=== PATIENT | male | born 1955 | race Hispanic/Latino ===

== ENCOUNTER 2018-12-20 14:48 | Inpatient (IN) | payer MEDICARE ==
[2018-12-20] MEDS ORDERED: REGLAN ONE (15:57)
[2018-12-20] MEDS ORDERED: REGLAN IV ONE (16:10)
[2018-12-20] MEDS ORDERED: NACL 0.9% 1000 ML 1,000 ML IV ONE (16:46)
[2018-12-20] MEDS ORDERED: KEPPRA 1,000 MG/NS 0.75% 100ML 1,000 MG/100 ML BAG IV ONE (16:49)
--- NOTE | 2018-12-20 16:51 | Emergency Department Report ---
HPI - General Chief Complaint: Neuro Symptoms/Deficit Time Seen by Provider: 12/20/18 16:08 - HPI HPI: Room 7 The patient is a 63-year-old male presenting with a chief complaint of seizure. The patient is in a personal halfway staff noted the patient had seizure this afternoon. Patient has no history of seizures. The patient now states he feels weak and dizzy. Staff stated over the past couple weeks they have noticed decrease activity with the patient but he has no specific complaints. 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 pneumonia - Surgical History Past Surgical History?: No Additional Surgical History: Tracheostomy secondary to pneumonia/respiratory failure - Family History Family history: no significant - Social History Smoking Status: Never Smoker Substance Use Type: None - Medications Home Medications: Home Medications Medication Instructions Recorded Confirmed Last Taken Type Aspirin [Adult Aspirin] 81 mg PO DAILY 12/20/18 12/20/18 Unknown History Carbidopa/Levodopa 25-250 [Sinemet 25 - 250 mg PO 4XD 12/20/18 12/20/18 Unknown History 25/250] Lisinopril/Hydrochlorothiazide 12.5 - 20 mg PO DAILY 12/20/18 12/20/18 Unknown History [Zestoretic 20-12.5 mg] Memantine [Namenda] 5 mg PO BID 12/20/18 12/20/18 Unknown History Tamsulosin HCl [Flomax] 0.4 mg PO DAILY 12/20/18 12/20/18 Unknown History amLODIPine [Norvasc] 10 mg PO DAILY 12/20/18 12/20/18 Unknown History ED Review of Systems ROS: Stated complaint: VOMITING/POSS AMS Other details as noted in HPI Constitutional: weakness Eyes: denies: eye pain ENT: denies: throat pain Respiratory: no symptoms reported Cardiovascular: denies: chest pain Endocrine: no symptoms reported Gastrointestinal: nausea, vomiting. denies: abdominal pain Genitourinary: denies: dysuria Musculoskeletal: denies: back pain Neurological: other (dizzy). denies: headache Physical Exam - Physical Exam Vital Signs: Vital Signs 12/20/18 12/20/18 14:59 15:20 Temperature 98.2 F Pulse Rate 66 63 Respiratory 16 16 Rate Blood Pressure 102/59 Blood Pressure 136/60 102/59 [Left] O2 Sat by Pulse 98 95 Oximetry Physical Exam: GENERAL: The patient is well-developed well-nourished male lying on stretcher not appearing to be in acute distress. [] HEENT: Normocephalic. Atraumatic. Extraocular motions are intact. Patient has moist mucous membranes. NECK: Supple. Trachea midline CHEST/LUNGS: Clear to auscultation. There is no respiratory distress noted. HEART/CARDIOVASCULAR: Regular. There is no tachycardia. There is no gallop rub or murmur. ABDOMEN: Abdomen is soft, nontender. Patient has normal bowel sounds. There is no abdominal distention. SKIN: There is no rash. There is no edema. There is no diaphoresis. NEURO: The patient is awake, alert, and oriented. The patient is cooperative. The patient has no focal neurologic deficits. The patient has normal speech. Cranial nerves II through XII grossly intact. MUSCULOSKELETAL: There is no evidence of acute injury. ED Course Vital Signs 12/20/18 12/20/18 14:59 15:20 Temperature 98.2 F Pulse Rate 66 63 Respiratory 16 16 Rate Blood Pressure 102/59 Blood Pressure 136/60 102/59 [Left] O2 Sat by Pulse 98 95 Oximetry ED Medical Decision Making - Lab Data Result diagrams: 12/20/18 16:46 12/20/18 16:46 Laboratory Tests 12/20/18 12/20/18 12/20/18 16:46 16:46 16:46 WBC 16.4 H RBC 4.42 Hgb 13.7 Hct 40.9 MCV 93 MCH 31 MCHC 34 RDW 14.8 Plt Count 220 Lymph % (Auto) 5.4 L Bee % (Auto) 5.7 Eos % (Auto) 0.3 Baso % (Auto) 0.4 Lymph # 0.9 L Bee # 0.9 H Eos # 0.1 Baso # 0.1 Seg Neutrophils % 88.2 H Seg Neutrophils # 14.4 H PT 14.1 INR 1.03 APTT 27.9 Sodium 137 Potassium 5.2 H Chloride 100.5 Carbon Dioxide 22 Anion Gap 20 BUN 39 H Creatinine 1.8 H Estimated GFR 39 BUN/Creatinine Ratio 22 Glucose 136 H Calcium 9.9 Magnesium 2.10 Total Bilirubin 0.40 AST 11 ALT < 5 L Alkaline Phosphatase 79 Total Creatine Kinase 28 L CK-MB (CK-2) < 1.0 CK-MB (CK-2) Rel Index 3.5 Troponin T < 0.010 Total Protein 7.6 Albumin 4.3 Albumin/Globulin Ratio 1.3 - Radiology Data Radiology results: report reviewed (CT head), image reviewed (CT head) [facility] [address] [place] [address] Cat Scan Report Signed Patient: SHAHEEN HOLCOMB MR#: [id number] : 1955 Acct:[id number] Age/Sex: 63 / M ADM Date: 12/20/18 Loc: ED Attending Dr: Ordering Physician: NIDIA WOOD MD Date of Service: 12/20/18 Procedure(s): CT head/brain wo con Accession Number(s): [id number] cc: NIDIA WOOD MD PROCEDURE: CT HEAD/BRAIN WO CON TECHNIQUE: CT examination of the head without IV contrast HISTORY: new-onset seizure COMPARISONS: None FINDINGS: Cerebrovascular atherosclerotic calcification is present in the skull base arteries. No acute air-fluid level visualized in the included air-filled sinuses. Bone windows demonstrate no acute fracture. There is ventricular and sulcal prominence compatible with global cerebrocortical atrophy. The brain contains no mass, mass effect, hemorrhage, or acute infarct. There is no extra-axial intracranial bleed, brain bleed, or midline shift. IMPRESSION: No acute CVA, intracranial bleed, or brain mass This document is electronically signed by Wood Kent MD., December 20 2018 05:56:06 PM ET Transcribed By: BAL Dictated By: WOOD KENT MD Electronically Authenticated By: WOOD KENT MD Signed Date/Time: 12/20/181756 DD/ 50 TD/TT: 12/20/181751 - Differential Diagnosis new-onset seizures, intracranial mass, ICH, electrolyte imbalance Critical care attestation.: If time is entered above; I have spent that time in minutes in the direct care of this critically ill patient, excluding procedure time. ED Disposition Clinical Impression: Seizure, Hyperkalemia, Acute renal failure Disposition: DC09 OP ADMIT IP TO THIS HOSP Is pt being admited?: Yes Does the pt Need Aspirin: No Condition: Fair Referrals: PRIMARY CARE, [Primary Care Provider] - 3-5 Days Time of Disposition: 18:13 (hospitalist notified (Dr Evangelista))
[2018-12-20 17:20] LABS: Basophils # (Auto) 0.1 K/mm3 (0.0-0.1); Basophils % (Auto) 0.4 % (0.0-1.8); Eosinophils # (Auto) 0.1 K/mm3 (0.0-0.4); Eosinophils % (Auto) 0.3 % (0.0-4.3); Hematocrit 40.9 % (35.5-45.6); Hemoglobin 13.7 gm/dl (11.8-15.2); Lymphocytes # (Auto) 0.9 K/mm3 (1.2-5.4); Lymphocytes % (Auto) 5.4 % (13.4-35.0); Mean Corpuscular HGB Conc 34 % (32-34); Mean Corpuscular Volume 93 fl (84-94); Monocytes # (Auto) 0.9 K/mm3 (0.0-0.8); Monocytes % (Auto) 5.7 % (0.0-7.3); Platelet Count 220 K/mm3 (140-440); Red Blood Count 4.42 M/mm3 (3.65-5.03); Red Cell Distribution Width 14.8 % (13.2-15.2)
[2018-12-20 17:25] LABS: Albumin 4.3 g/dL (3.9-5); BUN/Creatinine Ratio 22; Blood Urea Nitrogen 39 mg/dL (9-20); Calcium 9.9 mg/dL (8.4-10.2); Hemolysis Index 10
[2018-12-20 17:29] LABS: INR 1.03 (0.87-1.13)
[2018-12-20 17:30] LABS: Partial Thromboplastin Time 27.9 Sec. (24.2-36.6)
[2018-12-20 17:33] LABS: Alanine Aminotransferase < 5 units/L (7-56); Creatine Kinase MB < 1.0 ng/mL (0.0-4.0)
--- NOTE | 2018-12-20 17:57 | Cat Scan Report ---
PROCEDURE: CT HEAD/BRAIN WO CON TECHNIQUE: CT examination of the head without IV contrast HISTORY: new-onset seizure COMPARISONS: None FINDINGS: Cerebrovascular atherosclerotic calcification is present in the skull base arteries. No acute air-fluid level visualized in the included air-filled sinuses. Bone windows demonstrate no acute fracture. There is ventricular and sulcal prominence compatible with global cerebrocortical atrophy. The brain contains no mass, mass effect, hemorrhage, or acute infarct. There is no extra-axial intracranial bleed, brain bleed, or midline shift. IMPRESSION: No acute CVA, intracranial bleed, or brain mass This document is electronically signed by Wood Kent MD., December 20 2018 05:56:06 PM ET
[2018-12-20] MEDS ORDERED: KIONEX PO ONE (18:04)
[2018-12-21] MEDS ORDERED: PERCOCET 5/325 PO PRN (00:58)
[2018-12-21] MEDS ORDERED: SODIUM CHLORIDE FLUSH SYRINGE 10 ML IV PRN (00:58)
[2018-12-21] MEDS ORDERED: DILAUDID IV PRN (00:58)
[2018-12-21] MEDS ORDERED: TYLENOL PO PRN (00:58)
[2018-12-21] MEDS ORDERED: ZOFRAN IV PRN (00:58)
[2018-12-21] MEDS: NACL 0.9% 1000 ML 1,000 ML IV SCH ×2 (01:37→17:22)
[2018-12-21] MEDS: NAMENDA PO SCH ×3 (02:01→21:40)
[2018-12-21] MEDS: KEPPRA 750 MG in D5W 100 ML IV SCH ×2 (05:27→17:40)
--- NOTE | 2018-12-21 07:07 | Event Note ---
Date: 12/20/18 New onset seizures Parkinsonism
--- NOTE | 2018-12-21 08:05 | History and Physical Report ---
CHIEF COMPLAINT: New onset seizures. HISTORY OF PRESENT ILLNESS: A 63-year-old male, a resident of personal snf secondary to his parkinsonism, sent from personal snf for new onset seizures. The patient had tonic-clonic seizure movements lasting for about 1 minute as per the personal care staff and and son. The patient states that he feels weak and dizzy now. Some postictal activity present. PAST MEDICAL HISTORY: Parkinsonism, hypertension, GERD. PAST SURGICAL HISTORY: Tracheostomy secondary to pneumonia and respiratory failure. FAMILY HISTORY: Hypertension. SOCIAL HISTORY: Does not smoke. No alcohol, no recreational drugs. CURRENT MEDICATIONS: Namenda 5 mg twice a day, Flomax 0.4 daily, amlodipine 10 mg daily, Sinemet 25/250 four times a day, lisinopril 20 mg daily, hydrochlorothiazide 12.5 daily. REVIEW OF SYSTEMS: Significant for new onset seizures, slightly postictal. Otherwise, no other complaints. A 14-point review of systems is done. PHYSICAL EXAMINATION: GENERAL: A young elderly male, obese, cooperative during examination. VITAL SIGNS: Blood pressure is 106/64, temperature 98, pulse is 58, respirations 15. HEENT: Unremarkable. Pupils equal and reactive. NECK: Supple, no lymphadenopathy, no thyromegaly. LUNGS: Clear to auscultation and percussion. Good air entry. CARDIOVASCULAR: S1, S2 heard. No gallop, no murmur, no rub. Apical impulse in left fifth intercostal space and midclavicular line. ABDOMEN: Soft and benign. No hepatosplenomegaly. No guarding, no rigidity. Hernial orifices are normal. EXTREMITIES: Good pedal pulses. No pedal edema. CENTRAL NERVOUS SYSTEM: Alert and oriented x 4, nonfocal exam. SKIN: Normal. LABORATORY DATA: Head CT shows no acute CVA, no intracranial bleed, no brain mass. EKG, normal sinus rhythm. ASSESSMENT AND PLAN: 1. New onset seizures. The patient initiated on IV Keppra 750 q. 12. The patient to be transitioned to p.o. Keppra and possible discharge in 48 hours. 2. Hypertension. Continue lisinopril and amlodipine. 3 Parkinsonism. Continue Sinemet. 4. Dementia, mild. Continue Namenda. 5. Benign prostatic hypertrophy. Continue Flomax 0.4 daily. 6.WICHO IV fluids for now 7. Deep venous thrombosis prophylaxis, Lovenox 40 mg subcutaneous daily and gastrointestinal prophylaxis. JOB# [id number] ANNM/LACHO MTDD
[2018-12-21 09:04] LABS: Calcium 9.4 mg/dL (8.4-10.2)
[2018-12-21] MEDS: HALFPRIN EC PO SCH (09:46)
[2018-12-21] MEDS: PEPCID PO SCH ×2 (09:46→21:40)
[2018-12-21] MEDS: FLOMAX PO SCH (09:46)
[2018-12-21] MEDS: SINEMET PO SCH ×4 (09:46→21:40)
[2018-12-21] MEDS: SODIUM CHLORIDE FLUSH SYRINGE 10 ML IV SCH ×2 (09:47→21:40)
[2018-12-21] MEDS ORDERED: LISINOPRIL PO SCH (10:00)
[2018-12-21] MEDS ORDERED: ZESTRIL PO SCH (10:00)
[2018-12-21] MEDS ORDERED: HCTZ PO SCH (10:00)
[2018-12-21] MEDS ORDERED: NORVASC PO SCH (10:00)
[2018-12-21] MEDS ORDERED: HYDROCHLOROTHIAZIDE PO SCH (10:00)
--- NOTE | 2018-12-21 11:32 | Progress Note ---
Subjective Date of service: 12/21/18 Interval history: see my dictated note on this patient hx of Parkinson' Disease and now had seizure the CT of the ehad is negative will assess further check EEG and MRI seizures " as a rule" rare in Parkinson's therefore could well be renal based Objective - Vital Sign Vital Signs - 12hr 12/21/18 12/21/18 01:17 04:45 Temperature 98.6 F Pulse Rate 60 Respiratory 20 20 Rate Blood Pressure 104/54 O2 Sat by Pulse 95 Oximetry - Laboratory Findings CBC and BMP: 12/20/18 16:46 12/21/18 06:38 Abnormal Lab Findings: Abnormal Labs 12/20/18 12/20/18 12/21/18 16:46 16:46 01:13 WBC 16.4 H Lymph % (Auto) 5.4 L Lymph # 0.9 L [place] # 0.9 H Seg Neutrophils % 88.2 H Seg Neutrophils # 14.4 H Potassium 5.2 H BUN 39 H Creatinine 1.8 H Glucose 136 H Hemoglobin A1c 6.1 H ALT < 5 L Total Creatine Kinase 28 L 12/21/18 06:38 WBC Lymph % (Auto) Lymph # [place] # Seg Neutrophils % Seg Neutrophils # Potassium BUN 36 H Creatinine Glucose Hemoglobin A1c ALT Total Creatine Kinase
--- NOTE | 2018-12-21 13:55 | Progress Note ---
Assessment and Plan Assessment and plan: New onset seizure -On IV Keppra -MRI brain and EEG pending -Neurology consulted Acute kidney injury, probably prerenal -Creatinine level improving on IV fluid, will monitor Hyperkalemia -Resolved Leukocytosis -Probably reactive, will monitor History of Parkinson's disease -Continue carbi/levodopa Hypertension -Stable BPH -Continue tamsulosin Disposition: For discharge when medically stable History Interval history: Patient reports feeling better today. He has no new complaints. No seizure activity reported overnight. Hospitalist Physical - Constitutional Vitals: Temp Pulse Resp BP Pulse Ox 98.7 F 67 22 133/83 95 12/21/18 12:11 12/21/18 12:11 12/21/18 12:11 12/21/18 12:11 12/21/18 12:11 General appearance: Present: no acute distress - EENT Eyes: Present: PERRL, EOM intact ENT: hearing intact, clear oral mucosa - Neck Neck: Present: supple - Respiratory Respiratory effort: normal Respiratory: bilateral: CTA - Cardiovascular Rhythm: regular Heart Sounds: Present: S1 & S2 - Extremities Extremities: No edema - Abdominal General gastrointestinal: soft, non-tender, normal bowel sounds - Integumentary Integumentary: Present: clear, warm, dry - Neurologic Neurologic: other (Alert and oriented3) Results - Labs CBC & Chem 7: 12/20/18 16:46 12/21/18 06:38 Labs: Laboratory Last Values WBC 16.4 K/mm3 (4.5-11.0) H 12/20/18 16:46 RBC 4.42 M/mm3 (3.65-5.03) 12/20/18 16:46 Hgb 13.7 gm/dl (11.8-15.2) 12/20/18 16:46 Hct 40.9 % (35.5-45.6) 12/20/18 16:46 MCV 93 fl (84-94) 12/20/18 16:46 MCH 31 pg (28-32) 12/20/18 16:46 MCHC 34 % (32-34) 12/20/18 16:46 RDW 14.8 % (13.2-15.2) 12/20/18 16:46 Plt Count 220 K/mm3 (140-440) 12/20/18 16:46 Lymph % (Auto) 5.4 % (13.4-35.0) L 12/20/18 16:46 [place] % (Auto) 5.7 % (0.0-7.3) 12/20/18 16:46 Eos % (Auto) 0.3 % (0.0-4.3) 12/20/18 16:46 Baso % (Auto) 0.4 % (0.0-1.8) 12/20/18 16:46 Lymph # 0.9 K/mm3 (1.2-5.4) L 12/20/18 16:46 [place] # 0.9 K/mm3 (0.0-0.8) H 12/20/18 16:46 Eos # 0.1 K/mm3 (0.0-0.4) 12/20/18 16:46 Baso # 0.1 K/mm3 (0.0-0.1) 12/20/18 16:46 Seg Neutrophils % 88.2 % (40.0-70.0) H 12/20/18 16:46 Seg Neutrophils # 14.4 K/mm3 (1.8-7.7) H 12/20/18 16:46 PT 14.1 Sec. (12.2-14.9) 12/20/18 16:46 INR 1.03 (0.87-1.13) 12/20/18 16:46 APTT 27.9 Sec. (24.2-36.6) 12/20/18 16:46 Sodium 142 mmol/L (137-145) 12/21/18 06:38 Potassium 4.3 mmol/L (3.6-5.0) 12/21/18 06:38 Chloride 103.6 mmol/L (98-107) 12/21/18 06:38 Carbon Dioxide 23 mmol/L (22-30) 12/21/18 06:38 Anion Gap 20 mmol/L 12/21/18 06:38 BUN 36 mg/dL (9-20) H 12/21/18 06:38 Creatinine 1.4 mg/dL (0.8-1.5) 12/21/18 06:38 Estimated GFR 52 ml/min 12/21/18 06:38 BUN/Creatinine Ratio 26 % 12/21/18 06:38 Glucose 85 mg/dL (75-100) 12/21/18 06:38 Hemoglobin A1c 6.1 % (4-6) H 12/21/18 01:13 Calcium 9.4 mg/dL (8.4-10.2) 12/21/18 06:38 Magnesium 2.10 mg/dL (1.7-2.3) 12/20/18 16:46 Total Bilirubin 0.40 mg/dL (0.1-1.2) 12/20/18 16:46 AST 11 units/L (5-40) 12/20/18 16:46 ALT < 5 units/L (7-56) L 12/20/18 16:46 Alkaline Phosphatase 79 units/L (35-129) 12/20/18 16:46 Total Creatine Kinase 28 units/L (55-170) L 12/20/18 16:46 CK-MB (CK-2) < 1.0 ng/mL (0.0-4.0) 12/20/18 16:46 CK-MB (CK-2) Rel Index 3.5 (0-4) 12/20/18 16:46 Troponin T < 0.010 ng/mL (0.00-0.029) 12/20/18 16:46 Total Protein 7.6 g/dL (6.3-8.2) 12/20/18 16:46 Albumin 4.3 g/dL (3.9-5) 12/20/18 16:46 Albumin/Globulin Ratio 1.3 % 12/20/18 16:46 Active Medications - Current Medications Current Medications: Generic Name Dose Route Start Last Admin Trade Name Freq PRN Reason Stop Dose Admin Acetaminophen 650 mg 12/21/18 00:58 Tylenol PO Q4H PRN Pain MILD(1-3)/Fever >100.5/MORALES Aspirin 81 mg 12/21/18 10:00 12/21/18 09:46 Halfprin Ec PO 81 mg DAILY DARCI Administration Carbidopa/Levodopa 1 each 12/21/18 10:00 12/21/18 13:29 Sinemet PO 1 each QID DARCI Administration Enoxaparin Sodium 40 mg 12/21/18 22:00 Lovenox SUB-Q QDAY@2200 DARCI Famotidine 20 mg 12/21/18 10:00 12/21/18 09:46 Pepcid PO 20 mg BID DARCI Administration Hydromorphone HCl 0.5 mg 12/21/18 00:58 Dilaudid IV Q3H PRN Pain , Severe (7-10) Sodium Chloride 1,000 mls @ 75 mls/hr 12/21/18 01:00 12/21/18 01:37 Nacl 0.9% 1000 Ml IV 75 mls/hr DIRECT DARCI Administration Levetiracetam 750 mg/ Dextrose 107.5 mls @ 400 mls/hr 12/21/18 06:00 12/21/18 05:27 IV 400 mls/hr Q12H DARCI Administration Memantine 5 mg 12/21/18 01:00 12/21/18 09:46 Namenda PO 5 mg BID DARCI Administration Ondansetron HCl 4 mg 12/21/18 00:58 Zofran IV Q8H PRN Nausea And Vomiting Oxycodone/Acetaminophen 1 tab 12/21/18 00:58 Percocet 5/325 PO Q6H PRN Pain, Moderate (4-6) Sodium Chloride 10 ml 12/21/18 10:00 12/21/18 09:47 Sodium Chloride Flush Syringe 10 Ml IV 10 ml BID DARCI Administration Sodium Chloride 10 ml 12/21/18 00:58 Sodium Chloride Flush Syringe 10 Ml IV PRN PRN LINE FLUSH Tamsulosin HCl 0.4 mg 12/21/18 10:00 12/21/18 09:46 Flomax PO 0.4 mg DAILY DARCI Administration
--- NOTE | 2018-12-21 18:47 | Consultation ---
HISTORY OF PRESENT ILLNESS: This is a 63-year-old white male that is admitted to [facility] via the Emergency Room after he had presented with a generalized seizure. The patient was by his history in a personal senior care. He had a generalized seizure, became dizzy. He states he has Parkinson's disease. He has been taking amantadine, Flomax, lisinopril, and Sinemet mg 4 times a day, who presented to the Emergency Room, he was normotensive. His labs showed hematocrit of 40.9, PT of 14.1, calcium is 2.1, glucose is 136, AST and ALT levels were unremarkable. Total protein is 4.3. The patient was assessed thought to have new onset of seizures, rule out intracranial mass, intracranial hemorrhage, electrolyte imbalance. He is also thought to have severe hyperkalemia with a potassium of 5.2 and creatinine of 1.8. PHYSICAL EXAMINATION: GENERAL: Reveals he is alert, responsive. Affect is appropriate. Speech is clear. NECK: Supple: VITAL SIGNS: Blood pressure is 150/80, pulse rate 80, respirations 18. NEUROLOGIC: A slight increased rigidity, no marked tremors are noted. He is alert and oriented. He knows where he is. He can follow simple commands. I do not see any seizure activity on examining him. The patient does not have any overt symptoms of severe Parkinson's disease. Memory is good. IMPRESSION AND PLAN: This patient has a generalized seizure. Certainly this could be related to his renal failure and/or his elevated potassium. Would recommend starting the patient on Keppra therapy. We will get EEG and MRI scan of the brain to further assess the patient's condition. JOB# [id number] ROXANNE/NTS
[2018-12-21] MEDS: LOVENOX SUB-Q SCH (21:40)
[2018-12-22] MEDS: NACL 0.9% 1000 ML 1,000 ML IV SCH (03:27)
[2018-12-22] MEDS: KEPPRA 750 MG in D5W 100 ML IV SCH ×2 (07:15→17:58)
[2018-12-22 08:36] LABS: Alanine Aminotransferase 12 units/L (7-56); BUN/Creatinine Ratio 24; Blood Urea Nitrogen 26 mg/dL (9-20); Hemolysis Index 5
[2018-12-22 10:38] LABS: Basophils % (Auto) 0.6 % (0.0-1.8); Eosinophils # (Auto) 0.3 K/mm3 (0.0-0.4); Eosinophils % (Auto) 4.2 % (0.0-4.3); Hematocrit 36.9 % (35.5-45.6); Hemoglobin 12.6 gm/dl (11.8-15.2); Lymphocytes # (Auto) 2.3 K/mm3 (1.2-5.4); Lymphocytes % (Auto) 32.5 % (13.4-35.0); Mean Corpuscular HGB Conc 34 % (32-34); Mean Corpuscular Volume 93 fl (84-94); Monocytes # (Auto) 0.7 K/mm3 (0.0-0.8); Monocytes % (Auto) 9.6 % (0.0-7.3); Platelet Count 189 K/mm3 (140-440); Red Blood Count 3.97 M/mm3 (3.65-5.03); Red Cell Distribution Width 14.9 % (13.2-15.2)
--- NOTE | 2018-12-22 11:06 | Progress Note ---
Assessment and Plan Assessment and plan: New onset seizure -Continue IV Keppra -MRI brain and EEG pending -Neurology following Acute kidney injury, probably prerenal azotemia -Resolved Hyperkalemia -Resolved Leukocytosis -Probably reactive, resolved -Urinalysis negative History of Parkinson's disease -Continue carbi/levodopa Hypertension -Stable BPH -Continue tamsulosin Disposition: Awaiting pending studies before discharge planning History Interval history: Patient has no new complaints. No seizure activity reported overnight. Hospitalist Physical - Constitutional Vitals: Temp Pulse Resp BP Pulse Ox 98.6 F 60 24 117/64 94 12/22/18 04:55 12/22/18 04:55 12/22/18 04:55 12/22/18 04:55 12/22/18 04:55 General appearance: Present: no acute distress - EENT Eyes: Present: PERRL, EOM intact ENT: hearing intact, clear oral mucosa - Neck Neck: Present: supple - Respiratory Respiratory effort: normal Respiratory: bilateral: CTA - Cardiovascular Rhythm: regular Heart Sounds: Present: S1 & S2 - Extremities Extremities: No edema - Abdominal General gastrointestinal: soft, non-tender, normal bowel sounds - Integumentary Integumentary: Present: clear, warm, dry - Neurologic Neurologic: other (Alert and oriented x3) Results - Labs CBC & Chem 7: 12/22/18 06:41 12/22/18 06:41 Labs: Laboratory Last Values WBC 7.2 K/mm3 (4.5-11.0) 12/22/18 06:41 RBC 3.97 M/mm3 (3.65-5.03) 12/22/18 06:41 Hgb 12.6 gm/dl (11.8-15.2) 12/22/18 06:41 Hct 36.9 % (35.5-45.6) 12/22/18 06:41 MCV 93 fl (84-94) 12/22/18 06:41 MCH 32 pg (28-32) 12/22/18 06:41 MCHC 34 % (32-34) 12/22/18 06:41 RDW 14.9 % (13.2-15.2) 12/22/18 06:41 Plt Count 189 K/mm3 (140-440) 12/22/18 06:41 Lymph % (Auto) 32.5 % (13.4-35.0) 12/22/18 06:41 [place] % (Auto) 9.6 % (0.0-7.3) H 12/22/18 06:41 Eos % (Auto) 4.2 % (0.0-4.3) 12/22/18 06:41 Baso % (Auto) 0.6 % (0.0-1.8) 12/22/18 06:41 Lymph # 2.3 K/mm3 (1.2-5.4) 12/22/18 06:41 [place] # 0.7 K/mm3 (0.0-0.8) 12/22/18 06:41 Eos # 0.3 K/mm3 (0.0-0.4) 12/22/18 06:41 Baso # 0.0 K/mm3 (0.0-0.1) 12/22/18 06:41 Seg Neutrophils % 53.1 % (40.0-70.0) 12/22/18 06:41 Seg Neutrophils # 3.8 K/mm3 (1.8-7.7) 12/22/18 06:41 PT 14.1 Sec. (12.2-14.9) 12/20/18 16:46 INR 1.03 (0.87-1.13) 12/20/18 16:46 APTT 27.9 Sec. (24.2-36.6) 12/20/18 16:46 Sodium 142 mmol/L (137-145) 12/22/18 06:41 Potassium 4.0 mmol/L (3.6-5.0) 12/22/18 06:41 Chloride 106.2 mmol/L (98-107) 12/22/18 06:41 Carbon Dioxide 24 mmol/L (22-30) 12/22/18 06:41 Anion Gap 16 mmol/L 12/22/18 06:41 BUN 26 mg/dL (9-20) H 12/22/18 06:41 Creatinine 1.1 mg/dL (0.8-1.5) 12/22/18 06:41 Estimated GFR > 60 ml/min 12/22/18 06:41 BUN/Creatinine Ratio 24 % 12/22/18 06:41 Glucose 87 mg/dL (75-100) 12/22/18 06:41 Hemoglobin A1c 6.1 % (4-6) H 12/21/18 01:13 Calcium 9.0 mg/dL (8.4-10.2) 12/22/18 06:41 Magnesium 2.10 mg/dL (1.7-2.3) 12/20/18 16:46 Total Bilirubin 0.30 mg/dL (0.1-1.2) 12/22/18 06:41 AST 11 units/L (5-40) 12/22/18 06:41 ALT 12 units/L (7-56) 12/22/18 06:41 Alkaline Phosphatase 68 units/L (35-129) 12/22/18 06:41 Total Creatine Kinase 28 units/L (55-170) L 12/20/18 16:46 CK-MB (CK-2) < 1.0 ng/mL (0.0-4.0) 12/20/18 16:46 CK-MB (CK-2) Rel Index 3.5 (0-4) 12/20/18 16:46 Troponin T < 0.010 ng/mL (0.00-0.029) 12/20/18 16:46 Total Protein 6.8 g/dL (6.3-8.2) 12/22/18 06:41 Albumin 4.0 g/dL (3.9-5) 12/22/18 06:41 Albumin/Globulin Ratio 1.4 % 12/22/18 06:41 Active Medications - Current Medications Current Medications: Generic Name Dose Route Start Last Admin Trade Name Freq PRN Reason Stop Dose Admin Acetaminophen 650 mg 12/21/18 00:58 Tylenol PO Q4H PRN Pain MILD(1-3)/Fever >100.5/MORALES Aspirin 81 mg 12/21/18 10:00 12/21/18 09:46 Halfprin Ec PO 81 mg DAILY DARCI Administration Carbidopa/Levodopa 1 each 12/21/18 10:00 12/21/18 21:40 Sinemet PO 1 each QID DARCI Administration Enoxaparin Sodium 40 mg 12/21/18 22:00 12/21/18 21:40 Lovenox SUB-Q 40 mg QDAY@2200 DARCI Administration Famotidine 20 mg 12/21/18 10:00 12/21/18 21:40 Pepcid PO 20 mg BID DARCI Administration Hydromorphone HCl 0.5 mg 12/21/18 00:58 Dilaudid IV Q3H PRN Pain , Severe (7-10) Sodium Chloride 1,000 mls @ 75 mls/hr 12/21/18 01:00 12/22/18 03:27 Nacl 0.9% 1000 Ml IV 75 mls/hr DIRECT DARCI Administration Levetiracetam 750 mg/ Dextrose 107.5 mls @ 400 mls/hr 12/21/18 06:00 12/22/18 07:15 IV 400 mls/hr Q12H DARCI Administration Memantine 5 mg 12/21/18 01:00 12/21/18 21:40 Namenda PO 5 mg BID DARCI Administration Ondansetron HCl 4 mg 12/21/18 00:58 Zofran IV Q8H PRN Nausea And Vomiting Oxycodone/Acetaminophen 1 tab 12/21/18 00:58 Percocet 5/325 PO Q6H PRN Pain, Moderate (4-6) Sodium Chloride 10 ml 12/21/18 10:00 12/21/18 21:40 Sodium Chloride Flush Syringe 10 Ml IV 10 ml BID DARCI Administration Sodium Chloride 10 ml 12/21/18 00:58 Sodium Chloride Flush Syringe 10 Ml IV PRN PRN LINE FLUSH Tamsulosin HCl 0.4 mg 12/21/18 10:00 12/21/18 09:46 Flomax PO 0.4 mg DAILY DARCI Administration
[2018-12-22] MEDS: PEPCID PO SCH ×2 (12:55→21:55)
[2018-12-22] MEDS: HALFPRIN EC PO SCH (12:55)
[2018-12-22] MEDS: SINEMET PO SCH ×4 (12:55→21:55)
[2018-12-22] MEDS: FLOMAX PO SCH (12:56)
[2018-12-22] MEDS: NAMENDA PO SCH ×2 (12:56→21:54)
[2018-12-22] MEDS: SODIUM CHLORIDE FLUSH SYRINGE 10 ML IV SCH ×2 (12:57→22:32)
--- NOTE | 2018-12-22 20:42 | Magnetic Resonance Report ---
PROCEDURE: MR BRAIN WO CON HISTORY: new onset seizure FINDINGS: MRI of the brain was performed using sagittal T1, axial diffusion, axial T2, axial FLAIR, a xial T2*gradient echo, and coronal FLAIR images. These images demonstrate that there is a complete corpus callosum. There is no Chiari malformation. Diffusion-weighted images demonstrate no acute transcortical or acute lacunar infarct. There is normal wong-white differentiation. There are mild chronic-appearing small vessel ischemic wh ite matter changes in the subcortical and periventricular white matter. There are normal flow voids in the vertebral arteries, basilar artery, and both internal carotid ezequiel baljit. The mastoid air cells and middle ears appear clear. There is no evidence of acute sinusitis. IMPRESSION: No acute transcortical or acute lacunar infarct This document is electronically signed by Jefferson Orta MD., December 22 2018 08:40:18 PM ET
[2018-12-22] MEDS: LOVENOX SUB-Q SCH (21:55)
[2018-12-23] MEDS: HALFPRIN EC PO SCH (10:34)
[2018-12-23] MEDS: KEPPRA PO SCH ×2 (10:34→22:00)
[2018-12-23] MEDS: FLOMAX PO SCH (10:35)
[2018-12-23] MEDS: SINEMET PO SCH ×3 (10:35→18:00)
[2018-12-23] MEDS: PEPCID PO SCH ×2 (10:36→22:00)
[2018-12-23] MEDS: NAMENDA PO SCH ×2 (10:36→22:00)
--- NOTE | 2018-12-23 12:49 | Progress Note ---
Assessment and Plan Assessment and plan: New onset seizure -Stable -Continue oral Keppra -MRI brain negative for acute findings. EEG pending -Neurology following Acute kidney injury -probably vasomotor nephropathy -Resolved Hyperkalemia -Resolved Leukocytosis -Probably reactive, resolved -Urinalysis negative History of Parkinson's disease -stable -Continue carbi/levodopa Hypertension -Stable, home amlodipine resumed BPH -Continue tamsulosin Physical deconditioning -PT consulted Disposition: Awaiting EEG before discharge. History Interval history: Patient reported some wheezing this morning. No seizure activity reported overnight. Hospitalist Physical - Constitutional Vitals: Temp Pulse Resp BP Pulse Ox 98.0 F 61 18 141/76 93 12/23/18 11:54 12/23/18 11:54 12/23/18 11:54 12/23/18 11:54 12/23/18 11:54 General appearance: Present: no acute distress - EENT Eyes: Present: PERRL, EOM intact ENT: hearing intact, clear oral mucosa - Neck Neck: Present: supple, normal ROM - Respiratory Respiratory effort: normal Respiratory: bilateral: CTA - Cardiovascular Rhythm: regular Heart Sounds: Present: S1 & S2 - Extremities Extremities: No edema - Abdominal General gastrointestinal: soft, non-tender, normal bowel sounds - Integumentary Integumentary: Present: clear, warm, dry - Neurologic Neurologic: moves all extremities Results - Labs CBC & Chem 7: 12/22/18 06:41 12/22/18 06:41 Labs: Laboratory Last Values WBC 7.2 K/mm3 (4.5-11.0) 12/22/18 06:41 RBC 3.97 M/mm3 (3.65-5.03) 12/22/18 06:41 Hgb 12.6 gm/dl (11.8-15.2) 12/22/18 06:41 Hct 36.9 % (35.5-45.6) 12/22/18 06:41 MCV 93 fl (84-94) 12/22/18 06:41 MCH 32 pg (28-32) 12/22/18 06:41 MCHC 34 % (32-34) 12/22/18 06:41 RDW 14.9 % (13.2-15.2) 12/22/18 06:41 Plt Count 189 K/mm3 (140-440) 12/22/18 06:41 Lymph % (Auto) 32.5 % (13.4-35.0) 12/22/18 06:41 [place] % (Auto) 9.6 % (0.0-7.3) H 12/22/18 06:41 Eos % (Auto) 4.2 % (0.0-4.3) 12/22/18 06:41 Baso % (Auto) 0.6 % (0.0-1.8) 12/22/18 06:41 Lymph # 2.3 K/mm3 (1.2-5.4) 12/22/18 06:41 [place] # 0.7 K/mm3 (0.0-0.8) 12/22/18 06:41 Eos # 0.3 K/mm3 (0.0-0.4) 12/22/18 06:41 Baso # 0.0 K/mm3 (0.0-0.1) 12/22/18 06:41 Seg Neutrophils % 53.1 % (40.0-70.0) 12/22/18 06:41 Seg Neutrophils # 3.8 K/mm3 (1.8-7.7) 12/22/18 06:41 PT 14.1 Sec. (12.2-14.9) 12/20/18 16:46 INR 1.03 (0.87-1.13) 12/20/18 16:46 APTT 27.9 Sec. (24.2-36.6) 12/20/18 16:46 Sodium 142 mmol/L (137-145) 12/22/18 06:41 Potassium 4.0 mmol/L (3.6-5.0) 12/22/18 06:41 Chloride 106.2 mmol/L (98-107) 12/22/18 06:41 Carbon Dioxide 24 mmol/L (22-30) 12/22/18 06:41 Anion Gap 16 mmol/L 12/22/18 06:41 BUN 26 mg/dL (9-20) H 12/22/18 06:41 Creatinine 1.1 mg/dL (0.8-1.5) 12/22/18 06:41 Estimated GFR > 60 ml/min 12/22/18 06:41 BUN/Creatinine Ratio 24 % 12/22/18 06:41 Glucose 87 mg/dL (75-100) 12/22/18 06:41 Hemoglobin A1c 6.1 % (4-6) H 12/21/18 01:13 Calcium 9.0 mg/dL (8.4-10.2) 12/22/18 06:41 Magnesium 2.10 mg/dL (1.7-2.3) 12/20/18 16:46 Total Bilirubin 0.30 mg/dL (0.1-1.2) 12/22/18 06:41 AST 11 units/L (5-40) 12/22/18 06:41 ALT 12 units/L (7-56) 12/22/18 06:41 Alkaline Phosphatase 68 units/L (35-129) 12/22/18 06:41 Total Creatine Kinase 28 units/L (55-170) L 12/20/18 16:46 CK-MB (CK-2) < 1.0 ng/mL (0.0-4.0) 12/20/18 16:46 CK-MB (CK-2) Rel Index 3.5 (0-4) 12/20/18 16:46 Troponin T < 0.010 ng/mL (0.00-0.029) 12/20/18 16:46 Total Protein 6.8 g/dL (6.3-8.2) 12/22/18 06:41 Albumin 4.0 g/dL (3.9-5) 12/22/18 06:41 Albumin/Globulin Ratio 1.4 % 12/22/18 06:41 Active Medications - Current Medications Current Medications: Generic Name Dose Route Start Last Admin Trade Name Mattq PRN Reason Stop Dose Admin Acetaminophen 650 mg 12/21/18 00:58 Tylenol PO Q4H PRN Pain MILD(1-3)/Fever >100.5/MORALES Aspirin 81 mg 12/21/18 10:00 12/23/18 10:34 Halfprin Ec PO 81 mg DAILY DARCI Administration Carbidopa/Levodopa 1 each 12/21/18 10:00 12/23/18 10:35 Sinemet PO 1 each QID DARCI Administration Enoxaparin Sodium 40 mg 12/21/18 22:00 12/22/18 21:55 Lovenox SUB-Q 40 mg QDAY@2200 DARCI Administration Famotidine 20 mg 12/21/18 10:00 12/23/18 10:36 Pepcid PO 20 mg BID DARCI Administration Hydromorphone HCl 0.5 mg 12/21/18 00:58 Dilaudid IV Q3H PRN Pain , Severe (7-10) Levetiracetam 750 mg 12/23/18 10:00 12/23/18 10:34 Keppra PO 750 mg BID DARCI Administration Memantine 5 mg 12/21/18 01:00 12/23/18 10:36 Namenda PO 5 mg BID DARCI Administration Ondansetron HCl 4 mg 12/21/18 00:58 Zofran IV Q8H PRN Nausea And Vomiting Oxycodone/Acetaminophen 1 tab 12/21/18 00:58 Percocet 5/325 PO Q6H PRN Pain, Moderate (4-6) Sodium Chloride 10 ml 12/21/18 10:00 12/22/18 22:32 Sodium Chloride Flush Syringe 10 Ml IV 10 ml BID DARCI Administration Sodium Chloride 10 ml 12/21/18 00:58 Sodium Chloride Flush Syringe 10 Ml IV PRN PRN LINE FLUSH Tamsulosin HCl 0.4 mg 12/21/18 10:00 12/23/18 10:35 Flomax PO 0.4 mg DAILY DARCI Administration
[2018-12-23] MEDS: SODIUM CHLORIDE FLUSH SYRINGE 10 ML IV SCH ×2 (14:36→22:00)
[2018-12-23] MEDS: NORVASC PO SCH (14:36)
--- NOTE | 2018-12-23 16:24 | Progress Note ---
Subjective Date of service: 12/23/18 Interval history: the recent EEG is normal for age and did not confirm epilepsy Objective - Vital Sign Vital Signs - 12hr 12/23/18 12/23/18 12/23/18 06:01 10:53 11:54 Temperature 98.0 F 98.0 F Pulse Rate 51 L 71 61 Respiratory 18 18 18 Rate Blood Pressure 140/81 141/76 O2 Sat by Pulse 95 99 93 Oximetry 12/23/18 14:36 Temperature Pulse Rate 61 Respiratory Rate Blood Pressure 141/76 O2 Sat by Pulse Oximetry - Laboratory Findings CBC and BMP: 12/22/18 06:41 12/22/18 06:41 Abnormal Lab Findings: Abnormal Labs 12/20/18 12/20/18 12/21/18 16:46 16:46 01:13 WBC 16.4 H Lymph % (Auto) 5.4 L [place] % (Auto) Lymph # 0.9 L [place] # 0.9 H Seg Neutrophils % 88.2 H Seg Neutrophils # 14.4 H Potassium 5.2 H BUN 39 H Creatinine 1.8 H Glucose 136 H Hemoglobin A1c 6.1 H ALT < 5 L Total Creatine Kinase 28 L 12/21/18 12/22/18 12/22/18 06:38 06:41 06:41 WBC Lymph % (Auto) [place] % (Auto) 9.6 H Lymph # [place] # Seg Neutrophils % Seg Neutrophils # Potassium BUN 36 H 26 H Creatinine Glucose Hemoglobin A1c ALT Total Creatine Kinase
--- NOTE | 2018-12-23 16:27 | Progress Note ---
Subjective Date of service: 12/23/18 Interval history: I only note scattered white matter changes from degnerative disease c/w Parkinson Disease OK to go back to assisted living with keppra therapy Objective - Vital Sign Vital Signs - 12hr 12/23/18 12/23/18 12/23/18 06:01 10:53 11:54 Temperature 98.0 F 98.0 F Pulse Rate 51 L 71 61 Respiratory 18 18 18 Rate Blood Pressure 140/81 141/76 O2 Sat by Pulse 95 99 93 Oximetry 12/23/18 14:36 Temperature Pulse Rate 61 Respiratory Rate Blood Pressure 141/76 O2 Sat by Pulse Oximetry - Laboratory Findings CBC and BMP: 12/22/18 06:41 12/22/18 06:41 Abnormal Lab Findings: Abnormal Labs 12/20/18 12/20/18 12/21/18 16:46 16:46 01:13 WBC 16.4 H Lymph % (Auto) 5.4 L [place] % (Auto) Lymph # 0.9 L [place] # 0.9 H Seg Neutrophils % 88.2 H Seg Neutrophils # 14.4 H Potassium 5.2 H BUN 39 H Creatinine 1.8 H Glucose 136 H Hemoglobin A1c 6.1 H ALT < 5 L Total Creatine Kinase 28 L 12/21/18 12/22/18 12/22/18 06:38 06:41 06:41 WBC Lymph % (Auto) [place] % (Auto) 9.6 H Lymph # [place] # Seg Neutrophils % Seg Neutrophils # Potassium BUN 36 H 26 H Creatinine Glucose Hemoglobin A1c ALT Total Creatine Kinase
[2018-12-23] MEDS: LOVENOX SUB-Q SCH (22:00)
[2018-12-24] MEDS: SINEMET PO SCH ×3 (00:50→13:15)
--- NOTE | 2018-12-24 10:13 | Discharge Summary ---
Providers - Providers Date of Admission: 12/20/18 18:22 Attending physician: BRIAN MORALES MD 12/21/18 00:58 Consult to Physician [CONS] Routine Comment: Consulting Provider: KRISHNA PATEL Physician Instructions: Reason For Exam: New onset seizures 12/23/18 10:48 Physical Therapy Evaluation and Treat [CONS] Urgent Comment: Reason For Exam: Bilat. lower ext. weakness Mode of Transport?: Walker Weight bearing status?: Full wt bearing Assistive devices?: Yes: walker Primary care physician: SUBMARINE DIVER Hospitalization Reason for admission: seizure Condition: Fair Hospital course: The patient is a 63-year-old male presenting with a chief complaint of seizure. The patient is in a personal jail staff noted the patient had seizure this afternoon. Patient has no history of seizures. The patient now states he feels weak and dizzy. Staff stated over the past couple weeks they have noticed decrease activity with the patient but he has no specific complaints. This was according to documentation by the ED patient was managed with Neurology was consulted with the EEG done. The patient reported back E levodopa makes him drowsy and emesis since stopped taking if she is feeling much better here in the hospital but review of records shows that the patient is taking the medication. Case management is discussed with the family who wanted hospice evaluation outpatient. Neurology evaluation patient MRI shows white matter changes consistent with degenerative disease consistent with Parkinson disease and is okay to return to assisted living with Her therapy. This has been started and patient is stable for discharge MRI again was negative New onset seizure Acute kidney injury secondary to vasomotor nephropathy -Resolved Hyperkalemia -Resolved Leukocytosis -Probably reactive, resolved -Urinalysis negative Parkinson's disease -stable -Continue carbi/levodopa Hypertension -Stable, home amlodipine resumed BPH -Continue tamsulosin Physical deconditioning -PT consulted Disposition: [id number]/[place]-[facility] Time spent for discharge: 35 mins Core Measure Documentation - Palliative Care Palliative Care/ Comfort Measures: Not Applicable - Core Measures Any of the following diagnoses?: none Exam - Physical Exam Narrative exam: General appearance: Present: no acute distress - EENT Eyes: Present: PERRL, EOM intact ENT: hearing intact, clear oral mucosa - Neck Neck: Present: supple, normal ROM - Respiratory Respiratory effort: normal Respiratory: bilateral: CTA - Cardiovascular Rhythm: regular Heart Sounds: Present: S1 & S2 - Extremities Extremities: trace dependant edema bilaterally - Abdominal General gastrointestinal: soft, non-tender, normal bowel sounds - Integumentary Integumentary: Present: clear, warm, dry, - Neurologic Neurologic: moves all extremities - Constitutional Vitals: Temp Pulse Resp BP Pulse Ox 98.8 F 54 L 20 145/89 93 12/24/18 05:53 12/24/18 05:53 12/24/18 05:53 12/24/18 05:53 12/24/18 05:53 Plan Activity: advance as tolerated, fall precautions, other (ambulate with assistance) Diet: low fat Special Instructions: record daily weights, record daily BP diary, follow up in rehab, physical therapy, occupational therapy Follow up with: PRIMARY CARE, [Primary Care Provider] - 3-5 Days KRISHNA PATEL MD [Staff Physician] - 7 Days Prescriptions: levETIRAcetam [Keppra TAB] 750 mg PO BID #60 tablet
[2018-12-24] MEDS: KEPPRA PO SCH (11:26)
[2018-12-24] MEDS: PEPCID PO SCH (11:26)
[2018-12-24] MEDS: FLOMAX PO SCH (11:26)
[2018-12-24] MEDS: NAMENDA PO SCH (11:26)
[2018-12-24] MEDS: HALFPRIN EC PO SCH (11:27)
[2018-12-24] MEDS: NORVASC PO SCH (11:27)
[2018-12-24] MEDS: SODIUM CHLORIDE FLUSH SYRINGE 10 ML IV SCH (11:28)
[2018-12-24 13:10] VITALS: BP 140/91
== END 2018-12-24 14:00 | disposition hospice, home (50) | DRG 100 ==
LOC: ED 14:48 → 3A 18:22
PROVIDERS: ADMIT Internal Medicine; ATTEND Internal Medicine
DX: R56.9 Unspecified convulsions (principal); N17.0 Acute kidney failure with tubular necrosis; E87.5 Hyperkalemia; G20 Parkinson's disease; I10 Essential (primary) hypertension; N40.0 Benign prostatic hyperplasia without lower urinary tract symptoms; F02.80 Dementia in other diseases classified elsewhere, unspecified severity, without behavioral disturbance, psychotic disturbance, mood disturbance, and anxiety; K21.9 Gastro-esophageal reflux disease without esophagitis; Z79.82 Long term (current) use of aspirin
CPT/HCPCS: 36415; 70450; 70551; 80048; 80053; 82550; 82553; 83036; 83735; 84484; 85025; 85610; 85730; 95819; G0378; J1650; J1953; J2765; J7030

== ENCOUNTER 2019-04-20 16:58 | Inpatient (IN) | payer MEDICARE ==
[~2019-04-20 16:58] MED LIST: ASPIRIN PO SCH
--- NOTE | 2019-04-20 17:05 | Emergency Department Report ---
ED Neuro Deficit HPI - General Stated Complaint: HYPERTENSION/STROKE Time Seen by Provider: 04/20/19 17:01 Source: patient, EMS Mode of arrival: Stretcher Limitations: No Limitations - History of Present Illness Initial Comments: 63 yo male hx of htn and parkinsons stroke sx since 1-2pm: difficulty speaking physical therapist came to home about 2:30p and noticed slurred speech and elevated bp frontal headache reported BP high in route 240/120 as per ems ems reports normal glucose Patient states he has had high blood pressure in the past but has not been on medications for 6 months to a year because his blood pressure has been okay. He is only his Parkinson's medication. - Related Data Home Medications: Home Medications Medication Instructions Recorded Confirmed Last Taken Aspirin [Adult Aspirin] 81 mg PO DAILY 12/20/18 04/20/19 04/20/19 Carbidopa/Levodopa 25-250 [Sinemet 25 - 250 mg PO 4XD 12/20/18 04/20/19 04/20/19 25/250] Lisinopril/Hydrochlorothiazide 12.5 - 20 mg PO DAILY 12/20/18 04/20/19 04/20/19 [Zestoretic 20-12.5 mg] Memantine [Namenda] 5 mg PO BID 12/20/18 04/20/19 04/20/19 Tamsulosin HCl [Flomax] 0.4 mg PO DAILY 12/20/18 04/20/19 04/20/19 Previous Rx's Medication Instructions Recorded Last Taken Type levETIRAcetam [Keppra TAB] 750 mg PO BID #60 tablet 12/24/18 04/20/19 Rx Allergies/Adverse Reactions: Allergies Allergy/AdvReac Type Severity Reaction Status Date / Time No Known Allergies Allergy Verified 04/20/19 19:35 ED Review of Systems ROS: Stated complaint: HYPERTENSION/STROKE Other details as noted in HPI Comment: All other systems reviewed and negative ED Past Medical Hx - Past Medical History Hx Hypertension: Yes Hx GERD: Yes Hx Seizures: Yes Additional medical history: parkinson. pneumonia - Surgical History Additional Surgical History: Tracheostomy secondary to pneumonia/respiratory failure - Social History Smoking Status: Never Smoker - Medications Home Medications: Home Medications Medication Instructions Recorded Confirmed Last Taken Type Aspirin [Adult Aspirin] 81 mg PO DAILY 12/20/18 04/20/19 04/20/19 History Carbidopa/Levodopa 25-250 [Sinemet 25 - 250 mg PO 4XD 12/20/18 04/20/19 04/20/19 History 25/250] Lisinopril/Hydrochlorothiazide 12.5 - 20 mg PO DAILY 12/20/18 04/20/19 04/20/19 History [Zestoretic 20-12.5 mg] Memantine [Namenda] 5 mg PO BID 12/20/18 04/20/19 04/20/19 History Tamsulosin HCl [Flomax] 0.4 mg PO DAILY 12/20/18 04/20/19 04/20/19 History levETIRAcetam [Keppra TAB] 750 mg PO BID #60 tablet 12/24/18 04/20/19 04/20/19 Rx ED Neuro Physical Exam - General Limitations: No Limitations General appearance: alert Suspected Stroke: Yes - NIHSS Assessment Interval: Baseline 1a. Level of Consciousness: alert/keenly responsive 1b. LOC Questions: answers 1 question correctly (stated year 2017) 1c. LOC Commands: performs tasks correctly 2. Best Gaze: normal 3. Visual: no visual loss 4. Facial Palsy: normal symmetrical movement 5b. Motor Arm Right: no drift 5a. Motor Arm Left: no drift 6a. Motor Leg Left: no drift 6b. Motor Leg Right: no drift 7. Limb Ataxia: absent 8. Sensory: normal 9. Best Language: no aphasia 10. Dysarthria: mild/moderate dysarthria 11. Extinction/Inattention: no abnormality Total Score: 2 Stroke Severity: Minor Stroke - Other Other exam information: General: No acute distress Head: Atraumatic Eyes: Normal appearance, Pupils equal and reactive to light, extraocular movements intact ENT: Normal oropharynx Neck: Normal appearance, no posterior or midline tenderness, no meningismus Chest: Clear to auscultation bilaterally, no wheezes, rales, or crackles CV: Regular rate and rhythm Abdomen: soft, nontender, nondistended, no rebound or guarding Back: Nontender Extremity: Normal inspection, full range of motion, nontender Neuro: Alert and oriented 2 (2017), no gross motor or sensory deficit, finger nose finger intake Skin: No rash, redness, warmth ED Course Vital Signs 08/26/19 08/26/19 08/26/19 16:59 17:00 17:15 Temperature 98.5 F Pulse Rate 68 68 Respiratory 17 18 17 Rate Blood Pressure 218/128 Blood Pressure 206/128 [Right] O2 Sat by Pulse 100 100 Oximetry 04/20/19 04/20/19 04/20/19 17:16 17:31 17:45 Temperature Pulse Rate 75 71 72 Respiratory 18 25 H Rate Blood Pressure 206/128 218/128 Blood Pressure [Right] O2 Sat by Pulse 92 92 Oximetry 04/20/19 04/20/19 04/20/19 18:00 18:01 18:15 Temperature Pulse Rate 75 74 79 Respiratory 27 H 17 23 Rate Blood Pressure 185/112 178/109 Blood Pressure 185/132 [Right] O2 Sat by Pulse 90 100 92 Oximetry 04/20/19 04/20/19 04/20/19 18:30 18:45 19:00 Temperature Pulse Rate 80 75 75 Respiratory 17 22 19 Rate Blood Pressure 163/99 160/99 Blood Pressure 183/100 [Right] O2 Sat by Pulse 100 93 91 Oximetry 04/20/19 04/20/19 20:00 20:30 Temperature Pulse Rate 74 69 Respiratory 23 34 H Rate Blood Pressure 161/92 146/87 Blood Pressure [Right] O2 Sat by Pulse 90 Oximetry - Reevaluation(s) Reevaluation #1: 04/20/19 18:[address] patient states his headache has resolved. BP trending downward. Rod samuel ordered - Consultations Consultation #1: 04/20/19 17:26 case d/w neuro, suspect htn emergency no tpa rec sbp decrease to [address] admission - Lab Data Result diagrams: 04/20/19 17:24 04/20/19 17:24 Lab Results 04/20/19 04/20/19 04/20/19 Range/Units 17:24 17:24 17:24 WBC 9.1 (4.5-11.0) K/mm3 RBC 4.64 (3.65-5.03) M/mm3 Hgb 15.1 (11.8-15.2) gm/dl Hct 44.5 (35.5-45.6) % MCV 96 H (84-94) fl MCH 32 (28-32) pg MCHC 34 (32-34) % RDW 13.7 (13.2-15.2) % Plt Count 205 (140-440) K/mm3 Lymph % (Auto) 27.5 (13.4-35.0) % [place] % (Auto) 10.4 H (0.0-7.3) % Eos % (Auto) 1.4 (0.0-4.3) % Baso % (Auto) 0.8 (0.0-1.8) % Lymph # 2.5 (1.2-5.4) K/mm3 [place] # 0.9 H (0.0-0.8) K/mm3 Eos # 0.1 (0.0-0.4) K/mm3 Baso # 0.1 (0.0-0.1) K/mm3 Seg Neutrophils % 59.9 (40.0-70.0) % Seg Neutrophils # 5.4 (1.8-7.7) K/mm3 PT 13.2 (12.2-14.9) Sec. INR 1.03 (0.87-1.13) APTT 28.3 (24.2-36.6) Sec. Thrombin Time (15.1-19.6) Sec. Sodium 143 (137-145) mmol/L Potassium 4.2 (3.6-5.0) mmol/L Chloride 104.0 (98-107) mmol/L Carbon Dioxide 28 (22-30) mmol/L Anion Gap 15 mmol/L BUN 18 (9-20) mg/dL Creatinine 1.0 (0.8-1.5) mg/dL Estimated GFR > 60 ml/min BUN/Creatinine Ratio 18 % Glucose 109 H (75-100) mg/dL POC Glucose (70-105) Calcium 9.9 (8.4-10.2) mg/dL Troponin T (0.00-0.029) ng/mL 04/20/19 04/20/19 04/20/19 Range/Units 17:24 17:24 17:28 WBC (4.5-11.0) K/mm3 RBC (3.65-5.03) M/mm3 Hgb (11.8-15.2) gm/dl Hct (35.5-45.6) % MCV (84-94) fl MCH (28-32) pg MCHC (32-34) % RDW (13.2-15.2) % Plt Count (140-440) K/mm3 Lymph % (Auto) (13.4-35.0) % [place] % (Auto) (0.0-7.3) % Eos % (Auto) (0.0-4.3) % Baso % (Auto) (0.0-1.8) % Lymph # (1.2-5.4) K/mm3 [place] # (0.0-0.8) K/mm3 Eos # (0.0-0.4) K/mm3 Baso # (0.0-0.1) K/mm3 Seg Neutrophils % (40.0-70.0) % Seg Neutrophils # (1.8-7.7) K/mm3 PT (12.2-14.9) Sec. INR (0.87-1.13) APTT (24.2-36.6) Sec. Thrombin Time 16.7 (15.1-19.6) Sec. Sodium (137-145) mmol/L Potassium (3.6-5.0) mmol/L Chloride (98-107) mmol/L Carbon Dioxide (22-30) mmol/L Anion Gap mmol/L BUN (9-20) mg/dL Creatinine (0.8-1.5) mg/dL Estimated GFR ml/min BUN/Creatinine Ratio % Glucose (75-100) mg/dL POC Glucose 97 (70-105) Calcium (8.4-10.2) mg/dL Troponin T < 0.010 (0.00-0.029) ng/mL - EKG Data -: EKG Interpreted by Me (q wave v1,v2) EKG shows normal: sinus rhythm, axis (qrs 30), QRS complexes (qrsd 87), ST-T waves (no setmi) Rate: normal (67) - Radiology Data Radiology results: report reviewed CT head without contrast CLINICAL HISTORY: Cerebrovascular accident FINDINGS: The motion degrades image quality. However, there is mild to moderate cerebral atrophy which correlates with the previous CT of 12/20/2018 and would be most consistent with microvascular angiopathy. There is no clear CT evidence of acute intracranial hemorrhage or significant mass effect. The ventricular system remains appropriate in size and configuration. The visualized paranasal sinuses are clear. All CT scans at this location are performed using the CT dose reduction for [employer] by means of automated exposure control. 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 The findings were called stat to Dr. Cohen in the ER per the code stroke protocol at the time the study was being completed. - Medical Decision Making As per neurologist is not a TPA candidate see Neuro note. Tentative diagnosis in hypertensive emergency. Aspirin provided. Cardene drip initiated. Only deficit is some mild dysarthria. He she will be admitted to the hospital for further workup - Differential Diagnosis cva, tia, ich, migraine, parkinsons, htn encephalopathy Critical Care Time: No Critical care attestation.: If time is entered above; I have spent that time in minutes in the direct care of this critically ill patient, excluding procedure time. ED Disposition Clinical Impression: Hypertensive emergency, Parkinson disease, Dysarthria Disposition: OP ADMIT IP TO THIS HOSP Is pt being admited?: Yes Condition: Stable Time of Disposition: 18:08 (Dr Evangelista/hosp)
--- NOTE | 2019-04-20 17:31 | Emergency Department Report ---
ED Neuro Deficit HPI - General Stated Complaint: HYPERTENSION/STROKE Time Seen by Provider: 04/20/19 17:01 Source: patient, EMS Mode of arrival: Stretcher Limitations: No Limitations - History of Present Illness Initial Comments: [facility] TeleNeurology Consult Services The patient was informed the neurology consult would happen via TeleHealth by way of interactive audio and visual telecommunications and consented to receiving care in this manner for acute stroke protocol. DATE: April 20 2019 Impression: Likely hypertensive emergency stroke less likely. The patient has hypophonia due to his Parkinson's but maybe has some slight intermittent slurring of speech that is very very mild. With headache and no other focal deficit symptoms most consistent with hypertensive emergency rather than acute ischemic stroke although this can't be excluded. Recommend lowering blood pressure to the 180s systolic range and seeing if symptoms resolve. Can give him aspirin in the meantime as long as the noncontrast official read is okay. Do not see any obvious bleed or large territory stroke upon review. Recommended admission with stroke workup and inpatient neurology consultation. Not a tpa candidate due to: Minor nondisabling symptoms markedly elevated blood pressure Symptoms (not) consistent with LVO therefore no role for neuro-intervention Differential Diagnosis: Hypertensive emergency versus CVA 1. Cardioembolic stroke 2. Small vessel disease/lacune 3. Thromboembolic, [id number] mechanism 4. Hypercoagulable state-related infarct 5. Transient ischemic attack 6. Thrombotic mechanism, large artery disease Comments: Last known normal not known symptom awareness is at 3:30 PM patient was unaware of deficit Door time 16:58 [facility] contacted: 16:50 [facility] at bedside: 16:53 NIHSS assessment time: 17:12 Recommendations: -As long as official read on the CT scan is okay recommend starting aspirin -Would reduce blood pressure to proximally 180 systolic unless symptoms completely resolve in order to see if lowering his blood pressure resolved with very trace slurred speech that he has Inpatient neurology consultation Inpatient stroke evaluation as per Neurology/ Internal Medicine Discussed with ED MD Please call with questions --------- CC slurred speech History of Present Illness Patient is a very pleasant 63-year-old gentleman with a history of Parkinson's disease who denies any other health issues. It sounds like his home health aide at 15:30 noticed that his speech was more slow than normal and a little slurred. He does have hypophonia with his Parkinson's and has had similar symptoms in the past but this is worse. He denies any history of hypertension but has had a headache for several days. Blood pressure 218 over 120s in the emergency department. He denies any other focal weakness numbness or tingling. No chest pain or shortness of breath. He does not take any aspirin or other blood thinners. Diagnostic: CT head without contrast does not show any large stroke or intracerebral hemorrhage, however official read is pending Exam: 1a- LOC: Keenly responsive - =0 1b- LOC questions: Answers both questions correctly - 0 1c- LOC commands- Performs both tasks correctly- 0 2- Gaze: Normal; no gaze paresis or gaze deviation - 0 3- Visual John: normal, no Visual field deficit - 0 4- Facial movements: no facial palsy - 0 5- Upper limb motor - no drift -0 6- Lower limb motor - no drift - 0 7- Limb Coordination: absent ataxia - 0 8- Sensory : no sensory loss - 0 9- Language - No aphasia - 0 10- Speech - Caitlin intermittent dysarthria on top of moderate hypophonia=1 11- Neglect / Extinction - none found -0 NIHSS score 1 Medical Decision Making: - Extensive number of diagnosis or management options are considered above. - Extensive amount of complex data reviewed. - High risk of complication and/or morbidity or mortality are associated with differential diagnostic considerations above. - There may be Uncertain outcome and increased probability of prolonged functional impairment or high probability of severe prolonged functional impairment associated with some of these differential diagnosis. Medical Data Reviewed: 1.Data reviewed include clinical labs, radiology, Medical Tests; 2.Tests results discussed w/performing or interpreting physician; 3.Obtaining/reviewing old medical records; 4.Obtaining case history from another source; 5.Independent review of image, tracing or specimen. Patient was informed the Neurology Consult would happen via telehealth (remote video) and consented to receiving care in this manner. -: unknown - Related Data Home Medications: Home Medications Medication Instructions Recorded Confirmed Last Taken Aspirin [Adult Aspirin] 81 mg PO DAILY 12/20/18 12/20/18 Unknown Carbidopa/Levodopa 25-250 [Sinemet 25 - 250 mg PO 4XD 12/20/18 12/20/18 Unknown 25/250] Lisinopril/Hydrochlorothiazide 12.5 - 20 mg PO DAILY 12/20/18 12/20/18 Unknown [Zestoretic 20-12.5 mg] Memantine [Namenda] 5 mg PO BID 12/20/18 12/20/18 Unknown Tamsulosin HCl [Flomax] 0.4 mg PO DAILY 12/20/18 12/20/18 Unknown Previous Rx's Medication Instructions Recorded Last Taken Type levETIRAcetam [Keppra TAB] 750 mg PO BID #60 tablet 12/24/18 Unknown Rx Allergies/Adverse Reactions: Allergies Allergy/AdvReac Type Severity Reaction Status Date / Time No Known Allergies Allergy Unverified 09/18/18 03:03 ED Review of Systems ROS: Stated complaint: HYPERTENSION/STROKE Other details as noted in HPI ED Past Medical Hx - Past Medical History Hx Hypertension: Yes Hx GERD: Yes Hx Seizures: Yes Additional medical history: parkinson. pneumonia - Surgical History Additional Surgical History: Tracheostomy secondary to pneumonia/respiratory failure - Social History Smoking Status: Never Smoker - Medications Home Medications: Home Medications Medication Instructions Recorded Confirmed Last Taken Type Aspirin [Adult Aspirin] 81 mg PO DAILY 12/20/18 12/20/18 Unknown History Carbidopa/Levodopa 25-250 [Sinemet 25 - 250 mg PO 4XD 12/20/18 12/20/18 Unknown History 25/250] Lisinopril/Hydrochlorothiazide 12.5 - 20 mg PO DAILY 12/20/18 12/20/18 Unknown History [Zestoretic 20-12.5 mg] Memantine [Namenda] 5 mg PO BID 12/20/18 12/20/18 Unknown History Tamsulosin HCl [Flomax] 0.4 mg PO DAILY 12/20/18 12/20/18 Unknown History levETIRAcetam [Keppra TAB] 750 mg PO BID #60 tablet 12/24/18 Unknown Rx ED Neuro Physical Exam - General Limitations: No Limitations General appearance: alert Suspected Stroke: Yes - NIHSS Assessment Interval: Baseline 1a. Level of Consciousness: alert/keenly responsive 1b. LOC Questions: answers both correctly 1c. LOC Commands: performs tasks correctly 2. Best Gaze: normal 3. Visual: no visual loss 4. Facial Palsy: normal symmetrical movement 5b. Motor Arm Right: no drift 5a. Motor Arm Left: no drift 6a. Motor Leg Left: no drift 6b. Motor Leg Right: no drift 7. Limb Ataxia: absent 8. Sensory: normal 9. Best Language: no aphasia 10. Dysarthria: mild/moderate dysarthria 11. Extinction/Inattention: no abnormality Total Score: 1 Stroke Severity: Minor Stroke Critical care attestation.: If time is entered above; I have spent that time in minutes in the direct care of this critically ill patient, excluding procedure time. ED Disposition Clinical Impression: Hypertensive emergency Disposition: DC-[id number] OP ADMIT IP TO THIS HOSP Is pt being admited?: Yes Condition: Stable Instructions: Hypertension (ED) Referrals: PRIMARY CARE, [Primary Care Provider] - 3-5 Days
[2019-04-20 17:41] LABS: Basophils # (Auto) 0.1 K/mm3 (0.0-0.1); Basophils % (Auto) 0.8 % (0.0-1.8); Eosinophils # (Auto) 0.1 K/mm3 (0.0-0.4); Eosinophils % (Auto) 1.4 % (0.0-4.3); Hematocrit 44.5 % (35.5-45.6); Hemoglobin 15.1 gm/dl (11.8-15.2); Lymphocytes # (Auto) 2.5 K/mm3 (1.2-5.4); Lymphocytes % (Auto) 27.5 % (13.4-35.0); Mean Corpuscular HGB Conc 34 % (32-34); Mean Corpuscular Volume 96 fl (84-94); Monocytes # (Auto) 0.9 K/mm3 (0.0-0.8); Monocytes % (Auto) 10.4 % (0.0-7.3); Platelet Count 205 K/mm3 (140-440); Red Blood Count 4.64 M/mm3 (3.65-5.03); Red Cell Distribution Width 13.7 % (13.2-15.2)
[2019-04-20 17:42] LABS: INR 1.03 (0.87-1.13)
[2019-04-20 17:43] LABS: Partial Thromboplastin Time 28.3 Sec. (24.2-36.6)
[2019-04-20 17:46] LABS: BUN/Creatinine Ratio 18; Blood Urea Nitrogen 18 mg/dL (9-20); Calcium 9.9 mg/dL (8.4-10.2); Hemolysis Index 22
[2019-04-20] MEDS ORDERED: ASPIRIN PO ONE (17:53)
--- NOTE | 2019-04-20 17:58 | Cat Scan Report ---
CT head without contrast CLINICAL HISTORY: Cerebrovascular accident FINDINGS: The motion degrades image quality. However, there is mild to moderate cerebral atrophy whic h correlates with the previous CT of 12/20/2018 and would be most consistent with microvascular angiop athy. There is no clear CT evidence of acute intracranial hemorrhage or significant mass effect. The ventricular system remains appropriate in size and configuration. The visualized paranasal sinuses ar e clear. All CT scans at this location are performed using the CT dose reduction for ALARA by means o f automated exposure control. 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 The findings were called stat to Dr. Cohen in the ER per the code stroke protocol at the time the stud y was being completed. Signer Name: Joel Wolfe MD Signed: 04/20/2019 5:53 PM Workstation Name: [id number]
[2019-04-20] MEDS ORDERED: CARDENE 50 MG in NACL 0.9% 250ML 230 ML IV SCH (18:00)
[2019-04-20] MEDS ORDERED: ZOFRAN IV PRN (20:20)
[2019-04-20] MEDS ORDERED: SODIUM CHLORIDE FLUSH SYRINGE 10 ML IV PRN ×2 (20:20→20:22)
[2019-04-20] MEDS ORDERED: DILAUDID IV PRN (20:21)
[2019-04-20] MEDS ORDERED: REGLAN IV PRN (20:21)
[2019-04-20] MEDS ORDERED: PERCOCET 5/325 PO PRN (20:21)
[2019-04-20] MEDS ORDERED: NON-FORMULARY (Lisinopril/Hydrochlorothiazide [Zestoretic 20-12.5 Mg] 20 MG) PO SCH (20:30)
[2019-04-20] MEDS ORDERED: NACL 0.9% 1000 ML 1,000 ML IV SCH (21:00)
[2019-04-20] MEDS: TYLENOL PO PRN (21:11)
[2019-04-20] MEDS: NORVASC PO SCH (21:55)
[2019-04-20] MEDS: NAMENDA PO SCH (21:55)
[2019-04-20] MEDS: FLOMAX PO SCH (21:55)
[2019-04-20] MEDS: PEPCID PO SCH (21:56)
[2019-04-20] MEDS: ZESTRIL PO SCH (21:56)
[2019-04-20] MEDS: KEPPRA PO SCH (21:56)
[2019-04-20] MEDS: COREG PO SCH (21:56)
[2019-04-20] MEDS: HCTZ PO SCH (21:56)
[2019-04-20] MEDS ORDERED: NON-FORMULARY (Levetiracetam [Keppra Tab] 750 MG) PO SCH (22:00)
[2019-04-20] MEDS: SODIUM CHLORIDE FLUSH SYRINGE 10 ML IV SCH (22:05)
[2019-04-21 05:29] LABS: Basophils # (Auto) 0.1 K/mm3 (0.0-0.1); Basophils % (Auto) 0.6 % (0.0-1.8); Eosinophils # (Auto) 0.2 K/mm3 (0.0-0.4); Eosinophils % (Auto) 2.3 % (0.0-4.3); Hematocrit 43.2 % (35.5-45.6); Hemoglobin 14.5 gm/dl (11.8-15.2); Lymphocytes # (Auto) 2.4 K/mm3 (1.2-5.4); Lymphocytes % (Auto) 25.5 % (13.4-35.0); Mean Corpuscular HGB Conc 34 % (32-34); Mean Corpuscular Volume 97 fl (84-94); Monocytes # (Auto) 0.9 K/mm3 (0.0-0.8); Monocytes % (Auto) 9.9 % (0.0-7.3); Platelet Count 188 K/mm3 (140-440); Red Blood Count 4.45 M/mm3 (3.65-5.03); Red Cell Distribution Width 13.7 % (13.2-15.2)
[2019-04-21 05:39] LABS: Alanine Aminotransferase 14 units/L (7-56); Albumin 3.8 g/dL (3.9-5); BUN/Creatinine Ratio 20; Blood Urea Nitrogen 16 mg/dL (9-20); Calcium 9.2 mg/dL (8.4-10.2); Chol/HDL Ratio 4.94 %; HDL Cholesterol 36 mg/dL (40-59); Hemolysis Index 14; LDL Cholesterol,Direct 120 mg/dL (50-130)
--- NOTE | 2019-04-21 06:49 | Event Note ---
Date: 04/20/19 See H/p in reports CVA versus TIA Hypertensove emergency
--- NOTE | 2019-04-21 07:35 | History and Physical Report ---
CHIEF COMPLAINT: 1. Slurred speech. 2. High blood pressure. HISTORY OF PRESENT ILLNESS: A 63-year-old with history of hypertension, Parkinson's disease, compliant with his medications, comes in for difficulty speaking but no difficulty in walking. He states that the left lower extremity is slightly weak. The patient has a history of Parkinson's disease for which he takes Sinemet. PAST MEDICAL HISTORY: As mentioned, Parkinson's disease, BPH, hypertension. PAST SURGICAL HISTORY: Tracheostomy secondary to pneumonia with respiratory failure. SOCIAL HISTORY: Does not smoke. FAMILY HISTORY: Hypertension. CURRENT MEDICATIONS: On the chart. REVIEW OF SYSTEMS: Significant for slurred speech and high blood pressure. Otherwise, review of systems negative. A 14-point review of systems done. PHYSICAL EXAMINATION: GENERAL: A young elderly male, cooperative during examination. VITAL SIGNS: Initial blood pressures were in the range of 218/128, 206/128 and 185/112. HEENT: Unremarkable. Pupils equal and reactive. NECK: Supple, no lymphadenopathy, no thyromegaly. LUNGS: Clear to auscultation and percussion. Good air entry. CARDIOVASCULAR: S1, S2 heard. No gallop, no murmur, no rub. Apical impulse in left fifth intercostal space and midclavicular line. ABDOMEN: Soft and benign. No hepatosplenomegaly. No guarding, no rigidity. Hernial orifices are normal. EXTREMITIES: Good pedal pulses. No pedal edema. CENTRAL NERVOUS SYSTEM: Alert and oriented x 4, nonfocal exam. Able to move all 4 extremities. Able to talk. No slurred speech noted. LABORATORY DATA: CT of the head shows some mild to moderate microvascular angiopathy without CT evidence of acute intracranial hemorrhage. Labs, as mentioned, CBC is normal. BMP is normal. Triglycerides 297. ASSESSMENT AND PLAN: 1. Acute cerebrovascular accident versus transient ischemic attack. Cerebrovascular accident workup initiated. MRI/MRA brain, carotid duplex scan and echocardiogram ordered. 2. Parkinsonism. Continue Sinemet. 3. Hypertension. Continue lisinopril. 4. Benign prostatic hypertrophy. Continue tamsulosin. 5. Mild dementia. Continue Namenda 5 mg twice a day. 6. Deep venous thrombosis prophylaxis and gastrointestinal prophylaxis. 7.Hypertriglyceridemia--Add Fenofibrate JOB# [id number] VSM/NTS MTDD
[2019-04-21] MEDS: PEPCID PO SCH ×2 (10:21→22:19)
[2019-04-21] MEDS: FLOMAX PO SCH (10:21)
[2019-04-21] MEDS: COREG PO SCH ×2 (10:21→22:19)
[2019-04-21] MEDS: NAMENDA PO SCH ×2 (10:21→22:20)
[2019-04-21] MEDS: NORVASC PO SCH (10:22)
[2019-04-21] MEDS: ZESTRIL PO SCH (10:22)
[2019-04-21] MEDS: HALFPRIN EC PO SCH (10:22)
[2019-04-21] MEDS: HCTZ PO SCH (10:22)
[2019-04-21] MEDS: SODIUM CHLORIDE FLUSH SYRINGE 10 ML IV SCH ×2 (10:23→22:22)
[2019-04-21] MEDS: KEPPRA PO SCH ×2 (10:24→22:20)
--- NOTE | 2019-04-21 11:08 | Progress Note ---
Assessment and Plan Assessment and plan: Patient is 63 yo man with history hypertension off medications for 6 months, PD and BPH who presented to ED with left sided weakness and slurred speech. Teleneurologist was used was deemed "NOT a tpa candidate due to Minor nondisabling symptoms markedly elevated blood pressure and symptoms (not) consistent with LVO therefore no role for neuro-intervention." Patient blood pressure was 240/120, hence the IV Cardene drip and ICU admission. Left sided weakness and slurred speech, either CVA vs PD vs other: consulted Neurologist, MRI pending, ECHO pending, and Carotid doppler pending Malignant hypertension with Urgency: wean off IV Cardene drip and start oral antihypertensives, low salt diet. Parkinson's Disorder: continue PD medication, await Neurology input BPH: continue Flomax Dementia: on Namenda Disposition: transfer out ICU and pending test results CCT 31 minutes History Interval history: Patient was seen and examined. Follow-up on current diagnosis of Slurred speech. No overnight events reported to me. Patient denies any chest pain, shortness breath, nausea/vomiting or severe headaches. Imaging, nursing note, chart, labs and old chart reviewed. Discussed with patient. Hospitalist Physical - Physical exam Narrative exam: Gen: WDWN, NAD, Awake, Alert, Orientated x 3 HEENT: NCAT, EOMI, PERRL, OP Clear Neck: supple, no adenopathy, no thyromegaly, no JVD CVS/Heart: RRR, normal S1S2, pulses present bilaterally Chest/Lungs: CTA B, Symmetrical chest expansion, good air entry bilaterally GI/Abdomen: soft, NTND, good bowel sounds, no guarding or rebound /Bladder: no suprapubic tenderness, no CVA or paraspinal tenderness Extermity/Skin: no c/c/e, no obvious rash MSK: FROM x 4 Neuro: CN 2-12 grossly intact except speech, no new focal deficits Psych: calm - Constitutional Vitals: Temp Pulse Resp BP Pulse Ox 97.7 F 62 12 126/79 95 04/21/19 08:00 04/21/19 10:22 04/21/19 08:00 04/21/19 10:22 04/21/19 08:00 Results - Labs CBC & Chem 7: 04/21/19 03:55 04/21/19 03:55 Labs: Laboratory Last Values WBC 9.4 K/mm3 (4.5-11.0) 04/21/19 03:55 RBC 4.45 M/mm3 (3.65-5.03) 04/21/19 03:55 Hgb 14.5 gm/dl (11.8-15.2) 04/21/19 03:55 Hct 43.2 % (35.5-45.6) 04/21/19 03:55 MCV 97 fl (84-94) H 04/21/19 03:55 MCH 33 pg (28-32) H 04/21/19 03:55 MCHC 34 % (32-34) 04/21/19 03:55 RDW 13.7 % (13.2-15.2) 04/21/19 03:55 Plt Count 188 K/mm3 (140-440) 04/21/19 03:55 Lymph % (Auto) 25.5 % (13.4-35.0) 04/21/19 03:55 Isabela % (Auto) 9.9 % (0.0-7.3) H 04/21/19 03:55 Eos % (Auto) 2.3 % (0.0-4.3) 04/21/19 03:55 Baso % (Auto) 0.6 % (0.0-1.8) 04/21/19 03:55 Lymph # 2.4 K/mm3 (1.2-5.4) 04/21/19 03:55 Isabela # 0.9 K/mm3 (0.0-0.8) H 04/21/19 03:55 Eos # 0.2 K/mm3 (0.0-0.4) 04/21/19 03:55 Baso # 0.1 K/mm3 (0.0-0.1) 04/21/19 03:55 Seg Neutrophils % 61.7 % (40.0-70.0) 04/21/19 03:55 Seg Neutrophils # 5.8 K/mm3 (1.8-7.7) 04/21/19 03:55 PT 13.2 Sec. (12.2-14.9) 04/20/19 17:24 INR 1.03 (0.87-1.13) 04/20/19 17:24 APTT 28.3 Sec. (24.2-36.6) 04/20/19 17:24 16.7 Sec. (15.1-19.6) 04/20/19 17:24 Sodium 142 mmol/L (137-145) 04/21/19 03:55 Potassium 3.7 mmol/L (3.6-5.0) 04/21/19 03:55 Chloride 104.1 mmol/L (98-107) 04/21/19 03:55 Carbon Dioxide 23 mmol/L (22-30) 04/21/19 03:55 19 mmol/L 04/21/19 03:55 BUN 16 mg/dL (9-20) 04/21/19 03:55 0.8 mg/dL (0.8-1.5) 04/21/19 03:55 Estimated GFR > 60 ml/min 04/21/19 03:55 20 % 04/21/19 03:55 Glucose 93 mg/dL (75-100) 04/21/19 03:55 POC Glucose 97 (70-105) 04/20/19 17:28 5.1 % (4-6) 04/20/19 20:43 Calcium 9.2 mg/dL (8.4-10.2) 04/21/19 03:55 0.20 mg/dL (0.1-1.2) 04/21/19 03:55 AST 14 units/L (5-40) 04/21/19 03:55 ALT 14 units/L (7-56) 04/21/19 03:55 84 units/L (35-129) 04/21/19 03:55 < 0.010 ng/mL (0.00-0.029) 04/20/19 17:24 7.0 g/dL (6.3-8.2) 04/21/19 03:55 3.8 g/dL (3.9-5) L 04/21/19 03:55 1.2 % 04/21/19 03:55 Triglycerides 297 mg/dL (2-149) H 04/21/19 03:55 Cholesterol 178 mg/dL (50-199) 04/21/19 03:55 120 mg/dL (50-130) 04/21/19 03:55 36 mg/dL (40-59) L 04/21/19 03:55 4.94 % 04/21/19 03:55 Active Medications - Current Medications Current Medications: Generic Name Dose Route Start Last Admin Trade Name Freq PRN Reason Stop Dose Admin Acetaminophen 650 mg 04/20/19 20:20 04/20/19 21:11 Tylenol PO 650 mg Q4H PRN Administration Pain MILD(1-3)/Fever >100.5/MORALES Amlodipine Besylate 10 mg 04/20/19 21:00 04/21/19 10:22 Norvasc PO 10 mg QDAY DARCI Administration Aspirin 81 mg 04/21/19 10:00 04/21/19 10:22 Halfprin Ec PO 81 mg DAILY DARCI Administration Atorvastatin Calcium 40 mg 04/20/19 22:00 04/20/19 21:55 Lipitor PO 40 mg QHS DARCI Administration Carvedilol 12.5 mg 04/20/19 22:00 04/21/19 10:21 Coreg PO 12.5 mg BID DARCI Administration Famotidine 20 mg 04/20/19 22:00 04/21/19 10:21 Pepcid PO 20 mg BID DARCI Administration Fenofibrate 145 mg 04/21/19 11:00 Tricor PO QDAY DARCI Hydrochlorothiazide 12.5 mg 04/20/19 21:00 04/21/19 10:22 Hctz PO 12.5 mg QDAY DARCI Administration Hydromorphone HCl 0.5 mg 04/20/19 20:21 Dilaudid IV Q3H PRN Pain , Severe (7-10) Nicardipine HCl 50 mg/ Sodium 250 mls @ 25 mls/hr 04/20/19 18:00 04/20/19 23:28 Chloride IV 0 mg/hr TITR DARCI 0 mls/hr Titration Protocol 5 MG/HR Levetiracetam 750 mg 04/20/19 22:00 04/21/19 10:24 Keppra PO 750 mg BID DARCI Administration Lisinopril 20 mg 04/20/19 21:00 04/21/19 10:22 Zestril PO 20 mg QDAY DARCI Administration Memantine 5 mg 04/20/19 22:00 04/21/19 10:21 Namenda PO 5 mg BID DARCI Administration Metoclopramide HCl 10 mg 04/20/19 20:21 Reglan IV Q6H PRN Nausea And Vomiting Ondansetron HCl 4 mg 04/20/19 20:20 Zofran IV Q8H PRN Nausea And Vomiting Oxycodone/Acetaminophen 1 tab 04/20/19 20:21 Percocet 5/325 PO Q6H PRN Pain, Moderate (4-6) Pneumococcal Polyvalent Vaccine 0.5 ml 04/21/19 12:00 Pneumovax 23 IM 04/21/19 12:01 .ONCE ONE Sodium Chloride 10 ml 04/20/19 22:00 04/21/19 10:23 Sodium Chloride Flush Syringe 10 Ml IV 10 ml BID DARCI Administration Sodium Chloride 10 ml 04/20/19 20:20 Sodium Chloride Flush Syringe 10 Ml IV PRN PRN LINE FLUSH Tamsulosin HCl 0.4 mg 04/20/19 21:00 04/21/19 10:21 Flomax PO 0.4 mg DAILY DARCI Administration Nutrition/Malnutrition Assess - Dietary Evaluation Nutrition/Malnutrition Findings: Nutrition Notes Start: 04/21/19 10:59 Freq: Status: Active Protocol: Document 04/21/19 10:59 LM (Rec: 04/21/19 11:02 LM [id number]) Nutrition Notes Need for Assessment generated from: regulatory product manager,MST Initial or Follow up Brief Note Weight change and time frame Pt stated he gained 11 lb in 2 months Subjective/Other Information RN screen for MST. Pt ate 100% of breakfast this AM. Pt stated he had no weight loss. Pt's UBW is between 245-250 lb . Nutrition Intervention Revisit per MD consult or patient Sign Off request:
--- NOTE | 2019-04-21 11:21 | Vascular Lab Report ---
"DUPLEX DOPPLER ULTRASOUND CAROTID, BILATERAL INDICATION: stroke. FINDINGS: RIGHT CAROTID: Small amount of calcified atherosclerotic plaque. Right ICA peak systolic velocity: 58 cm/sec. Right Vertebral Artery: Antegrade flow. LEFT CAROTID: Small amount of calcified atherosclerotic plaque. Left ICA peak systolic velocity: 76 cm/sec. Left Vertebral Artery: Antegrade flow. IMPRESSION: 1. Right Internal Carotid Artery: Less than 50% diameter stenosis. 2. Left Internal Carotid Artery: Less than 50% diameter stenosis. Velocity criteria are extrapolated from diameter data as defined by the Society of Radiologists [facility] Consensus Conference, Radiology 2003; 229;340-346. Degree of Stenosis (%) || ICA PSV (cm/sec) || Plaque estimate (%) || ICA/CCA PSV Ratio Normal <125 None <2.0 <50 <125 <50 <2.0 50-69 125-230 50 2.0-4.0 70 but less than 100 >230 50 >4.0 Near occlusion High, low, or none visible variable Total occlusion None visible; no lumen N/A Signer Name: Joaquin Santiago MD Signed: 04/21/2019 11:16 AM Workstation Name: [id number]"
[2019-04-21] MEDS: TRICOR PO SCH (11:42)
[2019-04-21] MEDS ORDERED: PNEUMOVAX 23 IM ONE (12:00)
--- NOTE | 2019-04-21 17:03 | Magnetic Resonance Report ---
MR brain wo con INDICATION / CLINICAL INFORMATION: 63 years Male; stroke. TECHNIQUE: Multiplanar, multisequence MR images of the brain were obtained. COMPARISON: CT - 04/20/2019 FINDINGS: BRAIN / INTRACRANIAL CONTENTS: Mild cerebral and cerebellar atrophy. There are [id number] areas of increased signal intensity on FLAIR imaging in the white matter o f the cerebral hemispheres. These are nonspecific findings and may be related to microangiopathy (hyp ertension, diabetes, atherosclerosis), given the patient's age. Otherwise, no acute ischemia, acute hemorrhage, or hydrocephalus. CRANIOCERVICAL JUNCTION: No significant abnormality. VASCULAR FLOW-VOIDS: No significant abnormality. ORBITS: No significant abnormality of visualized orbits. SINUSES / MASTOIDS: Mild to moderate mucosal thickening seen in the ethmoids. ADDITIONAL FINDINGS: None. IMPRESSION: 1. No focal mass, hemorrhage, hydrocephalus, or acute ischemia. Signer Name: Gaston Buitrago MD, III Signed: 04/21/2019 4:58 PM Workstation Name: [id number]
[2019-04-21] MEDS: TYLENOL PO PRN (17:15)
--- NOTE | 2019-04-21 17:22 | Magnetic Resonance Report ---
MR MRA/MRV head wo con INDICATION / CLINICAL INFORMATION: 63 years Male; stroke. TECHNIQUE: 3-D time of flight. NASCET type criteria used to evaluate stenoses. COMPARISON: None available. FINDINGS: INTERNAL CAROTID ARTERIES: No significant narrowing appreciated. VERTEBROBASILAR SYSTEM: No significant narrowing appreciated. DISTAL BRANCHES: Distal branches of the anterior, middle, and posterior cerebral arteries are fairly symmetric in appearance and number. ANEURYSM: There is an infundibulum associated with the origin of the left ophthalmic artery. Small in fundibulum versus very small periophthalmic artery aneurysm suggested on the right, projecting medial ly. CTA of the head may be helpful for further evaluation, if clinically warranted. No other signs of aneurysm appreciated. IMPRESSION: I cannot exclude a very small periopthalmic artery aneurysm on the right - follow-up with CTA of the head, as clinically warranted. Signer Name: Gaston Buitrago MD, III Signed: 04/21/2019 5:18 PM Workstation Name: [id number]
--- NOTE | 2019-04-21 18:20 | Consultation ---
History of Present Illness Consult date: 04/21/19 Reason for consult: cough History of present illness: PULMONARY AND CRITICAL CARE CONSULTATION DR. MARINELLI, THANK YOU FOR ASKING US TO PARTICIPATE IN THE CARE OF THIS PATIENT. 63 yo male with history of of htn and parkinsons. He complains of stroke symptoms since 1-2pm: difficulty speaking. Physical therapist came to home about 2:30p and noticed slurred speech and elevated blood pressure. He reported frontal headache. Blood pressure high in route 240/120 as per ems. Ems reports normal glucose Patient states he has had high blood pressure in the past but has not been on medications for 6 months to a year because his blood pressure has been "okay." He is only taking his Parkinson's medication. Patient has a history of respiratory failure and tracheostomy. Patient complains of cough with productive sputum. Possible aspiration. Ob taining Chest XRAY. Patient has no history of smoking, alcohol or drug abuse. Patient not ; has 3 children. 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 Patient presently resting on room air. O2 saturation 94%. Past History Past Medical History: hypertension, other (parkinsons, BPH) Past Surgical History: Other (tracheostomy) Social history: other (denies drug abuse.). denies: smoking, alcohol abuse Family history: hypertension Medications and Allergies Allergies Allergy/AdvReac Type Severity Reaction Status Date / Time No Known Allergies Allergy Verified 04/20/19 19:35 Home Medications Medication Instructions Recorded Confirmed Last Taken Type Aspirin [Adult Aspirin] 81 mg PO DAILY 12/20/18 04/20/19 04/20/19 History Carbidopa/Levodopa 25-250 [Sinemet 25 - 250 mg PO 4XD 12/20/18 04/20/19 04/20/19 History 25/250] Lisinopril/Hydrochlorothiazide 12.5 - 20 mg PO DAILY 12/20/18 04/20/19 04/20/19 History [Zestoretic 20-12.5 mg] Memantine [Namenda] 5 mg PO BID 12/20/18 04/20/19 04/20/19 History Tamsulosin HCl [Flomax] 0.4 mg PO DAILY 12/20/18 04/20/19 04/20/19 History levETIRAcetam [Keppra TAB] 750 mg PO BID #60 tablet 12/24/18 04/20/19 04/20/19 Rx Active Meds: Active Medications Acetaminophen (Tylenol) 650 mg PO Q4H PRN PRN Reason: Pain MILD(1-3)/Fever >100.5/MORALES Last Admin: 04/21/19 17:15 Dose: 650 mg Documented by: Amlodipine Besylate (Norvasc) 10 mg PO QDAY [facility] Last Admin: 04/21/19 10:22 Dose: 10 mg Documented by: Aspirin (Halfprin Ec) 81 mg PO DAILY [facility] Last Admin: 04/21/19 10:22 Dose: 81 mg Documented by: Atorvastatin Calcium (Lipitor) 40 mg PO QHS [facility] Last Admin: 04/20/19 21:55 Dose: 40 mg Documented by: Carvedilol (Coreg) 12.5 mg PO BID [facility] Last Admin: 04/21/19 10:21 Dose: 12.5 mg Documented by: Famotidine (Pepcid) 20 mg PO BID [facility] Last Admin: 04/21/19 10:21 Dose: 20 mg Documented by: Fenofibrate (Tricor) 145 mg PO QDAY [facility] Last Admin: 04/21/19 11:42 Dose: 145 mg Documented by: Hydrochlorothiazide (Hctz) 12.5 mg PO QDAY [facility] Last Admin: 04/21/19 10:22 Dose: 12.5 mg Documented by: Hydromorphone HCl (Dilaudid) 0.5 mg IV Q3H PRN PRN Reason: Pain , Severe (7-10) Levetiracetam (Keppra) 750 mg PO BID [facility] Last Admin: 04/21/19 10:24 Dose: 750 mg Documented by: Lisinopril (Zestril) 20 mg PO QDAY [facility] Last Admin: 04/21/19 10:22 Dose: 20 mg Documented by: Memantine (Namenda) 5 mg PO BID [facility] Metoclopramide HCl (Reglan) 10 mg IV Q6H PRN PRN Reason: Nausea And Vomiting Ondansetron HCl (Zofran) 4 mg IV Q8H PRN PRN Reason: Nausea And Vomiting Oxycodone/Acetaminophen (Percocet 5/325) 1 tab PO Q6H PRN PRN Reason: Pain, Moderate (4-6) Pneumococcal Polyvalent Vaccine (Pneumovax 23) 0.5 ml IM .ONCE ONE Stop: 04/22/19 12:01 Sodium Chloride (Sodium Chloride Flush Syringe 10 Ml) 10 ml IV BID [facility] Last Admin: 04/21/19 10:23 Dose: 10 ml Documented by: Sodium Chloride (Sodium Chloride Flush Syringe 10 Ml) 10 ml IV PRN PRN PRN Reason: LINE FLUSH Tamsulosin HCl (Flomax) 0.4 mg PO DAILY [facility] Last Admin: 04/21/19 10:21 Dose: 0.4 mg Documented by: Review of Systems All systems: negative Physical Examination Vital signs: Vital Signs Temp Pulse Resp BP Pulse Ox 98.5 F 68 17 218/128 100 04/20/19 16:59 04/20/19 16:59 04/20/19 16:59 04/20/19 16:59 04/20/19 16:59 General appearance: no acute distress, alert Eyes: non-icteric ENT: oropharynx moist Neck: supple, other (history of tracheostomy ) Effort: normal Ascultation: Bilateral: diminished breath sounds Cardiovascular: regular rate and rhythm Gastrointestinal: normoactive bowel sounds Integumentary: normal Extremities: no cyanosis unable to assess depressed Results - Laboratory Findings CBC and BMP: 04/21/19 03:55 04/21/19 03:55 PT/INR, D-dimer PT 13.2 Sec. (12.2-14.9) 04/20/19 17:24 INR 1.03 (0.87-1.13) 04/20/19 17:24 Abnormal lab findings: Abnormal Labs 04/20/19 04/20/19 04/21/19 17:24 17:24 03:55 MCV 96 H 97 H MCH 33 H [place] % (Auto) 10.4 H 9.9 H [place] # 0.9 H 0.9 H Glucose 109 H Albumin Triglycerides HDL Cholesterol 04/21/19 03:55 MCV MCH [place] % (Auto) [place] # Glucose Albumin 3.8 L Triglycerides 297 H HDL Cholesterol 36 L Assessment and Plan 63 yo male with history of of htn and parkinsons. He complains of stroke symptoms since 1-2pm: difficulty speaking. Physical therapist came to home about 2:30p and noticed slurred speech and elevated blood pressure. He reported frontal headache. Blood pressure high in route 240/120 as per ems. Ems reports normal glucose Patient states he has had high blood pressure in the past but has not been on medications for 6 months to a year because his blood pressure has been "okay." He is only taking his Parkinson's medication. Patient has a history of respiratory failure and tracheostomy. Patient complains of cough with productive sputum. Possible aspiration. Obtaining Chest XRAY. Patient has no history of smoking, alcohol or drug abuse. Patient not ; has 3 children. 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 Patient presently resting on room air. O2 saturation 94%. - Patient Problems (1) Aspiration into airway Current Visit: Yes Status: Acute Plan to address problem: Obtaining chest xray (2) Hypertensive emergency Current Visit: Yes Status: Acute Plan to address problem: Management as per primary care. (3) Parkinson disease Current Visit: Yes Status: Acute Plan to address problem: Management as per primary care and neurology.
--- NOTE | 2019-04-21 21:52 | Consultation ---
History of Present Illness Consult date: 04/21/19 Reason for Consult: slurred speech Chief complaint: slurred speech History of present illness: Patient is 63-year-old man with a history of hypertension, Parkinson's disease, BPH, cognitive impairment. Patient presented to the ER yesterday with symptoms of mild slurred speech and left leg weakness. On admission, he was noted to have elevated blood pressure of 240/120. The patient was assessed by telestroke, and was not felt to be a TPA candidate due to minor symptoms. Patient has had an improvement in slurred speech and left sided weakness. He states that he has been noncompliant with antihypertensive medications for 6-12 months, as he thought that his blood pressure was otherwise normal. He has been compliant with Parkinson's medications. Past History Past Medical History: hypertension, other (parkinsons, BPH) Past Surgical History: Other (tracheostomy) Social history: other (denies drug abuse.). denies: smoking, alcohol abuse Family history: hypertension Medications and Allergies Allergies Allergy/AdvReac Type Severity Reaction Status Date / Time No Known Allergies Allergy Verified 04/20/19 19:35 Home Medications Medication Instructions Recorded Confirmed Last Taken Type Aspirin [Adult Aspirin] 81 mg PO DAILY 12/20/18 04/20/19 04/20/19 History Carbidopa/Levodopa 25-250 [Sinemet 25 - 250 mg PO 4XD 12/20/18 04/20/19 04/20/19 History 25/250] Lisinopril/Hydrochlorothiazide 12.5 - 20 mg PO DAILY 12/20/18 04/20/19 04/20/19 History [Zestoretic 20-12.5 mg] Memantine [Namenda] 5 mg PO BID 12/20/18 04/20/19 04/20/19 History Tamsulosin HCl [Flomax] 0.4 mg PO DAILY 12/20/18 04/20/19 04/20/19 History levETIRAcetam [Keppra TAB] 750 mg PO BID #60 tablet 12/24/18 04/20/19 04/20/19 Rx Active Meds: Active Medications Acetaminophen (Tylenol) 650 mg PO Q4H PRN PRN Reason: Pain MILD(1-3)/Fever >100.5/MORALES Last Admin: 04/21/19 17:15 Dose: 650 mg Documented by: Amlodipine Besylate (Norvasc) 10 mg PO QDAY [facility] Last Admin: 04/21/19 10:22 Dose: 10 mg Documented by: Aspirin (Halfprin Ec) 81 mg PO DAILY [facility] Last Admin: 04/21/19 10:22 Dose: 81 mg Documented by: Atorvastatin Calcium (Lipitor) 40 mg PO QHS [facility] Last Admin: 04/20/19 21:55 Dose: 40 mg Documented by: Carvedilol (Coreg) 12.5 mg PO BID [facility] Last Admin: 04/21/19 10:21 Dose: 12.5 mg Documented by: Famotidine (Pepcid) 20 mg PO BID [facility] Last Admin: 04/21/19 10:21 Dose: 20 mg Documented by: Fenofibrate (Tricor) 145 mg PO QDAY [facility] Last Admin: 04/21/19 11:42 Dose: 145 mg Documented by: Hydrochlorothiazide (Hctz) 12.5 mg PO QDAY [facility] Last Admin: 04/21/19 10:22 Dose: 12.5 mg Documented by: Hydromorphone HCl (Dilaudid) 0.5 mg IV Q3H PRN PRN Reason: Pain , Severe (7-10) Levetiracetam (Keppra) 750 mg PO BID [facility] Last Admin: 04/21/19 10:24 Dose: 750 mg Documented by: Lisinopril (Zestril) 20 mg PO QDAY [facility] Last Admin: 04/21/19 10:22 Dose: 20 mg Documented by: Memantine (Namenda) 5 mg PO BID [facility] Metoclopramide HCl (Reglan) 10 mg IV Q6H PRN PRN Reason: Nausea And Vomiting Ondansetron HCl (Zofran) 4 mg IV Q8H PRN PRN Reason: Nausea And Vomiting Oxycodone/Acetaminophen (Percocet 5/325) 1 tab PO Q6H PRN PRN Reason: Pain, Moderate (4-6) Pneumococcal Polyvalent Vaccine (Pneumovax 23) 0.5 ml IM .ONCE ONE Stop: 04/22/19 12:01 Sodium Chloride (Sodium Chloride Flush Syringe 10 Ml) 10 ml IV BID [facility] Last Admin: 04/21/19 10:23 Dose: 10 ml Documented by: Sodium Chloride (Sodium Chloride Flush Syringe 10 Ml) 10 ml IV PRN PRN PRN Reason: LINE FLUSH Tamsulosin HCl (Flomax) 0.4 mg PO DAILY [facility] Last Admin: 04/21/19 10:21 Dose: 0.4 mg Documented by: Review of Systems All systems: negative Neurological: weakness, change in speech Physical Examination - Vital Signs Vital Signs: Vital Signs Temp Pulse Resp BP Pulse Ox 98.5 F 68 17 218/128 100 04/20/19 16:59 04/20/19 16:59 04/20/19 16:59 04/20/19 16:59 04/20/19 16:59 - Constitutional General appearance: comfortable - EENT EENT: Present: ATNC, PERRL, mucous membranes moist, hearing intact, vision intact - Respiratory Respiratory: Present: chest non-tender, lungs clear, normal breath sounds - Cardiovascular Cardiovascular: Present: regular rate, normal S1, normal S2 Extremities: Present: no peripheral edema bilatateraly, no clubbing, cyanosis, no inflammation - Gastrointestinal Gastrointestinal: Present: normoactive bowel sounds, soft, non-tender - Integumentary Integumentary: Present: normal - Neurologic Cranial nerve examination: PERRL, EOMI, VFF, V1/V2/V3 grossly intact, face symmetric, tongue midline Speech examination: intact, other (noted to have hypophonia) Detailed motor examination: full strength in all ad Motor examination - right side: 5/5: biceps, triceps, wrist flexion, wrist extension, photo tube assembler, hip flexors, knee extensors, dorsiflexion, toe extension (EHL), plantarflexion Motor examination - left side: 5/5: biceps, triceps, wrist flexion, wrist extension, photo tube assembler, hip flexors, knee extensors, dorsiflexion, toe extension (EHL), plantarflexion Detailed sensory examination: intact, light touch Reflex and gait examination: other (noted to have bradykinesia and cogwheel rigidity.) Cerebellar examination: other (b/l intact to FTN and HTS) - Musculoskeletal Musculoskeletal: Present: no fluid collection, no pain - Psychiatric Psychiatric: Present: mood/affect appropriate - Level of Consciousness 1a. Level of Consciousness: alert/keenly responsive - LOC Questions 1b. LOC Questions: answers both correctly - LOC Command 1c. LOC Commands: performs tasks correctly - Best Gaze 2. Best Gaze: normal - Visual 3. Visual: no visual loss - Facial Palsy 4. Facial Palsy: normal symmetrical movement - Motor Arm 5a. Motor Arm Left: no drift 5b. Motor Arm Right: no drift - Motor Leg 6a. Motor Leg Left: no drift 6b. Motor Leg Right: no drift - Limb Ataxia 7. Limb Ataxia: absent - Sensory 8. Sensory: normal - Best Language 9. Best Language: no aphasia - Dysarthria 10. Dysarthria: normal - Extinction and Inattention 11. Extinction/Inattention: no abnormality - Scoring Total Score: 0 Stroke Severity: No Stroke Symptoms Results - Laboratory Findings CBC and BMP: 04/21/19 03:55 04/21/19 03:55 Abnormal Lab Findings: Abnormal Labs 04/20/19 04/20/19 04/21/19 17:24 17:24 03:55 MCV 96 H 97 H MCH 33 H [place] % (Auto) 10.4 H 9.9 H [place] # 0.9 H 0.9 H Glucose 109 H Albumin Triglycerides HDL Cholesterol 04/21/19 03:55 MCV MCH [place] % (Auto) [place] # Glucose Albumin 3.8 L Triglycerides 297 H HDL Cholesterol 36 L Assessment and Plan Patient is 63-year-old man with a history of hypertension, Parkinson's disease, BPH, cognitive impairment, who p/w mild slurred speech and left leg weakness. According the patient's clinical findings, it is likely that his symptoms were due to hypertensive urgency, as his blood pressure was significantly elevated on admission. Notably, patient's symptoms have resolved now that blood pressure has normalized. Plan: 1. Hypertensive urgency: MRI did not reveal any evidence of an acute ischemic stroke Echocardiogram: EF 50%, left atrium mildly dilated. - Carotid ultrasound: No evidence of significant stenosis. Patient's symptoms have notably resolved now that blood pressures normalized, indicating that etiology of symptoms was hypertensive urgency. - Recommend target normotension. 2. Parkinsons disease: -Cont. home dose of sinemet - Thank you for allowing me to take part in the care of this patient. Weill sign off, as all necessary events investigations have been completed, and symptoms have now resolved. Please call with any questions. Rikki Atwood MD Neurology
[2019-04-22] MEDS: TYLENOL PO PRN (08:31)
--- NOTE | 2019-04-22 10:20 | XRay Report ---
CHEST 2 VIEWS INDICATION / CLINICAL INFORMATION: Possible aspiration. Stroke. COMPARISON: 09/18/2018. FINDINGS: SUPPORT DEVICES: None. HEART / MEDIASTINUM: The heart size is borderline with a left ventricular configuration. Pulmonary va sculature is normal. The aorta is normal in caliber. LUNGS / PLEURA: No significant pulmonary or pleural abnormality. No pneumothorax. ADDITIONAL FINDINGS: No significant additional findings. IMPRESSION: No acute abnormality. No evidence of aspiration pneumonia. Signer Name: Paul Estrella MD Signed: 04/22/2019 10:15 AM Workstation Name: [id number]
[2019-04-22] MEDS: COREG PO SCH ×2 (10:50→22:26)
[2019-04-22] MEDS: FLOMAX PO SCH (10:50)
[2019-04-22] MEDS: KEPPRA PO SCH ×2 (10:50→22:28)
[2019-04-22] MEDS: HCTZ PO SCH (10:50)
[2019-04-22] MEDS: TRICOR PO SCH (10:51)
[2019-04-22] MEDS: HALFPRIN EC PO SCH (10:51)
[2019-04-22] MEDS: ZESTRIL PO SCH (10:51)
[2019-04-22] MEDS: PEPCID PO SCH ×2 (10:51→22:28)
[2019-04-22] MEDS: NORVASC PO SCH (10:51)
[2019-04-22] MEDS: SODIUM CHLORIDE FLUSH SYRINGE 10 ML IV SCH (10:51)
[2019-04-22 11:01] LABS: Hemoglobin 15.6 gm/dl (11.8-15.2); Mean Corpuscular HGB Conc 33 % (32-34); Mean Corpuscular Volume 97 fl (84-94); Platelet Count 211 K/mm3 (140-440); Red Blood Count 4.85 M/mm3 (3.65-5.03); Red Cell Distribution Width 14.1 % (13.2-15.2)
--- NOTE | 2019-04-22 11:07 | Progress Note ---
Assessment and Plan Patient alert, awake. Resting on room air. O2 saturation 93%. No complaint of chest pain, shortness of breath or cough. Chest xray reported no evidence of aspiration pneumonia. - Patient Problems (1) Aspiration into airway Current Visit: Yes Status: Acute Plan to address problem: Chest xray reported no evidence of aspiration pneumonia. (2) Hypertensive emergency Current Visit: Yes Status: Acute Plan to address problem: Management as per primary care. (3) Parkinson disease Current Visit: Yes Status: Acute Plan to address problem: Management as per primary care and neurology. Subjective Date of service: 04/22/19 Interval history: Patient alert, awake. Resting on room air. O2 saturation 93%. No complaint of chest pain, shortness of breath or cough. Chest xray reported no evidence of aspiration pneumonia. Objective Vital Signs - 12hr 04/22/19 04/22/19 04/22/19 05:08 05:12 08:00 Temperature 98.9 F Pulse Rate 56 L 59 L 57 L Respiratory 16 Rate Blood Pressure 104/64 O2 Sat by Pulse 96 Oximetry 04/22/19 04/22/19 04/22/19 10:39 10:50 10:51 Temperature 98.1 F Pulse Rate 62 62 62 Respiratory 18 Rate Blood Pressure 125/74 125/74 O2 Sat by Pulse 93 Oximetry Constitutional: no acute distress, alert Eyes: non-icteric ENT: oropharynx moist Neck: supple, other (history of tracheostomy ) Effort: normal Ascultation: Bilateral: diminished breath sounds Cardiovascular: regular rate and rhythm Gastrointestinal: normoactive bowel sounds, soft, non-tender Integumentary: normal Extremities: no cyanosis Neurologic: unable to assess Psychiatric: depressed CBC and BMP: 04/22/19 09:52 04/22/19 09:52 ABG, PT/INR, D-dimer: PT/INR, D-dimer PT 13.2 Sec. (12.2-14.9) 04/20/19 17:24 INR 1.03 (0.87-1.13) 04/20/19 17:24 Abnormal lab findings: Abnormal Labs 04/20/19 04/20/19 04/21/19 17:24 17:24 03:55 Hgb Hct MCV 96 H 97 H MCH 33 H [place] % (Auto) 10.4 H 9.9 H [place] # 0.9 H 0.9 H Glucose 109 H Albumin Triglycerides HDL Cholesterol 04/21/19 04/22/19 03:55 09:52 Hgb 15.6 H Hct 47.0 H MCV 97 H MCH [place] % (Auto) [place] # Glucose Albumin 3.8 L Triglycerides 297 H HDL Cholesterol 36 L Chest x-ray: report reviewed (NO ACUTE ABNORMALITY. NO EVIDENCE OF ASPIRATION PNEUMONIA.), image reviewed
[2019-04-22 11:14] LABS: BUN/Creatinine Ratio 18; Blood Urea Nitrogen 18 mg/dL (9-20); Calcium 9.7 mg/dL (8.4-10.2); Hemolysis Index 24
[2019-04-22] MEDS ORDERED: PNEUMOVAX 23 IM ONE (12:00)
[2019-04-22] MEDS: NAMENDA PO SCH ×2 (12:16)
--- NOTE | 2019-04-22 14:21 | Progress Note ---
Assessment and Plan Assessment and plan: Patient is 63 yo man with history hypertension off medications for 6 months, ?PD and BPH who presented to ED with left sided weakness and slurred speech. Teleneurologist was used was deemed "NOT a tpa candidate due to Minor nondisabling symptoms markedly elevated blood pressure and symptoms (not) consistent with LVO therefore no role for neuro-intervention." Patient blood pressure was 240/120, hence the IV Cardene drip and ICU admission. Left sided weakness and slurred speech due to Malignant Hypertension: d/w Neurologist, input noted MRI negative, 2D ECHO unremarkable, eF 50%, and Carotid doppler unremarkable but Brain MRA did mention ?aneurysm and recommended CTA brain Malignant hypertension with Urgency: wean off IV Cardene drip and start oral antihypertensives, low salt diet. Parkinson's Disorder: Sinemet new onset Dyslipidemia: statin BPH: continue Flomax Dementia: on Namenda Disposition: pending CTA brain results to rule out Aneurysm. History Interval history: Patient was seen and examined. Follow-up on current diagnosis of Slurred speech. No overnight events reported to me. Patient denies any chest pain, shortness breath, nausea/vomiting or severe headaches. Imaging, nursing note, chart, labs and old chart reviewed. Discussed with patient. Hospitalist Physical - Physical exam Narrative exam: Gen: WDWN, NAD, Awake, Alert, Orientated x 3 HEENT: NCAT, EOMI, PERRL, OP Clear Neck: supple, no adenopathy, no thyromegaly, no JVD CVS/Heart: RRR, normal S1S2, pulses present bilaterally Chest/Lungs: CTA B, Symmetrical chest expansion, good air entry bilaterally GI/Abdomen: soft, NTND, good bowel sounds, no guarding or rebound /Bladder: no suprapubic tenderness, no CVA or paraspinal tenderness Extermity/Skin: no c/c/e, no obvious rash MSK: FROM x 4 Neuro: CN 2-12 grossly intact except speech, no new focal deficits Psych: calm - Constitutional Vitals: Temp Pulse Resp BP Pulse Ox 98.1 F 62 18 125/74 93 04/22/19 10:39 04/22/19 10:51 04/22/19 10:39 04/22/19 10:51 04/22/19 10:39 Results - Labs CBC & Chem 7: 04/22/19 09:52 08/28/19 09:52 Labs: Laboratory Last Values WBC 9.9 K/mm3 (4.5-11.0) 04/22/19 09:52 RBC 4.85 M/mm3 (3.65-5.03) 04/22/19 09:52 Hgb 15.6 gm/dl (11.8-15.2) H 04/22/19 09:52 Hct 47.0 % (35.5-45.6) H 04/22/19 09:52 MCV 97 fl (84-94) H 04/22/19 09:52 MCH 32 pg (28-32) 04/22/19 09:52 MCHC 33 % (32-34) 04/22/19 09:52 RDW 14.1 % (13.2-15.2) 04/22/19 09:52 Plt Count 211 K/mm3 (140-440) 04/22/19 09:52 Lymph % (Auto) 25.5 % (13.4-35.0) 04/21/19 03:55 [place] % (Auto) 9.9 % (0.0-7.3) H 04/21/19 03:55 Eos % (Auto) 2.3 % (0.0-4.3) 04/21/19 03:55 Baso % (Auto) 0.6 % (0.0-1.8) 04/21/19 03:55 Lymph # 2.4 K/mm3 (1.2-5.4) 04/21/19 03:55 [place] # 0.9 K/mm3 (0.0-0.8) H 04/21/19 03:55 Eos # 0.2 K/mm3 (0.0-0.4) 04/21/19 03:55 Baso # 0.1 K/mm3 (0.0-0.1) 04/21/19 03:55 Seg Neutrophils % 61.7 % (40.0-70.0) 04/21/19 03:55 Seg Neutrophils # 5.8 K/mm3 (1.8-7.7) 04/21/19 03:55 PT 13.2 Sec. (12.2-14.9) 04/20/19 17:24 INR 1.03 (0.87-1.13) 04/20/19 17:24 APTT 28.3 Sec. (24.2-36.6) 04/20/19 17:24 16.7 Sec. (15.1-19.6) 04/20/19 17:24 Sodium 142 mmol/L (137-145) 04/22/19 09:52 Potassium 4.3 mmol/L (3.6-5.0) 04/22/19 09:52 Chloride 103.5 mmol/L (98-107) 04/22/19 09:52 Carbon Dioxide 24 mmol/L (22-30) 04/22/19 09:52 19 mmol/L 04/22/19 09:52 BUN 18 mg/dL (9-20) 04/22/19 09:52 1.0 mg/dL (0.8-1.5) 04/22/19 09:52 Estimated GFR > 60 ml/min 04/22/19 09:52 18 % 04/22/19 09:52 Glucose 129 mg/dL (75-100) H 04/22/19 09:52 POC Glucose 84 (70-105) 04/22/19 08:04 5.1 % (4-6) 04/20/19 20:43 Calcium 9.7 mg/dL (8.4-10.2) 04/22/19 09:52 0.20 mg/dL (0.1-1.2) 04/21/19 03:55 AST 14 units/L (5-40) 04/21/19 03:55 ALT 14 units/L (7-56) 04/21/19 03:55 84 units/L (35-129) 04/21/19 03:55 < 0.010 ng/mL (0.00-0.029) 04/20/19 17:24 7.0 g/dL (6.3-8.2) 04/21/19 03:55 3.8 g/dL (3.9-5) L 04/21/19 03:55 1.2 % 04/21/19 03:55 Triglycerides 297 mg/dL (2-149) H 04/21/19 03:55 Cholesterol 178 mg/dL (50-199) 04/21/19 03:55 120 mg/dL (50-130) 04/21/19 03:55 36 mg/dL (40-59) L 04/21/19 03:55 4.94 % 04/21/19 03:55 Active Medications - Current Medications Current Medications: Generic Name Dose Route Start Last Admin Trade Name Freq PRN Reason Stop Dose Admin Acetaminophen 650 mg 04/20/19 20:20 04/22/19 08:31 Tylenol PO 650 mg Q4H PRN Administration Pain MILD(1-3)/Fever >100.5/MORALES Amlodipine Besylate 10 mg 04/20/19 21:00 04/22/19 10:51 Norvasc PO 10 mg QDAY [facility] Administration Aspirin 81 mg 04/21/19 10:00 04/22/19 10:51 Halfprin Ec PO 81 mg DAILY [facility] Administration Atorvastatin Calcium 40 mg 04/20/19 22:00 04/21/19 22:19 Lipitor PO 40 mg QHS [facility] Administration Carvedilol 12.5 mg 04/20/19 22:00 04/22/19 10:50 Coreg PO 12.5 mg BID [facility] Administration Famotidine 20 mg 04/20/19 22:00 04/22/19 10:51 Pepcid PO 20 mg BID [facility] Administration Fenofibrate 145 mg 04/21/19 11:00 04/22/19 10:51 Tricor PO 145 mg QDAY [facility] Administration Hydrochlorothiazide 12.5 mg 04/20/19 21:00 04/22/19 10:50 Hctz PO 12.5 mg QDAY [facility] Administration Hydromorphone HCl 0.5 mg 04/20/19 20:21 Dilaudid IV Q3H PRN Pain , Severe (7-10) Levetiracetam 750 mg 04/20/19 22:00 04/22/19 10:50 Keppra PO 750 mg BID [facility] Administration Lisinopril 20 mg 04/20/19 21:00 04/22/19 10:51 Zestril PO 20 mg QDAY [facility] Administration Memantine 5 mg 04/22/19 11:30 04/22/19 12:16 Namenda PO 5 mg BID [facility] Administration Metoclopramide HCl 10 mg 04/20/19 20:21 Reglan IV Q6H PRN Nausea And Vomiting Ondansetron HCl 4 mg 04/20/19 20:20 Zofran IV Q8H PRN Nausea And Vomiting Oxycodone/Acetaminophen 1 tab 04/20/19 20:21 Percocet 5/325 PO Q6H PRN Pain, Moderate (4-6) Sodium Chloride 10 ml 04/20/19 22:00 04/22/19 10:51 Sodium Chloride Flush Syringe 10 Ml IV 10 ml BID [facility] Administration Sodium Chloride 10 ml 04/20/19 20:20 Sodium Chloride Flush Syringe 10 Ml IV PRN PRN LINE FLUSH Tamsulosin HCl 0.4 mg 04/20/19 21:00 04/22/19 10:50 Flomax PO 0.4 mg DAILY [facility] Administration Nutrition/Malnutrition Assess - Dietary Evaluation Nutrition/Malnutrition Findings: Nutrition Notes Start: 04/21/19 10:59 Freq: Status: Active Protocol: Document 04/21/19 10:59 LM (Rec: 04/21/19 11:02 LM [id number]) Nutrition Notes Need for Assessment generated from: mushroom spawn maker,MST Initial or Follow up Brief Note Weight change and time frame Pt stated he gained 11 lb in 2 months Subjective/Other Information RN screen for MST. Pt ate 100% of breakfast this AM. Pt stated he had no weight loss. Pt's UBW is between 245-250 lb . Nutrition Intervention Revisit per MD consult or patient Sign Off request:
[2019-04-22] MEDS: SINEMET PO SCH ×2 (20:04→22:29)
--- NOTE | 2019-04-22 21:06 | Cat Scan Report ---
CTA head with and without IV contrast. CLINICAL HISTORY: Aneurysm Technique: Multiple contiguous postcontrast CT images of the head were obtained at 0.63 mm intervals. 3 plane MIP reconstructions were obtained. Precontrast localizing images were also performed. CT scan s at this location are performed using the CT dose reduction for ALARA by means of automated exposure control. FINDINGS: On the earlier MRA head, there was concern for a small right periophthalmic aneurysm. There is no clear CT evidence of aneurysm involving the internal carotid arteries on the current CTA. The findings on MRA appear to represent an infundibulum exacerbated by the degree of motion artifact at. There is mild calcification involving the distal ICAs without significant stenosis by NASCET criteria . There is a focus of calcification involving the left vertebral artery at the craniocervical junction with mild stenosis. Otherwise, the vertebral basilar system is unremarkable. There is no significant focal stenosis involving the proximal anterior or middle cerebral artery branches. The dural venous s inuses opacify with contrast. IMPRESSION: There is no CTA evidence of intracranial aneurysm. The findings on the earlier MRA appear to represen t infundibulum of the right ophthalmic artery exacerbated by the degree of motion. The study was specified as stat and dictated immediately once completed. Correlation would be needed regarding emergent presentation. No acute blood was seen on the earlier CT of 04/21/2019. There is focus of calcification involving the left vertebral artery with mild stenosis as described. There is mild calcification involving the distal internal carotid arteries without significant stenos is. Signer Name: Joel Wolfe MD Signed: 04/22/2019 9:02 PM Workstation Name: [id number]
--- NOTE | 2019-04-23 08:14 | Cat Scan Report ---
CTA NECK WITH CONTRAST HISTORY: Intracranial aneurysm. Recent stroke. COMPARISON: None. TECHNIQUE: Routine CTA of the neck is performed. 3-D/MIP reformats were postprocessed. Percentage st enosis is determined by direct quantitative measurements of diseased internal carotid artery diameter compared with normal distal internal carotid artery reference segments or by criteria similar to [place] CET where applicable. All CT scans at this location are performed using CT dose reduction for ALARA b y means of automated exposure control. CONTRAST: 100 ml of Omnipaque 350 FINDINGS: Aortic arch: No significant abnormality. Cervical vertebral arteries: There is moderate stenosis of the origin of the right vertebral artery f rom the right subclavian artery about 50%, which is potentially flow-limiting. There is also mild radha nosis of the origin of the left vertebral artery from left subclavian artery of about 20-30%. No casey tional significant stenosis is seen in the remainder of the cervical vertebral arteries. Common carotid arteries: No significant abnormality. Cervical internal carotid arteries: There is mild atherosclerotic plaque in both carotid bulbs withou t any significant stenosis. There is no significant stenosis in the remainder of the cervical interna l carotid arteries. Additional findings: There is high-grade flow-limiting stenosis of the proximal right external caroti d artery of about 80-90%. There are no acute findings in the remaining imaged soft tissues. IMPRESSION: 1. Mild atherosclerotic calcification in both carotid bulbs without significant stenosis of the inter nal carotid arteries in the neck. 2. Possibly flow-limiting stenosis of about 50% of the origin of the right vertebral artery from the right subclavian artery. Mild nonflow limiting stenosis of the origin of the left vertebral artery fr om the left subclavian artery. 3. High-grade 80-90% stenosis of the proximal right external carotid artery of about 80-90%. Signer Name: Matheus Leigh MD Signed: 04/23/2019 8:10 AM Workstation Name: [id number]
--- NOTE | 2019-04-23 10:26 | Progress Note ---
Assessment and Plan (1) Aspiration into airway Current Visit: Yes Status: Acute Plan to address problem: Chest xray reported no evidence of aspiration pneumonia. Aspiration precautions (2) Hypertensive emergency Current Visit: Yes Status: Acute Plan to address problem: Blood pressure control (3) Parkinson disease Current Visit: Yes Status: Acute Plan to address problem: Falls precautions Chronic Parkinson's medications Discharge planning Subjective Date of service: 04/23/19 Interval history: Patient is seen today for: ASPIRATION RISK; HYPERTENSIVE URGENCY; Seen and examined at bedside; 24hour events reviewed; nursing and respiratory care staff consulted; no adverse overnight events reported to me; Vitals, labs, medications, chart and imaging reviewed. Denies any chest pain, no shortness of breath, no fever or chills. No cough Objective Vital Signs - 12hr 04/22/19 04/23/19 22:26 05:15 Temperature 98.1 F Pulse Rate 58 L 59 L Respiratory 16 Rate Blood Pressure 107/54 98/54 O2 Sat by Pulse 95 Oximetry Constitutional: no acute distress, alert Eyes: non-icteric ENT: oropharynx moist Neck: supple, other (tracheostomy scar) Effort: normal Ascultation: Bilateral: diminished breath sounds Cardiovascular: regular rate and rhythm Gastrointestinal: normoactive bowel sounds, soft, non-tender Integumentary: normal Extremities: no cyanosis Neurologic: unable to assess Psychiatric: depressed CBC and BMP: 04/22/19 09:52 04/22/19 09:52 ABG, PT/INR, D-dimer: PT/INR, D-dimer PT 13.2 Sec. (12.2-14.9) 04/20/19 17:24 INR 1.03 (0.87-1.13) 04/20/19 17:24 Abnormal lab findings: Abnormal Labs 04/20/19 04/20/19 04/21/19 17:24 17:24 03:55 Hgb Hct MCV 96 H 97 H MCH 33 H [place] % (Auto) 10.4 H 9.9 H [place] # 0.9 H 0.9 H Glucose 109 H POC Glucose Albumin Triglycerides HDL Cholesterol 04/21/19 04/22/19 04/22/19 03:55 09:52 09:52 Hgb 15.6 H Hct 47.0 H MCV 97 H MCH [place] % (Auto) [place] # Glucose 129 H POC Glucose Albumin 3.8 L Triglycerides 297 H HDL Cholesterol 36 L 04/22/19 21:22 Hgb Hct MCV MCH [place] % (Auto) [place] # Glucose POC Glucose 120 H Albumin Triglycerides HDL Cholesterol
[2019-04-23] MEDS: PEPCID PO SCH (12:07)
[2019-04-23] MEDS: HALFPRIN EC PO SCH (12:07)
[2019-04-23] MEDS: NAMENDA PO SCH ×2 (12:08→12:10)
[2019-04-23] MEDS: KEPPRA PO SCH (12:08)
[2019-04-23] MEDS: TRICOR PO SCH (12:08)
[2019-04-23] MEDS: FLOMAX PO SCH (12:09)
[2019-04-23] MEDS: SODIUM CHLORIDE FLUSH SYRINGE 10 ML IV SCH (12:09)
[2019-04-23] MEDS: ZESTRIL PO SCH (12:12)
[2019-04-23] MEDS: SINEMET PO SCH ×2 (12:13→14:58)
[2019-04-23] MEDS: COREG PO SCH (12:13)
[2019-04-23] MEDS: HCTZ PO SCH (12:13)
[2019-04-23] MEDS: NORVASC PO SCH (12:13)
--- NOTE | 2019-04-23 14:00 | Progress Note ---
Assessment and Plan Assessment and plan: Patient is 63 yo man with history hypertension off medications for 6 months, ?PD and BPH who presented to ED with left sided weakness and slurred speech. Teleneurologist was used was deemed "NOT a tpa candidate due to Minor non- disabling symptoms markedly elevated blood pressure and symptoms (not) consis tent with LVO therefore no role for neuro-intervention." Patient blood pressure was 240/120, hence the IV Cardene drip and ICU admission. Left sided weakness and slurred speech due to Malignant Hypertension: d/w Neurologist, input noted MRI negative, 2D ECHO unremarkable, EF 50%, and Carotid doppler unremarkable but Brain MRA did mention ?aneurysm but CTA head negative f or aneurysm (d/w Dr. Burris) Malignant hypertension with Urgency: weaned off IV Cardene drip and start oral antihypertensives, low salt diet. Parkinson's Disorder: Sinemet new onset Dyslipidemia: statin BPH: continue Flomax Dementia: on Namenda History Interval history: Patient was seen and examined. Follow-up on current diagnosis of Slurred speech. No overnight events reported to me. Patient denies any chest pain, shortness breath, nausea/vomiting or severe headaches. Imaging, nursing note, chart, labs and old chart reviewed. Discussed with patient. Hospitalist Physical - Physical exam Narrative exam: Gen: WDWN, NAD, Awake, Alert, Orientated x 3 HEENT: NCAT, EOMI, PERRL, OP Clear Neck: supple, no adenopathy, no thyromegaly, no JVD CVS/Heart: RRR, normal S1S2, pulses present bilaterally Chest/Lungs: CTA B, Symmetrical chest expansion, good air entry bilaterally GI/Abdomen: soft, NTND, good bowel sounds, no guarding or rebound /Bladder: no suprapubic tenderness, no CVA or paraspinal tenderness Extermity/Skin: no c/c/e, no obvious rash MSK: FROM x 4 Neuro: CN 2-12 grossly intact except speech, no new focal deficits Psych: calm - Constitutional Vitals: Temp Pulse Resp BP Pulse Ox 98.7 F 61 20 143/89 93 04/23/19 12:09 04/23/19 12:09 04/23/19 12:09 04/23/19 12:09 04/23/19 12:09 Results - Labs CBC & Chem 7: 04/22/19 09:52 04/22/19 09:52 Labs: Laboratory Last Values WBC 9.9 K/mm3 (4.5-11.0) 04/22/19 09:52 RBC 4.85 M/mm3 (3.65-5.03) 04/22/19 09:52 Hgb 15.6 gm/dl (11.8-15.2) H 04/22/19 09:52 Hct 47.0 % (35.5-45.6) H 04/22/19 09:52 MCV 97 fl (84-94) H 04/22/19 09:52 MCH 32 pg (28-32) 04/22/19 09:52 MCHC 33 % (32-34) 04/22/19 09:52 RDW 14.1 % (13.2-15.2) 04/22/19 09:52 Plt Count 211 K/mm3 (140-440) 04/22/19 09:52 Lymph % (Auto) 25.5 % (13.4-35.0) 04/21/19 03:55 [place] % (Auto) 9.9 % (0.0-7.3) H 04/21/19 03:55 Eos % (Auto) 2.3 % (0.0-4.3) 04/21/19 03:55 Baso % (Auto) 0.6 % (0.0-1.8) 04/21/19 03:55 Lymph # 2.4 K/mm3 (1.2-5.4) 04/21/19 03:55 [place] # 0.9 K/mm3 (0.0-0.8) H 04/21/19 03:55 Eos # 0.2 K/mm3 (0.0-0.4) 04/21/19 03:55 Baso # 0.1 K/mm3 (0.0-0.1) 04/21/19 03:55 Seg Neutrophils % 61.7 % (40.0-70.0) 04/21/19 03:55 Seg Neutrophils # 5.8 K/mm3 (1.8-7.7) 04/21/19 03:55 PT 13.2 Sec. (12.2-14.9) 04/20/19 17:24 INR 1.03 (0.87-1.13) 04/20/19 17:24 APTT 28.3 Sec. (24.2-36.6) 04/20/19 17:24 16.7 Sec. (15.1-19.6) 04/20/19 17:24 Sodium 142 mmol/L (137-145) 04/22/19 09:52 Potassium 4.3 mmol/L (3.6-5.0) 04/22/19 09:52 Chloride 103.5 mmol/L (98-107) 04/22/19 09:52 Carbon Dioxide 24 mmol/L (22-30) 04/22/19 09:52 19 mmol/L 04/22/19 09:52 BUN 18 mg/dL (9-20) 04/22/19 09:52 1.0 mg/dL (0.8-1.5) 04/22/19 09:52 Estimated GFR > 60 ml/min 04/22/19 09:52 18 % 04/22/19 09:52 Glucose 129 mg/dL (75-100) H 04/22/19 09:52 POC Glucose 120 (70-105) H 04/22/19 21:22 5.1 % (4-6) 04/20/19 20:43 Calcium 9.7 mg/dL (8.4-10.2) 04/22/19 09:52 0.20 mg/dL (0.1-1.2) 04/21/19 03:55 AST 14 units/L (5-40) 04/21/19 03:55 ALT 14 units/L (7-56) 04/21/19 03:55 84 units/L (35-129) 04/21/19 03:55 < 0.010 ng/mL (0.00-0.029) 04/20/19 17:24 7.0 g/dL (6.3-8.2) 04/21/19 03:55 3.8 g/dL (3.9-5) L 04/21/19 03:55 1.2 % 04/21/19 03:55 Triglycerides 297 mg/dL (2-149) H 04/21/19 03:55 Cholesterol 178 mg/dL (50-199) 04/21/19 03:55 120 mg/dL (50-130) 04/21/19 03:55 36 mg/dL (40-59) L 04/21/19 03:55 4.94 % 04/21/19 03:55 Active Medications - Current Medications Current Medications: Generic Name Dose Route Start Last Admin Trade Name Freq PRN Reason Stop Dose Admin Acetaminophen 650 mg 04/20/19 20:20 04/22/19 08:31 Tylenol PO 650 mg Q4H PRN Administration Pain MILD(1-3)/Fever >100.5/MORALES Amlodipine Besylate 10 mg 04/20/19 21:00 04/23/19 12:13 Norvasc PO Not Given QDAY DARCI Aspirin 81 mg 04/21/19 10:00 04/23/19 12:07 Halfprin Ec PO 81 mg DAILY DARCI Administration Atorvastatin Calcium 40 mg 04/20/19 22:00 04/22/19 22:31 Lipitor PO 40 mg QHS DARCI Administration Carbidopa/Levodopa 1 each 04/22/19 18:00 04/23/19 12:13 Sinemet PO 1 each QID DARCI Administration Carvedilol 12.5 mg 04/20/19 22:00 04/23/19 12:13 Coreg PO Not Given BID DARCI Famotidine 20 mg 04/20/19 22:00 04/23/19 12:07 Pepcid PO 20 mg BID DARCI Administration Fenofibrate 145 mg 04/21/19 11:00 04/23/19 12:08 Tricor PO 145 mg QDAY DARCI Administration Hydrochlorothiazide 12.5 mg 04/20/19 21:00 04/23/19 12:13 Hctz PO Not Given QDAY DARCI Hydromorphone HCl 0.5 mg 04/20/19 20:21 Dilaudid IV Q3H PRN Pain , Severe (7-10) Levetiracetam 750 mg 04/20/19 22:00 04/23/19 12:08 Keppra PO 750 mg BID DARCI Administration Lisinopril 20 mg 04/20/19 21:00 04/23/19 12:12 Zestril PO Not Given QDAY DARCI Memantine 5 mg 04/22/19 11:30 04/23/19 12:10 Namenda PO 5 mg BID DARCI Administration Metoclopramide HCl 10 mg 04/20/19 20:21 Reglan IV Q6H PRN Nausea And Vomiting Ondansetron HCl 4 mg 04/20/19 20:20 Zofran IV Q8H PRN Nausea And Vomiting Oxycodone/Acetaminophen 1 tab 04/20/19 20:21 04/22/19 19:00 Percocet 5/325 PO 1 tab Q6H PRN Administration Pain, Moderate (4-6) Sodium Chloride 10 ml 04/20/19 22:00 04/23/19 12:09 Sodium Chloride Flush Syringe 10 Ml IV 10 ml BID DARCI Administration Sodium Chloride 10 ml 04/20/19 20:20 Sodium Chloride Flush Syringe 10 Ml IV PRN PRN LINE FLUSH Tamsulosin HCl 0.4 mg 04/20/19 21:00 04/23/19 12:09 Flomax PO 0.4 mg DAILY DARCI Administration Nutrition/Malnutrition Assess - Dietary Evaluation Nutrition/Malnutrition Findings: Nutrition Notes Start: 04/21/19 10:59 Freq: Status: Active Protocol: Document 04/21/19 10:59 LM (Rec: 04/21/19 11:02 LM [id number]) Nutrition Notes Need for Assessment generated from: epidemiology internship,MST Initial or Follow up Brief Note Weight change and time frame Pt stated he gained 11 lb in 2 months Subjective/Other Information RN screen for MST. Pt ate 100% of breakfast this AM. Pt stated he had no weight loss. Pt's UBW is between 245-250 lb . Nutrition Intervention Revisit per MD consult or patient Sign Off request:
--- NOTE | 2019-04-23 14:08 | Discharge Summary ---
Providers - Providers Date of Admission: 04/20/19 18:10 Date of discharge: 04/23/19 Attending physician: CARINE CHURCHILL 04/20/19 20:21 Consult to Physician [CONS] Routine Comment: Consulting Provider: PAYAL HARVEY Physician Instructions: Reason For Exam: TIA 04/20/19 20:23 Occupational Therapy Evaluate and Treat [CONS] Routine Comment: Reason For Exam: Neuro deficits Physical Therapy Evaluation and Treat [CONS] Routine Comment: Reason For Exam: Neuro deficits 04/21/19 06:49 Consult to Physician [CONS] Routine Comment: Consulting Provider: JENNIE CHEATHAM Physician Instructions: Reason For Exam: TIA/CVA/HTN emergency Primary care physician: TRAIN MASTER Hospitalization Condition: Stable Hospital course: Patient is 63 yo man with history hypertension off medications for 6 months, ?PD and BPH who presented to ED with left sided weakness and slurred speech. Teleneurologist was used was deemed "NOT a tpa candidate due to Minor non- disabling symptoms markedly elevated blood pressure and symptoms (not) consistent with LVO therefore no role for neuro-intervention." Patient blood pressure was 240/120, hence the IV Cardene drip and ICU admission. Discharge Diagnoses: Left sided weakness and slurred speech due to Malignant Hypertension: d/w Neur ologist, input noted MRI negative, 2D ECHO unremarkable, EF 50%, and Carotid doppler unremarkable but Brain MRA did mention ?aneurysm but CTA head negative for aneurysm (d/w Dr. Burris), CVA ruled out Malignant hypertension with Urgency: weaned off IV Cardene drip and start oral antihypertensives, low salt diet. Parkinson's Disorder: Sinemet new onset Dyslipidemia: statin BPH: continue Flomax Dementia: on Namenda Disposition: DC-01 TO HOME OR SELFCARE Time spent for discharge: 32 minutes Core Measure Documentation - Palliative Care Palliative Care/ Comfort Measures: Not Applicable - Core Measures Any of the following diagnoses?: none - VTE Discharge Requirements Deep Vein Thrombosis/Pulmonary Embolism Present on Admission: No Has pt received <5 days of overlap therapy or INR<2.0: No Anticoagulant overlap therapy prescribed at discharge: No Contraindication No Overlap Therapy order at DC: Not Indicated Exam - Physical Exam Narrative exam: Gen: WDWN, NAD, Awake, Alert, Orientated x 3 HEENT: NCAT, EOMI, PERRL, OP Clear Neck: supple, no adenopathy, no thyromegaly, no JVD CVS/Heart: RRR, normal S1S2, pulses present bilaterally Chest/Lungs: CTA B, Symmetrical chest expansion, good air entry bilaterally GI/Abdomen: soft, NTND, good bowel sounds, no guarding or rebound /Bladder: no suprapubic tenderness, no CVA or paraspinal tenderness Extermity/Skin: no c/c/e, no obvious rash MSK: FROM x 4 Neuro: CN 2-12 grossly intact except speech, no new focal deficits Psych: calm - Constitutional Vitals: Temp Pulse Resp BP Pulse Ox 98.7 F 61 20 143/89 93 04/23/19 12:09 04/23/19 12:09 04/23/19 12:09 04/23/19 12:09 04/23/19 12:09 Plan Activity: other (no strenous activity) Diet: low salt Follow up with: PRIMARY CARE, [Primary Care Provider] - 7 Days JENNIE CHEATHAM MD [Staff Physician] - 7 Days ROBI SAWYER MD [Staff Physician] - 7 Days Prescriptions: AtorvaSTATin [Lipitor] 40 mg PO QHS #30 tablet Carvedilol [Coreg] 12.5 mg PO BID #60 tablet amLODIPine [Norvasc] 10 mg PO QDAY #30 tablet
[2019-04-23 18:50] VITALS: BP 159/93
== END 2019-04-23 17:55 | disposition home health service (06) | DRG 305 ==
LOC: ED 16:58 → CC1 18:10 → IMCU 19:37 → CC1 19:50 → 3A 04-21 14:13
PROVIDERS: ADMIT Internal Medicine; ATTEND Internal Medicine
PROC: 3E0234Z Introduction of Serum, Toxoid and Vaccine into Muscle, Percutaneous Approach (ICD-10-PCS; principal; 2019-04-22)
DX: I16.1 Hypertensive emergency (principal); G20 Parkinson's disease; I10 Essential (primary) hypertension; N40.0 Benign prostatic hyperplasia without lower urinary tract symptoms; E78.5 Hyperlipidemia, unspecified; K21.9 Gastro-esophageal reflux disease without esophagitis; R47.1 Dysarthria and anarthria; E78.1 Pure hyperglyceridemia; F03.90 Unspecified dementia, unspecified severity, without behavioral disturbance, psychotic disturbance, mood disturbance, and anxiety; Z82.49 Family history of ischemic heart disease and other diseases of the circulatory system; Z79.82 Long term (current) use of aspirin; Z79.899 Other long term (current) drug therapy; Z87.01 Personal history of pneumonia (recurrent); Z93.0 Tracheostomy status; Z23 Encounter for immunization
CPT/HCPCS: 36415; 70450; 70496; 70498; 70544; 70551; 71046; 80048; 80053; 80061; 82962; 83036; 84484; 85025; 85027; 85610; 85670; 85730; 90732; 93005; 93010; 93306; 93880; G0378; A9270-GY; J7030; J7050

== ENCOUNTER 2021-02-08 13:36 | Emergency (ER) | payer MEDICARE ==
--- NOTE | 2021-02-08 14:33 | XRay Report ---
CHEST 2 VIEWS INDICATION / CLINICAL INFORMATION: Cough. COMPARISON: 04/22/19. FINDINGS: SUPPORT DEVICES: None. HEART / MEDIASTINUM: The heart size and pulmonary vasculature are normal. LUNGS / PLEURA: There are minimal chronic appearing changes in both lungs. No acute pulmonary or pleu ral abnormality. No pneumothorax. ADDITIONAL FINDINGS: No significant additional findings. IMPRESSION: No acute abnormality or significant change. Signer Name: Paul Estrella MD Signed: 02/08/2021 2:29 PM Workstation Name: [id number]
--- NOTE | 2021-02-08 14:55 | Event Note ---
ED Screening Note Date of service: 02/08/21 Time: 14:52 ED Screening Note: 65-year-old wheelchair-bound male patient with history of Parkinson's disease and hypertension presents to the emergency department with complaints of chest pain, shortness of breath, palpitations, and near syncope for 2 days. Patient is on a dopamine agonist for his Parkinson's disease and states his telemedicine provider recently increased the dose. He has had any blood work performed or seen his primary care provider in person for over 1 year. No recent fall, trauma, injury. General: Awake, appropriately interactive, no acute distress. Neck: Supple. Full range of motion intact. Cardiovascular: Normal peripheral perfusion. Pulmonary: No respiratory distress. Patient is speaking normally without use of accessory muscles. Skin: No apparent rashes or lesions. Neurological: No facial asymmetry. Speech is clear. Follows commands. Patient is alert and oriented. Musculoskeletal: Moves all four extremities spontaneously with normal range of motion. Psych: Cooperative. Appropriate mood and affect. I have greeted and performed a focused rapid initial assessment of this patient. A comprehensive ED assessment and evaluation of the patient, analysis of all test results, and completion of the medical decision-making process will be conducted by additional ED providers. This initial assessment/diagnostic orders/clinical plan/treatment(s) is/are subject to change based on patients health status, clinical progression and re-assessment. Further treatment and workup at subsequent clinical provider's discretion. Patient/guardian urged not to elope from the ED as their condition may be serious if not clinically assessed and managed.
[2021-02-08 15:16] LABS: Basophils # (Auto) 0.1 K/mm3 (0.0-0.1); Basophils % (Auto) 0.6 % (0.0-1.8); Eosinophils # (Auto) 0.1 K/mm3 (0.0-0.4); Eosinophils % (Auto) 0.9 % (0.0-4.3); Hematocrit 50.2 % (35.5-45.6); Hemoglobin 16.7 gm/dl (11.8-15.2); Lymphocytes # (Auto) 1.8 K/mm3 (1.2-5.4); Lymphocytes % (Auto) 15.1 % (13.4-35.0); Mean Corpuscular HGB Conc 33 % (32-34); Mean Corpuscular Volume 95 fl (84-94); Monocytes # (Auto) 1.2 K/mm3 (0.0-0.8); Monocytes % (Auto) 9.4 % (0.0-7.3); Platelet Count 196 K/mm3 (140-440); Red Blood Count 5.29 M/mm3 (3.65-5.03)
[2021-02-08 15:43] LABS: Alanine Aminotransferase 11 units/L (7-56); Albumin 4.5 g/dL (3.9-5); BUN/Creatinine Ratio 18; Blood Urea Nitrogen 14 mg/dL (9-20); Hemolysis Index 15
--- NOTE | 2021-02-08 23:49 | Emergency Department Report ---
ED General Adult HPI - General Chief complaint: Arrhythmia/Palpitations Stated complaint: SOB Time Seen by Provider: 02/08/21 14:20 Source: patient Mode of arrival: Stretcher Limitations: No Limitations - History of Present Illness Initial comments: Patient presents to the emergency department with a chief complaint of confusion, nausea and palpitations for 2 weeks. Patient states he has a history of Parkinson's disease and recently had his Sinemet dosage increase. Patient states the dosage was increased 2 weeks ago right before symptoms began. He denies chest pain but states that he is confused. -: Gradual Severity scale (0 -10): 0 Consistency: constant Improves with: none Worsens with: none Associated Symptoms: denies other symptoms Treatments Prior to Arrival: none - Related Data Home Medications Medication Instructions Recorded Confirmed Last Taken Aspirin [Adult Aspirin] 81 mg PO DAILY 12/20/18 04/20/19 04/20/19 Carbidopa/Levodopa 25-250 [Sinemet 25 - 250 mg PO 4XD 12/20/18 04/20/19 04/20/19 25/250] Lisinopril/Hydrochlorothiazide 12.5 - 20 mg PO DAILY 12/20/18 04/20/19 04/20/19 [Zestoretic 20-12.5 mg] Memantine 5 mg PO BID 12/20/18 04/20/19 04/20/19 Tamsulosin HCl [Flomax] 0.4 mg PO DAILY 12/20/18 04/20/19 04/20/19 Previous Rx's Medication Instructions Recorded Last Taken Type levETIRAcetam [Keppra TAB] 750 mg PO BID #60 tablet 12/24/18 04/20/19 Rx Acetaminophen [Acetaminophen TAB] 2 tab PO Q4H PRN #15 tablet 04/23/19 Unknown Rx AtorvaSTATin [Lipitor] 40 mg PO QHS #30 tablet 04/23/19 Unknown Rx Famotidine [Pepcid] 20 mg PO BID #30 tablet 04/23/19 Unknown Rx amLODIPine 10 mg PO QDAY #30 tablet 04/23/19 Unknown Rx carvediloL [Coreg] 12.5 mg PO BID #60 tablet 04/23/19 Unknown Rx Allergies Allergy/AdvReac Type Severity Reaction Status Date / Time No Known Allergies Allergy Verified 04/20/19 19:35 ED Review of Systems ROS: Stated complaint: SOB Other details as noted in HPI Comment: All other systems reviewed and negative Constitutional: denies: chills, fever Eyes: denies: eye pain, eye discharge, vision change ENT: denies: ear pain, throat pain Respiratory: denies: cough, shortness of breath, wheezing Cardiovascular: denies: chest pain, palpitations Endocrine: no symptoms reported Gastrointestinal: denies: abdominal pain, nausea, diarrhea Genitourinary: denies: urgency, dysuria Musculoskeletal: denies: back pain, joint swelling, arthralgia Skin: denies: rash, lesions Neurological: denies: headache, weakness, paresthesias Psychiatric: denies: anxiety, depression Hematological/Lymphatic: denies: easy bleeding, easy bruising ED Past Medical Hx - Past Medical History Previous Medical History?: Yes Hx Hypertension: Yes Hx Diabetes: No Hx GERD: Yes Hx Seizures: Yes Hx COPD: No Hx HIV: No Additional medical history: parkinson. pneumonia - Surgical History Past Surgical History?: Yes Additional Surgical History: Tracheostomy secondary to pneumonia/respiratory failure - Social History Smoking Status: Never Smoker - Medications Home Medications: Home Medications Medication Instructions Recorded Confirmed Last Taken Type Aspirin [Adult Aspirin] 81 mg PO DAILY 12/20/18 04/20/19 04/20/19 History Carbidopa/Levodopa 25-250 [Sinemet 25 - 250 mg PO 4XD 12/20/18 04/20/19 04/20/19 History 25/250] Lisinopril/Hydrochlorothiazide 12.5 - 20 mg PO DAILY 12/20/18 04/20/19 04/20/19 History [Zestoretic 20-12.5 mg] Memantine 5 mg PO BID 12/20/18 04/20/19 04/20/19 History Tamsulosin HCl [Flomax] 0.4 mg PO DAILY 12/20/18 04/20/19 04/20/19 History levETIRAcetam [Keppra TAB] 750 mg PO BID #60 tablet 12/24/18 04/20/19 04/20/19 Rx Acetaminophen [Acetaminophen TAB] 2 tab PO Q4H PRN #15 tablet 04/23/19 Unknown Rx AtorvaSTATin [Lipitor] 40 mg PO QHS #30 tablet 04/23/19 Unknown Rx Famotidine [Pepcid] 20 mg PO BID #30 tablet 04/23/19 Unknown Rx amLODIPine 10 mg PO QDAY #30 tablet 04/23/19 Unknown Rx carvediloL [Coreg] 12.5 mg PO BID #60 tablet 04/23/19 Unknown Rx ED Physical Exam - General Limitations: No Limitations General appearance: alert, in no apparent distress - Head Head exam: Present: atraumatic, normocephalic - Eye Eye exam: Present: normal appearance - ENT ENT exam: Present: mucous membranes moist - Neck Neck exam: Present: normal inspection - Respiratory Respiratory exam: Present: normal lung sounds bilaterally. Absent: respiratory distress - Cardiovascular Cardiovascular Exam: Present: regular rate, normal rhythm. Absent: systolic murmur, diastolic murmur, rubs, gallop - GI/Abdominal GI/Abdominal exam: Present: soft, normal bowel sounds. Absent: distended, tenderness - Rectal Rectal exam: Present: deferred - Extremities Exam Extremities exam: Present: normal inspection - Back Exam Back exam: Present: normal inspection - Neurological Exam Neurological exam: Present: alert, oriented X3, CN II-XII intact. Absent: motor sensory deficit - Psychiatric Psychiatric exam: Present: normal mood, flat affect - Skin Skin exam: Present: warm, dry, intact, normal color. Absent: rash ED Course Vital Signs 02/08/21 14:16 Temperature 98 F Pulse Rate 76 Respiratory 16 Rate Blood Pressure 138/72 [Right] O2 Sat by Pulse 98 Oximetry ED Medical Decision Making - Lab Data Result diagrams: 02/08/21 15:05 02/08/21 15:05 Lab Results 02/08/21 02/08/21 02/08/21 Range/Units 15:05 15:05 15:05 WBC 12.2 H (4.5-11.0) K/mm3 RBC 5.29 H (3.65-5.03) M/mm3 Hgb 16.7 H (11.8-15.2) gm/dl Hct 50.2 H (35.5-45.6) % MCV 95 H (84-94) fl MCH 32 (28-32) pg MCHC 33 (32-34) % RDW 14.0 (13.2-15.2) % Plt Count 196 (140-440) K/mm3 Lymph % (Auto) 15.1 (13.4-35.0) % Cuming % (Auto) 9.4 H (0.0-7.3) % Eos % (Auto) 0.9 (0.0-4.3) % Baso % (Auto) 0.6 (0.0-1.8) % Lymph # (Auto) 1.8 (1.2-5.4) K/mm3 Cuming # (Auto) 1.2 H (0.0-0.8) K/mm3 Eos # (Auto) 0.1 (0.0-0.4) K/mm3 Baso # (Auto) 0.1 (0.0-0.1) K/mm3 Seg Neutrophils % 74.0 H (40.0-70.0) % Seg Neutrophils # 9.0 H (1.8-7.7) K/mm3 Sodium 137 (137-145) mmol/L Potassium 4.2 (3.6-5.0) mmol/L Chloride 101.0 (98-107) mmol/L Carbon Dioxide 22 (22-30) mmol/L Anion Gap 18 mmol/L BUN 14 (9-20) mg/dL Creatinine 0.8 (0.8-1.3) mg/dL Estimated GFR > 60 ml/min BUN/Creatinine Ratio 18 % Glucose 106 H (75-100) mg/dL Calcium 10.0 (8.4-10.2) mg/dL Magnesium 2.10 (1.7-2.3) mg/dL Total Bilirubin 0.60 (0.1-1.2) mg/dL AST 14 (5-40) units/L ALT 11 (7-56) units/L Alkaline Phosphatase 118 (35-129) units/L Troponin T < 0.010 (0.00-0.029) ng/mL Total Protein 8.2 (6.3-8.2) g/dL Albumin 4.5 (3.9-5) g/dL Albumin/Globulin Ratio 1.2 % TSH 1.360 (0.270-4.200) mlU/mL 02/08/21 Range/Units 17:16 WBC (4.5-11.0) K/mm3 RBC (3.65-5.03) M/mm3 Hgb (11.8-15.2) gm/dl Hct (35.5-45.6) % MCV (84-94) fl MCH (28-32) pg MCHC (32-34) % RDW (13.2-15.2) % Plt Count (140-440) K/mm3 Lymph % (Auto) (13.4-35.0) % Cuming % (Auto) (0.0-7.3) % Eos % (Auto) (0.0-4.3) % Baso % (Auto) (0.0-1.8) % Lymph # (Auto) (1.2-5.4) K/mm3 Cuming # (Auto) (0.0-0.8) K/mm3 Eos # (Auto) (0.0-0.4) K/mm3 Baso # (Auto) (0.0-0.1) K/mm3 Seg Neutrophils % (40.0-70.0) % Seg Neutrophils # (1.8-7.7) K/mm3 Sodium (137-145) mmol/L Potassium (3.6-5.0) mmol/L Chloride (98-107) mmol/L Carbon Dioxide (22-30) mmol/L Anion Gap mmol/L BUN (9-20) mg/dL Creatinine (0.8-1.3) mg/dL Estimated GFR ml/min BUN/Creatinine Ratio % Glucose (75-100) mg/dL Calcium (8.4-10.2) mg/dL Magnesium (1.7-2.3) mg/dL Total Bilirubin (0.1-1.2) mg/dL AST (5-40) units/L ALT (7-56) units/L Alkaline Phosphatase (35-129) units/L Troponin T < 0.010 (0.00-0.029) ng/mL Total Protein (6.3-8.2) g/dL Albumin (3.9-5) g/dL Albumin/Globulin Ratio % TSH (0.270-4.200) mlU/mL - EKG Data -: EKG Interpreted by Me EKG shows normal: sinus rhythm Rate: normal - Radiology Data Radiology results: report reviewed - Medical Decision Making Results discussed with patient Patient is able to answer all questions pertaining to immunity mental status exam Discussed with patient need to follow-up with his prescriber for further evaluation if needed Patient is not tachycardic or febrile thus showing no signs of serotonin syndrome he also does not have rigidity Critical care attestation.: If time is entered above; I have spent that time in minutes in the direct care of this critically ill patient, excluding procedure time. ED Disposition Clinical Impression: Side effect of medication Disposition: DC-01 TO HOME OR SELFCARE Is pt being admited?: No Does the pt Need Aspirin: No Condition: Stable Instructions: Parkinson's Disease Additional Instructions: Return if worse Referrals: PRIMARY CAREMD [Primary Care Provider] - 3-5 Days BOB LAURENT MD [Staff Physician] - 3-5 Days Time of Disposition: 01:00
--- NOTE | 2021-02-09 00:35 | Cat Scan Report ---
Examination: CT of the head without contrast Clinical information: Altered mental status. Confusion. Comparison: CT of the head, 04/20/2019 Technical: Multiple axial CT images of the head were obtained without intravenous contrast. Sagittal and coronal reformats were obtained. All CTs at this facility utilize dose reduction techniques inc luding automated exposure control, iterative reconstruction and weight based dosing when appropriate to reduce patient radiation dose to as low as reasonable achievable. Findings: INTRACRANIAL CONTENTS: There is no CT evidence of acute intracranial hemorrhage. Confluent regions of hypodensity are again noted within the periventricular and deep white matter bilaterally. There is m ild generalized atrophy. The ventricular system remains normal in size. SKULL: No acute bony abnormality is visualized. ORBITS: The bilateral orbits and globes appear normal PARANASAL SINUSES / MASTOID AIR CELLS: Paranasal sinuses and mastoid air cells appear clear. Impression: 1. Changes associated with chronic small vessel ischemic disease and atrophy. Signer Name: Buffy Thomas MD Signed: 02/09/2021 12:31 AM Workstation Name: [id number]
[2021-02-09 07:56] VITALS: BP 137/80
--- NOTE | 2021-02-10 19:28 | Electrocardiograph Report ---
[facility] [place] Test Date: 2021-02-08 Test Time: 14:55:31 Pat Name: SHAHEEN HOLCOMB Department: Room: Gender: M Patient Escort: MALLY : 1955 Requested By: OLIVIER SNEED Order Number: [id number] Reading MD: Mehul Gibson Measurements Intervals [place] Rate: 73 P: 34 AL: 207 QRS: 35 QRSD: 86 T: 48 QT: 371 QTc: 409 Interpretive Statements Sinus rhythm No previous ECG available for comparison Electronically Signed On 02-10-2021 19:27:48 EDT by Mehul Gibson
== END 2021-02-09 09:20 | disposition home or self-care (01) ==
LOC: ED 13:36
DX: T88.7XXA Unspecified adverse effect of drug or medicament, initial encounter (principal); Z98.890 Other specified postprocedural states; Z79.899 Other long term (current) drug therapy; Z86.69 Personal history of other diseases of the nervous system and sense organs; X58.XXXA Exposure to other specified factors, initial encounter
CPT/HCPCS: 36415; 70450; 71046; 80053; 83735; 84443; 84484; 85025; 93005

== ENCOUNTER 2021-03-04 08:57 | Inpatient (IN) | payer MEDICARE ==
--- NOTE | 2021-03-04 09:29 | Emergency Department Report ---
ED General Adult HPI - General Stated complaint: UNABLE TO URINATE/DEFECATE X1 MO Time Seen by Provider: 03/04/21 09:22 - History of Present Illness Initial comments: Patient is 65 years old male with history of parkinson disease, hypertension and benign prostatic hypertrophy. Patient presented to the ER stating that he is having trouble urinating for the last 2 days. He also added that he has constipation for approximately 1 month now. Patient stated had symptoms similar before. Patient denied any headache, focal weakness numbness or tingling s ensation. No chest pain or shortness of breath. Patient is also complaining of suprapubic abdominal pain. -: days(s) - Related Data Home Medications Medication Instructions Recorded Confirmed Last Taken Aspirin [Adult Aspirin] 81 mg PO DAILY 12/20/18 04/20/19 04/20/19 Carbidopa/Levodopa 25-250 [Sinemet 25 - 250 mg PO 4XD 12/20/18 04/20/19 04/20/19 25/250] Lisinopril/Hydrochlorothiazide 12.5 - 20 mg PO DAILY 12/20/18 04/20/19 04/20/19 [Zestoretic 20-12.5 mg] Memantine 5 mg PO BID 12/20/18 04/20/19 04/20/19 Tamsulosin HCl [Flomax] 0.4 mg PO DAILY 12/20/18 04/20/19 04/20/19 Previous Rx's Medication Instructions Recorded Last Taken Type levETIRAcetam [Keppra TAB] 750 mg PO BID #60 tablet 12/24/18 04/20/19 Rx Acetaminophen [Acetaminophen TAB] 2 tab PO Q4H PRN #15 tablet 04/23/19 Unknown Rx AtorvaSTATin [Lipitor] 40 mg PO QHS #30 tablet 04/23/19 Unknown Rx Famotidine [Pepcid] 20 mg PO BID #30 tablet 04/23/19 Unknown Rx amLODIPine 10 mg PO QDAY #30 tablet 04/23/19 Unknown Rx carvediloL [Coreg] 12.5 mg PO BID #60 tablet 04/23/19 Unknown Rx Allergies Allergy/AdvReac Type Severity Reaction Status Date / Time No Known Allergies Allergy Verified 04/20/19 19:35 ED Review of Systems ROS: Stated complaint: UNABLE TO URINATE/DEFECATE X1 MO Other details as noted in HPI Comment: All other systems reviewed and negative Constitutional: denies: chills, fever Respiratory: denies: cough, shortness of breath Cardiovascular: denies: chest pain, palpitations Gastrointestinal: abdominal pain, constipation. denies: nausea, vomiting, diarrhea, hematemesis, melena, hematochezia Genitourinary: urgency, dysuria, frequency. denies: hematuria Musculoskeletal: denies: back pain Neurological: denies: headache, weakness, numbness, paresthesias ED Past Medical Hx - Past Medical History Hx Hypertension: Yes Hx Diabetes: No Hx GERD: Yes Hx Seizures: Yes Hx COPD: No Hx HIV: No Additional medical history: parkinson. pneumonia - Surgical History Additional Surgical History: Tracheostomy secondary to pneumonia/respiratory failure - Social History Smoking Status: Never Smoker - Medications Home Medications: Home Medications Medication Instructions Recorded Confirmed Last Taken Type Aspirin [Adult Aspirin] 81 mg PO DAILY 12/20/18 04/20/19 04/20/19 History Carbidopa/Levodopa 25-250 [Sinemet 25 - 250 mg PO 4XD 12/20/18 04/20/19 04/20/19 History 25/250] Lisinopril/Hydrochlorothiazide 12.5 - 20 mg PO DAILY 12/20/18 04/20/19 04/20/19 History [Zestoretic 20-12.5 mg] Memantine 5 mg PO BID 12/20/18 04/20/19 04/20/19 History Tamsulosin HCl [Flomax] 0.4 mg PO DAILY 12/20/18 04/20/19 04/20/19 History levETIRAcetam [Keppra TAB] 750 mg PO BID #60 tablet 12/24/18 04/20/19 04/20/19 Rx Acetaminophen [Acetaminophen TAB] 2 tab PO Q4H PRN #15 tablet 04/23/19 Unknown Rx AtorvaSTATin [Lipitor] 40 mg PO QHS #30 tablet 04/23/19 Unknown Rx Famotidine [Pepcid] 20 mg PO BID #30 tablet 04/23/19 Unknown Rx amLODIPine 10 mg PO QDAY #30 tablet 04/23/19 Unknown Rx carvediloL [Coreg] 12.5 mg PO BID #60 tablet 04/23/19 Unknown Rx ED Physical Exam - General General appearance: alert, in no apparent distress - Head Head exam: Present: atraumatic, normocephalic, normal inspection - Eye Eye exam: Present: normal appearance, PERRL - ENT ENT exam: Present: normal exam, normal orophraynx, mucous membranes moist - Neck Neck exam: Present: normal inspection, full ROM. Absent: tenderness, meningismus - Respiratory Respiratory exam: Present: normal lung sounds bilaterally - Cardiovascular Cardiovascular Exam: Present: regular rate, normal rhythm, normal heart sounds - GI/Abdominal GI/Abdominal exam: Present: soft, normal bowel sounds. Absent: distended, tenderness, guarding, rebound, rigid, organomegaly, mass, bruit, pulsatile mass, hernia - Extremities Exam Extremities exam: Present: normal inspection, full ROM, normal capillary refill. Absent: tenderness - Back Exam Back exam: Present: normal inspection, full ROM. Absent: CVA tenderness (R), CVA tenderness (L) - Neurological Exam Neurological exam: Present: alert, oriented X3, CN II-XII intact - Psychiatric Psychiatric exam: Present: normal mood - Skin Skin exam: Present: warm, intact, normal color ED Course Vital Signs 03/04/21 03/04/21 03/04/21 09:30 11:31 12:01 Pulse Rate 100 H 82 84 Respiratory 18 15 22 Rate Blood Pressure 154/92 146/95 146/95 O2 Sat by Pulse 98 93 92 Oximetry 03/04/21 03/04/21 03/04/21 12:31 13:01 13:43 Pulse Rate 79 82 Respiratory 18 15 18 Rate Blood Pressure 146/95 146/95 O2 Sat by Pulse 94 91 97 Oximetry 03/04/21 03/04/21 03/04/21 14:01 14:31 15:01 Pulse Rate 78 78 80 Respiratory 21 21 16 Rate Blood Pressure 146/95 163/92 162/101 O2 Sat by Pulse 94 93 Oximetry 03/04/21 03/04/21 03/04/21 15:31 16:01 16:31 Pulse Rate 75 81 76 Respiratory 19 21 20 Rate Blood Pressure 162/101 156/92 156/92 O2 Sat by Pulse 94 93 93 Oximetry 03/04/21 03/04/21 03/04/21 17:01 17:31 18:01 Pulse Rate 81 76 74 Respiratory 22 18 23 Rate Blood Pressure 145/91 145/91 159/85 O2 Sat by Pulse 92 92 94 Oximetry 03/04/21 03/04/21 03/04/21 19:01 20:01 20:31 Pulse Rate 89 77 73 Respiratory 14 15 17 Rate Blood Pressure 174/106 174/106 174/106 O2 Sat by Pulse Oximetry 03/04/21 03/04/21 20:41 20:51 Pulse Rate 78 Respiratory 22 Rate Blood Pressure 174/106 174/106 O2 Sat by Pulse Oximetry ED Medical Decision Making - Lab Data Result diagrams: 03/04/21 09:35 03/04/21 09:35 - Radiology Data Radiology results: report reviewed - Medical Decision Making Patient is 65 years old male with history of parkinson disease, hypertension and benign prostatic hypertrophy. Patient presented to the ER stating that he is having trouble urinating for the last 2 days. He also added that he has constipation for approximately 1 month now. Patient stated had symptoms similar before. Patient denied any headache, focal weakness numbness or tingling sensation. No chest pain or shortness of breath. Patient is also complaining of suprapubic abdominal pain. Labs reviewed and showed a white blood cells of 22,000. Rest of the labs are unremarkable. CT abdomen and pelvis with IV contrast showed evidence of colitis. Patient initially received Rocephin 1 g. I discussed the patient with Dr. Klein, he agreed to admit the patient to medical service for further management. Critical care attestation.: If time is entered above; I have spent that time in minutes in the direct care of this critically ill patient, excluding procedure time. ED Disposition Clinical Impression: Parkinson disease, Acute abdominal pain, Acute colitis, Acute urinary retention, Acute constipation Disposition: OP ADMIT IP TO THIS HOSP Is pt being admited?: Yes Condition: Stable
[2021-03-04 10:05] LABS: Hematocrit 50.1 % (35.5-45.6); Mean Corpuscular HGB Conc 34 % (32-34); Mean Corpuscular Volume 94 fl (84-94); Platelet Count 187 K/mm3 (140-440); Red Blood Count 5.34 M/mm3 (3.65-5.03); Red Cell Distribution Width 13.7 % (13.2-15.2)
[2021-03-04 10:06] LABS: Alanine Aminotransferase 31 units/L (7-56); Albumin 4.4 g/dL (3.9-5); BUN/Creatinine Ratio 16; Bilirubin,Direct 0.2 mg/dL (0-0.2); Blood Urea Nitrogen 16 mg/dL (9-20); Calcium 9.7 mg/dL (8.4-10.2); Hemolysis Index 19
[2021-03-04] MEDS ORDERED: cefTRIAXone/NS 1 GM/50 ML 1 GM/50 ML BAG IV ONE (10:48)
[2021-03-04 11:30] LABS: Bilirubin,Urine NEG (Negative); Blood,Urine SM (Negative); Color,Urine Yellow (Yellow); Mucus,Urine 1+ /HPF; Urobilinogen,Urine < 2.0 mg/dL (<2.0)
[2021-03-04 11:58] LABS: Platelet Estimate Consistent w Auto; RBC Morphology Normal; Total Cells Counted 100
--- NOTE | 2021-03-04 12:59 | XRay Report ---
CHEST 1 VIEW 03/04/2021 11:52 AM INDICATION / CLINICAL INFORMATION: Leukocytosis. COMPARISON: 02/08/21. FINDINGS: SUPPORT DEVICES: None. HEART / MEDIASTINUM: The heart size and pulmonary vasculature are normal. LUNGS / PLEURA: No significant pulmonary or pleural abnormality. No pneumothorax. ADDITIONAL FINDINGS: No significant additional findings. IMPRESSION: No acute abnormality or significant change. I see no evidence of pneumonia. Signer Name: Paul Estrella MD Signed: 03/04/2021 12:54 PM Workstation Name: [id number]
--- NOTE | 2021-03-04 14:15 | Cat Scan Report ---
CT OF THE ABDOMEN AND PELVIS WITH INTRAVENOUS CONTRAST INDICATION / CLINICAL INFORMATION: Abdominal pain. TECHNIQUE: The patient received 100 cc Omnipaque [address] scans at this location are performed using CT dose reduction for ALARA by means of automated exposure control. COMPARISON: None available. FINDINGS: ABDOMEN: There is a 3.1 cm cystic lesion in the posterior segment of the right lobe of the liver with adjacent calcifications along its posterior margin, likely dystrophic. There is a small accessory sp jaya. The ruby spleen is normal. The gallbladder, bile ducts, pancreas, adrenal glands, kidneys and bowel demonstrate no significant abnormality. No adenopathy is present. There are mild chronic appea ring changes in both lung bases. PELVIS: There is a moderate to large amount of stool in the rectosigmoid which is distended. The wall appears mildly thickened and there is mild soft tissue stranding in the ischiorectal fossa fat and p resacral space. A Alfredo catheter is present in a collapsed urinary bladder. There is internal fixatio n of the right femur. A normal appendix is present and there is no evidence of diverticulitis. No abnormal mass or fluid co llection is seen. I do not identify a hernia. There is moderate spondylosis. IMPRESSION: 1. Evidence of fecal impaction in the rectosigmoid colon with findings characteristic of stercoral co litis. 2. Benign-appearing cystic lesion and adjacent calcifications in the posterior segment of the right l obe of the liver. Signer Name: Paul Estrella MD Signed: 03/04/2021 2:11 PM Workstation Name: [id number]
[2021-03-04] MEDS ORDERED: oxyCODONE /ACETAMINOPHEN 5-325MG TAB PO PRN (16:00)
[2021-03-04] MEDS ORDERED: ACETAMINOPHEN 325 MG TAB PO PRN (16:00)
[2021-03-04] MEDS ORDERED: ONDANSETRON 4 MG/2 ML INJ IV PRN (16:00)
[2021-03-04] MEDS ORDERED: HYDROmorphone 1 MG/1 ML INJ IV PRN (16:00)
[2021-03-04] MEDS ORDERED: ALBUTEROL 2.5 MG/3 ML NEBU IH PRN (16:00)
[2021-03-04] MEDS ORDERED: DOCUSATE SODIUM 100 MG CAP ONE (16:45)
[2021-03-04] MEDS ORDERED: DOCUSATE SODIUM 100 MG CAP PO ONE (16:50)
--- NOTE | 2021-03-04 20:13 | History and Physical Report ---
History of Present Illness Date of admission: 03/04/21 15:21 Chief complaint: Im constipated, and I cant urinate History of present illness: 65 YO Male with Parkinsons Disease, HTN, BPH,HLD, GERD, Obesity presents to ED for evaluation. Patient reports "I am constipated, and I cannot urinate". Patient states that he has experienced chronic constipation over the past 1 month with persistently worsening symptoms over the same timeframe. Patient also reports that he has been unable to urinate for the past 2 days. EMS was notified and upon arrival the patient was found to be in distress and subsequently transported to [facility] for further care and evaluation of the aforementioned symptoms. The patient was seen and evaluated in the emergency department. All lab and imaging studies reviewed. Patient underwent CT scan of the abdomen pelvis and was found to have retained stool consistent with chronic constipation, as well as urinary retention. Patient underwent placement of Alfredo catheter. Patient also found to have volume depletion, as well as leukocytosis. Patient placed in observation status and admitted to medical floor for further care and evaluation. Patient treated with IV fluid resuscitation therapy, empiric IV antibiotic therapy for leukocytosis. Patient denies fever, chills, chest pain, palpitation, productive cough, skin rash, recent contact, or known exposure to COVID-19. Prior admission on 04/20/2019 reviewed. All medication listed at time of admission has been reconciled. Advanced care planning conducted in ED. Past History Past Medical History: GERD, hypertension, hyperlipidemia, seizures Past Surgical History: Other (Tracheostomy placement) Social history: single. denies: smoking, alcohol abuse, prescription drug abuse Family history: hypertension Medications and Allergies Allergies Allergy/AdvReac Type Severity Reaction Status Date / Time No Known Allergies Allergy Verified 04/20/19 19:35 Home Medications Medication Instructions Recorded Confirmed Last Taken Type Aspirin [Adult Aspirin] 81 mg PO DAILY 12/20/18 04/20/19 04/20/19 History Carbidopa/Levodopa 25-250 [Sinemet 25 - 250 mg PO 4XD 12/20/18 04/20/19 04/20/19 History 25/250] Lisinopril/Hydrochlorothiazide 12.5 - 20 mg PO DAILY 12/20/18 04/20/19 04/20/19 History [Zestoretic 20-12.5 mg] Memantine 5 mg PO BID 04/04/20/19 04/20/19 History Tamsulosin HCl [Flomax] 0.4 mg PO DAILY 12/20/18 04/20/19 04/20/19 History levETIRAcetam [Keppra TAB] 750 mg PO BID #60 tablet 12/24/18 04/20/19 04/20/19 Rx Acetaminophen [Acetaminophen TAB] 2 tab PO Q4H PRN #15 tablet 04/23/19 Unknown Rx AtorvaSTATin [Lipitor] 40 mg PO QHS #30 tablet 04/23/19 Unknown Rx Famotidine [Pepcid] 20 mg PO BID #30 tablet 04/23/19 Unknown Rx amLODIPine 10 mg PO QDAY #30 tablet 04/23/19 Unknown Rx carvediloL [Coreg] 12.5 mg PO BID #60 tablet 04/23/19 Unknown Rx Active Meds: Active Medications Acetaminophen (Acetaminophen 325 Mg Tab) 650 mg PO Q4H PRN PRN Reason: Pain MILD(1-3)/Fever >100.5/MORALES Albuterol (Albuterol 2.5 Mg/3 Ml Nebu) 2.5 mg IH Q4HRT PRN PRN Reason: Shortness Of Breath Amlodipine Besylate (Amlodipine 10 Mg Tab) 10 mg PO QDAY [facility] Aspirin (Aspirin Ec 81 Mg Tab) 81 mg PO DAILY DARCI Atorvastatin Calcium (Atorvastatin 40 Mg Tab) 40 mg PO QHS [facility]ARCI Carvedilol (Carvedilol 12.5 Mg Tab) 12.5 mg PO BID DARCI Docusate Sodium (Docusate Sodium 100 Mg Cap) 100 mg PO BID [facility]ARCI Famotidine (Famotidine 20 Mg Tab) 20 mg PO BID [facility]ARCI Hydromorphone HCl (Hydromorphone 1 Mg/1 Ml Inj) 0.25 mg IV Q12H PRN PRN Reason: Pain, Moderate (4-6) Levetiracetam (Levetiracetam 500 Mg Tab) 750 mg PO BID DARCI Memantine (Memantine 5 Mg Tab) 5 mg PO BID DARCI Ondansetron HCl (Ondansetron 4 Mg/2 Ml Inj) 4 mg IV Q8H PRN PRN Reason: Nausea And Vomiting Oxycodone/Acetaminophen (Oxycodone /Acetaminophen 5-325mg Tab) 1 tab PO Q12H PRN PRN Reason: Pain, Moderate (4-6) Senna (Sennosides 8.6 Mg Tab) 8.6 mg PO Q12HR [facility] Sodium Chloride (Sodium Chloride 0.9% 10 Ml Flush Syringe) 10 ml IV BID [facility] Sodium Chloride (Sodium Chloride 0.9% 10 Ml Flush Syringe) 10 ml IV PRN PRN PRN Reason: LINE FLUSH Tamsulosin HCl (Tamsulosin 0.4 Mg Cap) 0.4 mg PO DAILY [facility] Review of Systems Constitutional: no weight loss, no weight gain, no fever, no chills Ears, nose, mouth and throat: no ear pain, no ear discharge, no nasal congestion Cardiovascular: no chest pain, no palpitations, no rapid/irregular heart beat, no edema, no syncope, no shortness of breath Respiratory: no cough, no cough with sputum, no hemoptysis, no dyspnea on exer tion Gastrointestinal: constipation, no abdominal pain, no nausea, no vomiting, no hematemesis Genitourinary Male: urinary retention, no hematuria, no flank pain, no discharge, no urinary frequency, no urinary hesitancy, no incontinence Rectal: no pain, no incontinence, no bleeding Musculoskeletal: no neck stiffness, no neck pain, no shooting arm pain, no arm numbness/tingling Integumentary: no rash, no pruritis, no redness, no sores, no wounds Neurological: no transient paralysis, no paralysis, no weakness, no parathesias, no numbness, no tingling Psychiatric: no anxiety, no memory loss, no sleep disturbances, no insomnia, no change in appetite, no change in libido, no disorientation Endocrine: no cold intolerance, no heat intolerance, no excessive thirst, no polyuria Hematologic/Lymphatic: no easy bruising, no easy bleeding, no lymphadenopathy, no lymphedema Allergic/Immunologic: no urticaria, no wheezing, no persistent infections, no angioedema Exam - Constitutional Vitals: Temp Pulse Resp BP Pulse Ox 74 23 159/85 94 03/04/21 18:01 03/04/21 18:01 03/04/21 18:01 03/04/21 18:01 General appearance: Present: mild distress, obese - EENT Eyes: Present: PERRL ENT: hearing intact, clear oral mucosa - Neck Neck: Present: supple, normal ROM - Respiratory Respiratory effort: normal Respiratory: bilateral: CTA - Cardiovascular Heart Sounds: Present: S1 & S2. Absent: rub, click - Extremities Extremities: pulses symmetrical, No edema Peripheral Pulses: within normal limits - Abdominal General gastrointestinal: Present: soft, non-tender, non-distended, normal bowel sounds Male genitourinary: Present: normal - Integumentary Integumentary: Present: clear, warm, dry - Musculoskeletal Musculoskeletal: gait normal, strength equal bilaterally - Psychiatric Psychiatric: appropriate mood/affect, intact judgment & insight - Neurologic Neurologic: CNII-XII intact, moves all extremities Results - Labs CBC & Chem 7: 03/04/21 09:35 03/04/21 09:35 Labs: Abnormal lab results 03/04/21 03/04/21 Range/Units 09:35 09:35 WBC 22.3 H (4.5-11.0) K/mm3 RBC 5.34 H (3.65-5.03) M/mm3 Hgb 17.0 H (11.8-15.2) gm/dl Hct 50.1 H (35.5-45.6) % Seg Neuts % (Manual) 85.0 H (40.0-70.0) % Lymphocytes % (Manual) 5.0 L (13.4-35.0) % Monocytes % (Manual) 10.0 H (0.0-7.3) % Seg Neutrophils # Man 19.0 H (1.8-7.7) K/mm3 Lymphocytes # (Manual) 1.1 L (1.2-5.4) K/mm3 Monocytes # (Manual) 2.2 H (0.0-0.8) K/mm3 Carbon Dioxide 21 L (22-30) mmol/L Glucose 162 H (75-100) mg/dL Assessment and Plan - Patient Problems (1) Acute urinary retention Current Visit: Yes Status: Acute Plan to address problem: Alfredo catheter placed in the emergency department, suspected secondary to BPH, DC planning with Alfredo leg bag, outpatient urology follow-up (2) Constipation Current Visit: Yes Status: Acute Qualifiers: Constipation type: unspecified constipation type Qualified Code(s): K59.00 - Constipation, unspecified Plan to address problem: Bowel regimen, supportive care, (3) Leukocytosis Current Visit: Yes Status: Acute Plan to address problem: CBC, CMP, chest x-ray, urinalysis, empiric IV antibiotic therapy. No source of infection identified. (4) Volume depletion Current Visit: Yes Status: Acute Plan to address problem: IV fluid resuscitation therapy, monitor urine output every shift, encourage free water intake. (5) Parkinson disease Current Visit: Yes Status: Acute Plan to address problem: Continue medical management. Outpatient neurology follow-up. (6) Obesity (BMI 30.0-34.9) Current Visit: Yes Status: Acute Plan to address problem: Balanced diet, increase physical activity discharge, supportive care. (7) DVT prophylaxis Current Visit: Yes Status: Acute Plan to address problem: SCDs bilateral lower extremities while in bed, patient is ambulatory (8) Advance care planning Current Visit: Yes Status: Acute Plan to address problem: Disease education conducted, care plan discussed, diagnoses discussed, prognosis discussed, patient is full code, patient knowledges understanding and agree with care plan.
[2021-03-04] MEDS ORDERED: NON-FORMULARY EACH (Levetiracetam [Keppra Tab] 750 MG Tablet) PO SCH (22:00)
[2021-03-04] MEDS: FAMOTIDINE 20 MG TAB PO SCH (23:19)
[2021-03-04] MEDS: SENNOSIDES 8.6 MG TAB PO SCH (23:19)
[2021-03-04] MEDS: levETIRAcetam 500 MG TAB PO SCH (23:19)
[2021-03-04] MEDS: DOCUSATE SODIUM 100 MG CAP PO SCH (23:19)
[2021-03-04] MEDS: carvediloL 12.5 MG TAB PO SCH (23:20)
[2021-03-04] MEDS: SODIUM CHLORIDE 0.9% 1000 ML 1,000 ML IV SCH (23:21)
[2021-03-05 08:32] LABS: Basophils % (Auto) 0.2 % (0.0-1.8); Eosinophils # (Auto) 0.1 K/mm3 (0.0-0.4); Eosinophils % (Auto) 0.6 % (0.0-4.3); Hematocrit 45.3 % (35.5-45.6); Hemoglobin 15.2 gm/dl (11.8-15.2); Lymphocytes # (Auto) 1.2 K/mm3 (1.2-5.4); Lymphocytes % (Auto) 7.2 % (13.4-35.0); Mean Corpuscular HGB Conc 34 % (32-34); Mean Corpuscular Volume 95 fl (84-94); Monocytes # (Auto) 1.8 K/mm3 (0.0-0.8); Monocytes % (Auto) 10.4 % (0.0-7.3); Platelet Count 178 K/mm3 (140-440)
[2021-03-05 09:03] LABS: Alanine Aminotransferase 23 units/L (7-56); Albumin 3.6 g/dL (3.9-5); BUN/Creatinine Ratio 17; Blood Urea Nitrogen 15 mg/dL (9-20); Hemolysis Index 22
[2021-03-05] MEDS: amLODIPine 10 MG TAB PO SCH (09:03)
[2021-03-05] MEDS: levETIRAcetam 500 MG TAB PO SCH ×2 (09:04→21:11)
[2021-03-05] MEDS: carvediloL 12.5 MG TAB PO SCH ×2 (09:04→21:15)
[2021-03-05] MEDS: ASPIRIN EC 81 MG TAB PO SCH (09:04)
[2021-03-05] MEDS: FAMOTIDINE 20 MG TAB PO SCH ×2 (09:05→21:11)
[2021-03-05] MEDS: DOCUSATE SODIUM 100 MG CAP PO SCH ×2 (09:05→21:10)
[2021-03-05] MEDS: SENNOSIDES 8.6 MG TAB PO SCH ×2 (09:05→21:10)
[2021-03-05] MEDS: TAMSULOSIN 0.4 MG CAP PO SCH (09:05)
[2021-03-05] MEDS: MEMANTINE 5 MG TAB PO SCH ×3 (09:09→21:10)
[2021-03-05] MEDS ORDERED: SODIUM CHLORIDE 0.9% 1000 ML 1,000 ML IV ONE (11:00)
--- NOTE | 2021-03-05 11:11 | Progress Note ---
Assessment and Plan Assessment and plan: 65 YO Male with Parkinsons Disease, HTN, BPH,HLD, GERD, Obesity presents to ED for evaluation. Patient reports "I am constipated, and I cannot urinate". Patient states that he has experienced chronic constipation over the past 1 month with persistently worsening symptoms over the same timeframe. Patient also reports that he has been unable to urinate for the past 2 days. EMS was notified and upon arrival the patient was found to be in distress and subsequently transported to [facility] for further care and evaluation of the aforementioned symptoms. The patient was seen and evaluated in the emergency department. All lab and imaging studies reviewed. Patient underwent CT scan of the abdomen pelvis and was found to have retained stool consistent with chronic constipation, as well as urinary retention. Patient underwent placement of Alfredo catheter. Patient also found to have volume depletion, as well as leukocytosis. Patient placed in observation status and admitted to medical floor for further care and evaluation. Patient treated with IV fluid resuscitation therapy, empiric IV antibiotic therapy for leukocytosis. Patient denies fever, chills, chest pain, palpitation, productive cough, skin rash, recent contact, or known exposure to COVID-19. Prior admission on 04/20/2019 reviewed. All medication listed at time of admission has been reconciled. Advanced care planning conducted in ED. 03/05: Continue supportive care, given soap sod enema, will add lactulose. Leukocytosis could be secondary reactive nature. Monitor. CM management (1) Acute urinary retention Current Visit: Yes Status: Acute Plan to address problem: Alfredo catheter placed in the emergency department, suspected secondary to BPH, DC planning with Alfredo leg bag, outpatient urology follow-up (2) Constipation Current Visit: Yes Status: Acute Qualifiers: Constipation type: unspecified constipation type Qualified Code(s): K59.00 - Constipation, unspecified Plan to address problem: Bowel regimen, supportive care, (3) Leukocytosis Current Visit: Yes Status: Acute Plan to address problem: CBC, CMP, chest x-ray, urinalysis, empiric IV antibiotic therapy. No source of infection identified. (4) Volume depletion Current Visit: Yes Status: Acute Plan to address problem: IV fluid resuscitation therapy, monitor urine output every shift, encourage free water intake. (5) Parkinson disease Current Visit: Yes Status: Acute Plan to address problem: Continue medical management. Outpatient neurology follow-up. (6) Obesity (BMI 30.0-34.9) Current Visit: Yes Status: Acute Plan to address problem: Balanced diet, increase physical activity discharge, supportive care. (7) DVT prophylaxis Current Visit: Yes Status: Acute Plan to address problem: SCDs bilateral lower extremities while in bed, patient is ambulatory (8) Advance care planning Current Visit: Yes Status: Acute Plan to address problem: Disease education conducted, care plan discussed, diagnoses discussed, prognosis discussed, patient is full code, patient knowledges understanding and agree with care plan. History Interval history: Patient seen and examined very poor historian says he had did have a little bit of a bowel movement but not significant he also stated that he has not urinated. Hospitalist Physical - Physical exam Narrative exam: VITAL SIGNS: Reviewed. GENERAL: The patient appears normally developed, Vital signs as documented. HEAD: No signs of head trauma. EYES: Pupils are equal. Extraocular motions intact. EARS: Hearing grossly intact. MOUTH: Oropharynx is normal. NECK: No adenopathy, no JVD. CHEST: Chest with clear breath sounds bilaterally. No wheezes, rales, or rhonchi. CARDIAC: Regular rate and rhythm. S1 and S2, without murmurs, gallops, or rubs. VASCULAR: No Edema. Peripheral pulses normal and equal in all extremities. ABDOMEN: Large central pannus soft, non tender and non distended. No rebound or guarding, and no masses palpated. Bowel Sounds normal. MUSCULOSKELETAL: Good range of motion of all major joints. Extremities without clubbing, cyanosis or edema. NEUROLOGIC EXAM: Alert and oriented x 3 No focal sensory or strength deficits. Speech normal. Follows commands. PSYCHIATRIC: Mood normal. SKIN: detail exam as documented in skin assessment - Constitutional Vitals: Temp Pulse Resp BP Pulse Ox 98.1 F 64 24 128/69 94 03/05/21 10:47 03/05/21 10:47 03/05/21 10:47 03/05/21 10:47 03/05/21 10:47 General appearance: Present: mild distress, obese Results - Labs CBC & Chem 7: 03/05/21 07:17 03/05/21 07:17 Labs: Laboratory Last Values WBC 17.2 K/mm3 (4.5-11.0) H 03/05/21 07:17 RBC 4.80 M/mm3 (3.65-5.03) 03/05/21 07:17 Hgb 15.2 gm/dl (11.8-15.2) 03/05/21 07:17 Hct 45.3 % (35.5-45.6) 03/05/21 07:17 MCV 95 fl (84-94) H 03/05/21 07:17 MCH 32 pg (28-32) 03/05/21 07:17 MCHC 34 % (32-34) 03/05/21 07:17 RDW 14.0 % (13.2-15.2) 03/05/21 07:17 Plt Count 178 K/mm3 (140-440) 03/05/21 07:17 Lymph % (Auto) 7.2 % (13.4-35.0) L 03/05/21 07:17 [place] % (Auto) 10.4 % (0.0-7.3) H 03/05/21 07:17 Eos % (Auto) 0.6 % (0.0-4.3) 03/05/21 07:17 Baso % (Auto) 0.2 % (0.0-1.8) 03/05/21 07:17 Lymph # (Auto) 1.2 K/mm3 (1.2-5.4) 03/05/21 07:17 [place] # (Auto) 1.8 K/mm3 (0.0-0.8) H 03/05/21 07:17 Eos # (Auto) 0.1 K/mm3 (0.0-0.4) 03/05/21 07:17 Baso # (Auto) 0.0 K/mm3 (0.0-0.1) 03/05/21 07:17 Add Manual Diff Complete 03/04/21 09:35 Total Counted 100 03/04/21 09:35 Seg Neutrophils % 81.6 % (40.0-70.0) H 03/05/21 07:17 Seg Neuts % (Manual) 85.0 % (40.0-70.0) H 03/04/21 09:35 Lymphocytes % (Manual) 5.0 % (13.4-35.0) L 03/04/21 09:35 Monocytes % (Manual) 10.0 % (0.0-7.3) H 03/04/21 09:35 Nucleated RBC % Not Reportable 03/04/21 09:35 Seg Neutrophils # 14.1 K/mm3 (1.8-7.7) H 03/05/21 07:17 Seg Neutrophils # Man 19.0 K/mm3 (1.8-7.7) H 03/04/21 09:35 Band Neutrophils # 0.0 K/mm3 03/04/21 09:35 Lymphocytes # (Manual) 1.1 K/mm3 (1.2-5.4) L 03/04/21 09:35 Abs React Lymphs (Man) 0.0 K/mm3 03/04/21 09:35 Monocytes # (Manual) 2.2 K/mm3 (0.0-0.8) H 03/04/21 09:35 Eosinophils # (Manual) 0.0 K/mm3 (0.0-0.4) 03/04/21 09:35 Basophils # (Manual) 0.0 K/mm3 (0.0-0.1) 03/04/21 09:35 Metamyelocytes # 0.0 K/mm3 03/04/21 09:35 Myelocytes # 0.0 K/mm3 03/04/21 09:35 Promyelocytes # 0.0 K/mm3 03/04/21 09:35 Blast Cells # 0.0 K/mm3 03/04/21 09:35 WBC Morphology Not Reportable 03/04/21 09:35 WBC Morphology TNR 03/04/21 09:35 Hypersegmented Neuts Not Reportable 03/04/21 09:35 Hyposegmented Neuts Not Reportable 03/04/21 09:35 Hypogranular Neuts Not Reportable 03/04/21 09:35 Smudge Cells Not Reportable 03/04/21 09:35 Toxic Granulation Not Reportable 03/04/21 09:35 Toxic Vacuolation Not Reportable 03/04/21 09:35 Dohle Bodies Not Reportable 03/04/21 09:35 Pelger-Huet Anomaly Not Reportable 03/04/21 09:35 Espinoza Rods Not Reportable 03/04/21 09:35 Platelet Estimate Consistent w auto 03/04/21 09:35 Clumped Platelets Not Reportable 03/04/21 09:35 Plt Clumps, EDTA Not Reportable 03/04/21 09:35 Large Platelets Not Reportable 03/04/21 09:35 Giant Platelets Not Reportable 03/04/21 09:35 Platelet Satelliting Not Reportable 03/04/21 09:35 Plt Morphology Comment Not Reportable 03/04/21 09:35 RBC Morphology Normal 03/04/21 09:35 Dimorphic RBCs Not Reportable 03/04/21 09:35 Polychromasia Not Reportable 03/04/21 09:35 Hypochromasia Not Reportable 03/04/21 09:35 Poikilocytosis Not Reportable 03/04/21 09:35 Anisocytosis Not Reportable 03/04/21 09:35 Microcytosis Not Reportable 03/04/21 09:35 Macrocytosis Not Reportable 03/04/21 09:35 Spherocytes Not Reportable 03/04/21 09:35 Pappenheimer Bodies Not Reportable 03/04/21 09:35 Sickle Cells Not Reportable 03/04/21 09:35 Target Cells Not Reportable 03/04/21 09:35 Tear Drop Cells Not Reportable 03/04/21 09:35 Ovalocytes Not Reportable 03/04/21 09:35 Helmet Cells Not Reportable 03/04/21 09:35 [place] Bodies Not Reportable 03/04/21 09:35 [place] Rings Not Reportable 03/04/21 09:35 Jocy Cells Not Reportable 03/04/21 09:35 Bite Cells Not Reportable 03/04/21 09:35 Crenated Cell Not Reportable 03/04/21 09:35 Elliptocytes Not Reportable 03/04/21 09:35 Acanthocytes (Spur) Not Reportable 03/04/21 09:35 Rouleaux Not Reportable 03/04/21 09:35 Hemoglobin C Crystals Not Reportable 03/04/21 09:35 Schistocytes Not Reportable 03/04/21 09:35 Malaria parasites Not Reportable 03/04/21 09:35 Errol Bodies Not Reportable 03/04/21 09:35 Hem Pathologist Commnt No 03/04/21 09:35 Sodium 139 mmol/L (137-145) 03/05/21 07:17 Potassium 4.1 mmol/L (3.6-5.0) 03/05/21 07:17 Chloride 103.5 mmol/L (98-107) 03/05/21 07:17 Carbon Dioxide 21 mmol/L (22-30) L 03/05/21 07:17 Anion Gap 19 mmol/L 03/05/21 07:17 BUN 15 mg/dL (9-20) 03/05/21 07:17 Creatinine 0.9 mg/dL (0.8-1.3) 03/05/21 07:17 Estimated GFR > 60 ml/min 03/05/21 07:17 BUN/Creatinine Ratio 17 % 03/05/21 07:17 Glucose 112 mg/dL (75-100) H 03/05/21 07:17 Lactic Acid 1.00 mmol/L (0.7-2.0) 03/04/21 15:24 Calcium 9.0 mg/dL (8.4-10.2) 03/05/21 07:17 Total Bilirubin 0.80 mg/dL (0.1-1.2) 03/05/21 07:17 Direct Bilirubin 0.2 mg/dL (0-0.2) 03/04/21 09:35 Indirect Bilirubin 0.9 mg/dL 03/04/21 09:35 AST 12 units/L (5-40) 03/05/21 07:17 ALT 23 units/L (7-56) 03/05/21 07:17 Alkaline Phosphatase 91 units/L (35-129) 03/05/21 07:17 Total Protein 7.0 g/dL (6.3-8.2) 03/05/21 07:17 Albumin 3.6 g/dL (3.9-5) L 03/05/21 07:17 Albumin/Globulin Ratio 1.1 % 03/05/21 07:17 Urine Color Yellow (Yellow) 03/04/21 Unknown Urine Turbidity Clear (Clear) 03/04/21 Unknown Urine pH 5.0 (5.0-7.0) 03/04/21 Unknown Ur Specific [place] 1.024 (1.003-1.030) 03/04/21 Unknown Urine Protein 30 mg/dl mg/dL (Negative) 03/04/21 Unknown Urine Glucose (UA) Neg mg/dL (Negative) 03/04/21 Unknown Urine Ketones Neg mg/dL (Negative) 03/04/21 Unknown Urine Blood Sm (Negative) 03/04/21 Unknown Urine Nitrite Neg (Negative) 03/04/21 Unknown Urine Bilirubin Neg (Negative) 03/04/21 Unknown Urine Urobilinogen < 2.0 mg/dL (<2.0) 03/04/21 Unknown Ur Leukocyte Esterase Neg (Negative) 03/04/21 Unknown Urine WBC (Auto) 1.0 /HPF (0.0-6.0) 03/04/21 Unknown Urine RBC (Auto) 1.0 /HPF (0.0-6.0) 03/04/21 Unknown Urine Mucus 1+ /HPF 03/04/21 Unknown Microbiology: Microbiology 03/04/21 11:22 Peripheral/Venous Blood Culture - Preliminary Culture in Progress 03/04/21 11:16 Peripheral/Venous Blood Culture - Preliminary Culture in Progress Alfredo/IV: Voiding Method Condom Catheter Active Medications - Current Medications Current Medications: Generic Name Dose Route Start Last Admin Trade Name Freq PRN Reason Stop Dose Admin Acetaminophen 650 mg 03/04/21 16:00 03/05/21 09:05 Acetaminophen 325 Mg Tab PO 650 mg Q4H PRN Administration Pain MILD(1-3)/Fever >100.5/MORALES Albuterol 2.5 mg 03/04/21 16:00 Albuterol 2.5 Mg/3 Ml Nebu IH Q4HRT PRN Shortness Of Breath Amlodipine Besylate 10 mg 03/05/21 10:00 03/05/21 09:03 Amlodipine 10 Mg Tab PO Not Given QDAY [facility] Aspirin 81 mg 03/05/21 10:00 03/05/21 09:04 Aspirin Ec 81 Mg Tab PO 81 mg DAILY [facility] Administration Atorvastatin Calcium 40 mg 03/04/21 22:00 03/04/21 23:20 Atorvastatin 40 Mg Tab PO 40 mg QHS [facility] Administration Bisacodyl 10 mg 03/05/21 10:00 03/05/21 09:27 Bisacodyl 10 Mg Rect Supp VT 10 mg QDAY PRN Administration Constipation Carvedilol 12.5 mg 03/04/21 22:00 03/05/21 09:04 Carvedilol 12.5 Mg Tab PO Not Given BID [facility] Docusate Sodium 100 mg 03/04/21 22:00 03/05/21 09:05 Docusate Sodium 100 Mg Cap PO 100 mg BID [facility] Administration Famotidine 20 mg 03/04/21 22:00 03/05/21 09:05 Famotidine 20 Mg Tab PO 20 mg BID [facility] Administration Sodium Chloride 1,000 mls @ 75 mls/hr 03/04/21 21:00 03/04/21 23:21 Nacl 0.9% 1000 Ml IV 75 mls/hr DIRECT [facility] Administration Sodium Chloride 1,000 mls @ 999 mls/hr 03/05/21 11:00 Nacl 0.9% 1000 Ml IV 03/05/21 12:00 BOLUS ONE Levetiracetam 750 mg 03/04/21 22:00 03/05/21 09:04 Levetiracetam 500 Mg Tab PO 750 mg BID [facility] Administration Memantine 5 mg 03/04/21 22:00 03/05/21 09:09 Memantine 5 Mg Tab PO Not Given BID [facility] Ondansetron HCl 4 mg 03/04/21 16:00 Ondansetron 4 Mg/2 Ml Inj IV Q8H PRN Nausea And Vomiting Senna 8.6 mg 03/04/21 22:00 03/05/21 09:05 Sennosides 8.6 Mg Tab PO 8.6 mg Q12HR [facility] Administration Sodium Chloride 10 ml 03/04/21 22:00 03/05/21 09:08 Sodium Chloride 0.9% 10 Ml Flush Syringe IV 10 ml BID [facility] Administration Sodium Chloride 10 ml 03/04/21 16:00 Sodium Chloride 0.9% 10 Ml Flush Syringe IV PRN PRN LINE FLUSH Tamsulosin HCl 0.4 mg 03/05/21 10:00 03/05/21 09:05 Tamsulosin 0.4 Mg Cap PO 0.4 mg DAILY [facility] Administration
[2021-03-05] MEDS: LACTULOSE 20 GM/30 ML ORAL LIQD PO SCH ×3 (12:33→23:30)
[2021-03-05] MEDS: SODIUM CHLORIDE 0.9% 1000 ML 1,000 ML IV SCH (21:13)
[2021-03-06 08:24] LABS: Hematocrit 42.7 % (35.5-45.6); Hemoglobin 14.2 gm/dl (11.8-15.2); Mean Corpuscular HGB Conc 33 % (32-34); Mean Corpuscular Volume 96 fl (84-94); Platelet Count 154 K/mm3 (140-440); Red Blood Count 4.47 M/mm3 (3.65-5.03); Red Cell Distribution Width 14.1 % (13.2-15.2)
[2021-03-06 08:49] LABS: BUN/Creatinine Ratio 16; Blood Urea Nitrogen 14 mg/dL (9-20); Calcium 8.3 mg/dL (8.4-10.2); Hemolysis Index 25
[2021-03-06] MEDS: levETIRAcetam 500 MG TAB PO SCH ×2 (09:55→21:47)
[2021-03-06] MEDS: amLODIPine 10 MG TAB PO SCH (09:55)
[2021-03-06] MEDS: TAMSULOSIN 0.4 MG CAP PO SCH (09:56)
[2021-03-06] MEDS: FAMOTIDINE 20 MG TAB PO SCH ×2 (09:56→21:47)
[2021-03-06] MEDS: DOCUSATE SODIUM 100 MG CAP PO SCH ×2 (09:56→21:47)
[2021-03-06] MEDS: ASPIRIN EC 81 MG TAB PO SCH (09:56)
[2021-03-06] MEDS: MEMANTINE 5 MG TAB PO SCH ×2 (09:56→21:47)
[2021-03-06] MEDS: SENNOSIDES 8.6 MG TAB PO SCH ×2 (09:56→21:47)
[2021-03-06] MEDS: carvediloL 12.5 MG TAB PO SCH ×2 (09:56→21:48)
--- NOTE | 2021-03-06 11:25 | Discharge Summary ---
Providers - Providers Date of Admission: 03/04/21 15:21 Attending physician: BRIAN MORALES MD 03/05/21 11:10 Consult to Case Management [CONS] Routine Services Needed at Discharge: Learning Support Resource Room Teacher Notified:: NO Additional Physician Instructions: HATES THE PRISON HE IS IN 03/06/21 09:03 Occupational Therapy Evaluate and Treat [CONS] Routine Comment: Reason For Exam: debility Physical Therapy Evaluation and Treat [CONS] Routine Comment: Reason For Exam: debility Primary care physician: [employer] Hospitalization Reason for admission: Severe constipation Condition: Stable Hospital course: 65 YO Male with Parkinsons Disease, HTN, BPH,HLD, GERD, Obesity presents to ED for evaluation. Patient reports "I am constipated, and I cannot urinate". Patient states that he has experienced chronic constipation over the past 1 month with persistently worsening symptoms over the same timeframe. Patient also reports that he has been unable to urinate for the past 2 days. EMS was notified and upon arrival the patient was found to be in distress and subsequently transported to [facility] for further care and evaluation of the aforementioned symptoms. The patient was seen and evaluated in the emergency department. All lab and imaging studies reviewed. Patient underwent CT scan of the abdomen pelvis and was found to have retained stool consistent with chronic constipation, as well as urinary retention. Patient underwent placement of Alfredo catheter. Patient also found to have volume depletion, as well as leukocytosis. Patient placed in observation status and admitted to medical floor for further care and evaluation. Patient treated with IV fluid resuscitation therapy, empiric IV antibiotic therapy for leukocytosis. Patient denies fever, chills, chest pain, palpitation, productive cough, skin rash, recent contact, or known exposure to COVID-19. Prior admission on 04/20/2019 reviewed. All medication listed at time of admission has been reconciled. Advanced care planning conducted in ED. 03/05: Continue supportive care, given soap sod enema, will add lactulose. Leukocytosis could be secondary reactive nature. Monitor. CM management 03/06: Morning patient is reportedly had moved multiple bowel movements with the addition of lactulose. He expresses displeasure at the facility where he is has been discussed with case management. He is otherwise clinically stable for discharge no evidence of infection is noted. Stool softener regimen will be given on discharge and also lactulose. He also moved his urine. Ambulates with a walker will have PT evaluation prior to discharge (1) Acute urinary retention Current Visit: Yes Status: Acute Plan to address problem: Alfredo catheter placed in the emergency department, suspected secondary to BPH, DC planning with Alfredo leg bag, outpatient urology follow-up (2) severe constipation Current Visit: Yes Status: Acute Qualifiers: Constipation type: unspecified constipation type Qualified Code(s): K59.00 - Constipation, unspecified Plan to address problem: Bowel regimen, supportive care, (3) Leukocytosis Current Visit: Yes Status: Acute Plan to address problem: CBC, CMP, chest x-ray, urinalysis, empiric IV antibiotic therapy. No source of infection identified. (4) Volume depletion Current Visit: Yes Status: Acute Plan to address problem: IV fluid resuscitation therapy, monitor urine output every shift, encourage free water intake. (5) Parkinson disease Current Visit: Yes Status: Acute Plan to address problem: Continue medical management. Outpatient neurology follow-up. (6) Obesity (BMI 30.0-34.9) Current Visit: Yes Status: Acute Plan to address problem: Balanced diet, increase physical activity discharge, supportive care. (7) SIRS Disposition: DC-01 TO HOME OR SELFCARE Final Discharge Diagnosis (Prints w/discharge instructions): Severe constipation with SIRS Time spent for discharge: 35 mins Core Measure Documentation - Palliative Care Palliative Care/ Comfort Measures: Not Applicable - Core Measures Any of the following diagnoses?: none Exam - Physical Exam Narrative exam: VITAL SIGNS: Reviewed. GENERAL: The patient appears normally developed, Vital signs as documented. HEAD: No signs of head trauma. EYES: Pupils are equal. Extraocular motions intact. EARS: Hearing grossly intact. MOUTH: Oropharynx is normal. NECK: No adenopathy, no JVD. CHEST: Chest with clear breath sounds bilaterally. No wheezes, rales, or rhonchi. CARDIAC: Regular rate and rhythm. S1 and S2, without murmurs, gallops, or rubs. VASCULAR: No Edema. Peripheral pulses normal and equal in all extremities. ABDOMEN: Large central pannus soft, non tender and non distended. No rebound or guarding, and no masses palpated. Bowel Sounds normal. MUSCULOSKELETAL: Good range of motion of all major joints. Extremities without clubbing, cyanosis or edema. NEUROLOGIC EXAM: Alert and oriented x 3 No focal sensory or strength deficits. Speech normal. Follows commands. PSYCHIATRIC: Mood normal. SKIN: detail exam as documented in skin assessment - Constitutional Vitals: Temp Pulse Resp BP Pulse Ox 98.2 F 50 L 20 142/82 93 03/06/21 04:44 03/06/21 04:44 03/06/21 04:44 03/06/21 04:44 03/06/21 04:44 Plan Activity: advance as tolerated, fall precautions Diet: low fat Special Instructions: record daily weights, record daily BP diary, physical therapy, occupational therapy, home health RN Follow up with: PRIMARY CARE,MD [Primary Care Provider] - 3-5 Days Prescriptions: Docusate Sodium [Colace CAP] 100 mg PO BID #60 capsule bisacodyL [Dulcolax suppos] 10 mg TN QDAY PRN #30 supp.rect PRN Reason: Constipation Lactulose [Kristalose] 20 gm PO BID #60 packet Sennosides Tab [Senokot] 8.6 mg PO Q12HR PRN #30 tablet PRN Reason: Constipation
[2021-03-06] MEDS: SODIUM CHLORIDE 0.9% 1000 ML 1,000 ML IV SCH ×2 (14:18→21:48)
[2021-03-07] MEDS: amLODIPine 10 MG TAB PO SCH (10:06)
[2021-03-07] MEDS: DOCUSATE SODIUM 100 MG CAP PO SCH ×2 (10:06→22:38)
[2021-03-07] MEDS: carvediloL 12.5 MG TAB PO SCH ×2 (10:06→22:39)
[2021-03-07] MEDS: levETIRAcetam 500 MG TAB PO SCH ×2 (10:06→22:42)
[2021-03-07] MEDS: SENNOSIDES 8.6 MG TAB PO SCH ×2 (10:06→22:38)
[2021-03-07] MEDS: ASPIRIN EC 81 MG TAB PO SCH (10:06)
[2021-03-07] MEDS: TAMSULOSIN 0.4 MG CAP PO SCH (10:07)
[2021-03-07] MEDS: MEMANTINE 5 MG TAB PO SCH ×2 (10:07→22:38)
[2021-03-07] MEDS: FAMOTIDINE 20 MG TAB PO SCH ×2 (10:07→22:38)
--- NOTE | 2021-03-07 12:48 | Progress Note ---
Assessment and Plan Assessment and plan: 65 YO Male with Parkinsons Disease, HTN, BPH,HLD, GERD, Obesity presents to ED for evaluation. Patient reports "I am constipated, and I cannot urinate". Patient states that he has experienced chronic constipation over the past 1 month with persistently worsening symptoms over the same timeframe. Patient also reports that he has been unable to urinate for the past 2 days. EMS was notified and upon arrival the patient was found to be in distress and subsequently transported to [facility] for further care and evaluation of the aforementioned symptoms. The patient was seen and evaluated in the emergency department. All lab and imaging studies reviewed. Patient underwent CT scan of the abdomen pelvis and was found to have retained stool consistent with chronic constipation, as well as urinary retention. Patient underwent placement of Alfredo catheter. Patient also found to have volume depletion, as well as leukocytosis. Patient placed in observation status and admitted to medical floor for further care and evaluation. Patient treated with IV fluid resuscitation therapy, empiric IV antibiotic therapy for leukocytosis. Patient denies fever, chills, chest pain, palpitation, productive cough, skin rash, recent contact, or known exposure to COVID-19. Prior admission on 04/20/2019 reviewed. All medication listed at time of admission has been reconciled. Advanced care planning conducted in ED. 03/05: Continue supportive care, given soap sod enema, will add lactulose. Leukocytosis could be secondary reactive nature. Monitor. CM management. 03/07; patient was evaluated by physical therapy and recommend rehab. Pending placement. (1) Acute urinary retention Current Visit: Yes Status: Acute Plan to address problem: Alfredo catheter placed in the emergency department, suspected secondary to BPH, DC planning with Alfredo leg bag, outpatient urology follow-up (2) Constipation Current Visit: Yes Status: Acute Qualifiers: Constipation type: unspecified constipation type Qualified Code(s): K59.00 - Constipation, unspecified Plan to address problem: Bowel regimen, supportive care, (3) Leukocytosis Current Visit: Yes Status: Acute Plan to address problem: CBC, CMP, chest x-ray, urinalysis, empiric IV antibiotic therapy. No source of infection identified. (4) Volume depletion Current Visit: Yes Status: Acute Plan to address problem: IV fluid resuscitation therapy, monitor urine output every shift, encourage free water intake. (5) Parkinson disease Current Visit: Yes Status: Acute Plan to address problem: Continue medical management. Outpatient neurology follow-up. (6) Obesity (BMI 30.0-34.9) Current Visit: Yes Status: Acute Plan to address problem: Balanced diet, increase physical activity discharge, supportive care. (7) DVT prophylaxis Current Visit: Yes Status: Acute Plan to address problem: SCDs bilateral lower extremities while in bed, patient is ambulatory (8) Advance care planning Current Visit: Yes Status: Acute Plan to address problem: Disease education conducted, care plan discussed, diagnoses discussed, prognosis discussed, patient is full code, patient knowledges understanding and agree with care plan. History Interval history: Patient was seen and evaluated this morning Patient was evaluated by physical therapy, has difficulty getting out of bed Hospitalist Physical - Physical exam Narrative exam: Not in cardiopulmonary distress. The patient is morbidly obese. Vital signs as documented. Head exam is unremarkable. No scleral icterus . Neck is without jugular venous distension, thyromegaly, or carotid bruits. Lungs are clear to auscultation. Cardiac exam reveals regular rate and Rhythm. Abdominal exam reveals normal bowel sounds, nontender, no organomegaly. Extremities are nonedematous and both femoral and pedal pulses are normal. POOL COORDINATOR: Alert and oriented 3. No focal weakness. - Constitutional Vitals: Temp Pulse Resp BP Pulse Ox 97.9 F 53 L 18 125/72 92 03/07/21 04:39 03/07/21 04:39 03/07/21 04:39 03/07/21 04:39 03/07/21 04:39 General appearance: Present: mild distress, obese Results - Labs CBC & Chem 7: 03/06/21 07:37 03/06/21 07:37 Labs: Laboratory Last Values WBC 12.6 K/mm3 (4.5-11.0) H 03/06/21 07:37 RBC 4.47 M/mm3 (3.65-5.03) 03/06/21 07:37 Hgb 14.2 gm/dl (11.8-15.2) 03/06/21 07:37 Hct 42.7 % (35.5-45.6) 03/06/21 07:37 MCV 96 fl (84-94) H 03/06/21 07:37 MCH 32 pg (28-32) 03/06/21 07:37 MCHC 33 % (32-34) 03/06/21 07:37 RDW 14.1 % (13.2-15.2) 03/06/21 07:37 Plt Count 154 K/mm3 (140-440) 03/06/21 07:37 Lymph % (Auto) 7.2 % (13.4-35.0) L 03/05/21 07:17 Benzie % (Auto) 10.4 % (0.0-7.3) H 03/05/21 07:17 Eos % (Auto) 0.6 % (0.0-4.3) 03/05/21 07:17 Baso % (Auto) 0.2 % (0.0-1.8) 03/05/21 07:17 Lymph # (Auto) 1.2 K/mm3 (1.2-5.4) 03/05/21 07:17 Benzie # (Auto) 1.8 K/mm3 (0.0-0.8) H 03/05/21 07:17 Eos # (Auto) 0.1 K/mm3 (0.0-0.4) 03/05/21 07:17 Baso # (Auto) 0.0 K/mm3 (0.0-0.1) 03/05/21 07:17 Add Manual Diff Complete 03/04/21 09:35 Total Counted 100 03/04/21 09:35 Seg Neutrophils % 81.6 % (40.0-70.0) H 03/05/21 07:17 Seg Neuts % (Manual) 85.0 % (40.0-70.0) H 03/04/21 09:35 Lymphocytes % (Manual) 5.0 % (13.4-35.0) L 03/04/21 09:35 Monocytes % (Manual) 10.0 % (0.0-7.3) H 03/04/21 09:35 Nucleated RBC % Not Reportable 03/04/21 09:35 Seg Neutrophils # 14.1 K/mm3 (1.8-7.7) H 03/05/21 07:17 Seg Neutrophils # Man 19.0 K/mm3 (1.8-7.7) H 03/04/21 09:35 Band Neutrophils # 0.0 K/mm3 03/04/21 09:35 Lymphocytes # (Manual) 1.1 K/mm3 (1.2-5.4) L 03/04/21 09:35 Abs React Lymphs (Man) 0.0 K/mm3 03/04/21 09:35 Monocytes # (Manual) 2.2 K/mm3 (0.0-0.8) H 03/04/21 09:35 Eosinophils # (Manual) 0.0 K/mm3 (0.0-0.4) 03/04/21 09:35 Basophils # (Manual) 0.0 K/mm3 (0.0-0.1) 03/04/21 09:35 Metamyelocytes # 0.0 K/mm3 03/04/21 09:35 Myelocytes # 0.0 K/mm3 03/04/21 09:35 Promyelocytes # 0.0 K/mm3 03/04/21 09:35 Blast Cells # 0.0 K/mm3 03/04/21 09:35 WBC Morphology Not Reportable 03/04/21 09:35 WBC Morphology TNR 03/04/21 09:35 Hypersegmented Neuts Not Reportable 03/04/21 09:35 Hyposegmented Neuts Not Reportable 03/04/21 09:35 Hypogranular Neuts Not Reportable 03/04/21 09:35 Smudge Cells Not Reportable 03/04/21 09:35 Toxic Granulation Not Reportable 03/04/21 09:35 Toxic Vacuolation Not Reportable 03/04/21 09:35 Dohle Bodies Not Reportable 03/04/21 09:35 Pelger-Huet Anomaly Not Reportable 03/04/21 09:35 Espinoza Rods Not Reportable 03/04/21 09:35 Platelet Estimate Consistent w auto 03/04/21 09:35 Clumped Platelets Not Reportable 03/04/21 09:35 Plt Clumps, EDTA Not Reportable 03/04/21 09:35 Large Platelets Not Reportable 03/04/21 09:35 Giant Platelets Not Reportable 03/04/21 09:35 Platelet Satelliting Not Reportable 03/04/21 09:35 Plt Morphology Comment Not Reportable 03/04/21 09:35 RBC Morphology Normal 03/04/21 09:35 Dimorphic RBCs Not Reportable 03/04/21 09:35 Polychromasia Not Reportable 03/04/21 09:35 Hypochromasia Not Reportable 03/04/21 09:35 Poikilocytosis Not Reportable 03/04/21 09:35 Anisocytosis Not Reportable 03/04/21 09:35 Microcytosis Not Reportable 03/04/21 09:35 Macrocytosis Not Reportable 03/04/21 09:35 Spherocytes Not Reportable 03/04/21 09:35 Pappenheimer Bodies Not Reportable 03/04/21 09:35 Sickle Cells Not Reportable 03/04/21 09:35 Target Cells Not Reportable 03/04/21 09:35 Tear Drop Cells Not Reportable 03/04/21 09:35 Ovalocytes Not Reportable 03/04/21 09:35 Helmet Cells Not Reportable 03/04/21 09:35 [place] Bodies Not Reportable 03/04/21 09:35 [place] Rings Not Reportable 03/04/21 09:35 [place] Cells Not Reportable 03/04/21 09:35 Bite Cells Not Reportable 03/04/21 09:35 Crenated Cell Not Reportable 03/04/21 09:35 Elliptocytes Not Reportable 03/04/21 09:35 Acanthocytes (Spur) Not Reportable 03/04/21 09:35 Rouleaux Not Reportable 03/04/21 09:35 Hemoglobin C Crystals Not Reportable 03/04/21 09:35 Schistocytes Not Reportable 03/04/21 09:35 Malaria parasites Not Reportable 03/04/21 09:35 Errol Bodies Not Reportable 03/04/21 09:35 Hem Pathologist Commnt No 03/04/21 09:35 Sodium 141 mmol/L (137-145) 03/06/21 07:37 Potassium 4.3 mmol/L (3.6-5.0) 03/06/21 07:37 Chloride 109.1 mmol/L (98-107) H 03/06/21 07:37 Carbon Dioxide 22 mmol/L (22-30) 03/06/21 07:37 Anion Gap 14 mmol/L 03/06/21 07:37 BUN 14 mg/dL (9-20) 03/06/21 07:37 Creatinine 0.9 mg/dL (0.8-1.3) 03/06/21 07:37 Estimated GFR > 60 ml/min 03/06/21 07:37 BUN/Creatinine Ratio 16 % 03/06/21 07:37 Glucose 104 mg/dL (75-100) H 03/06/21 07:37 Lactic Acid 1.00 mmol/L (0.7-2.0) 03/04/21 15:24 Calcium 8.3 mg/dL (8.4-10.2) L 03/06/21 07:37 Total Bilirubin 0.80 mg/dL (0.1-1.2) 03/05/21 07:17 Direct Bilirubin 0.2 mg/dL (0-0.2) 03/04/21 09:35 Indirect Bilirubin 0.9 mg/dL 03/04/21 09:35 AST 12 units/L (5-40) 03/05/21 07:17 ALT 23 units/L (7-56) 03/05/21 07:17 Alkaline Phosphatase 91 units/L (35-129) 03/05/21 07:17 Total Protein 7.0 g/dL (6.3-8.2) 03/05/21 07:17 Albumin 3.6 g/dL (3.9-5) L 03/05/21 07:17 Albumin/Globulin Ratio 1.1 % 03/05/21 07:17 Urine Color Yellow (Yellow) 03/04/21 Unknown Urine Turbidity Clear (Clear) 03/04/21 Unknown Urine pH 5.0 (5.0-7.0) 03/04/21 Unknown Ur Specific [place] 1.024 (1.003-1.030) 03/04/21 Unknown Urine Protein 30 mg/dl mg/dL (Negative) 03/04/21 Unknown Urine Glucose (UA) Neg mg/dL (Negative) 03/04/21 Unknown Urine Ketones Neg mg/dL (Negative) 03/04/21 Unknown Urine Blood Sm (Negative) 03/04/21 Unknown Urine Nitrite Neg (Negative) 03/04/21 Unknown Urine Bilirubin Neg (Negative) 03/04/21 Unknown Urine Urobilinogen < 2.0 mg/dL (<2.0) 03/04/21 Unknown Ur Leukocyte Esterase Neg (Negative) 03/04/21 Unknown Urine WBC (Auto) 1.0 /HPF (0.0-6.0) 03/04/21 Unknown Urine RBC (Auto) 1.0 /HPF (0.0-6.0) 03/04/21 Unknown Urine Mucus 1+ /HPF 03/04/21 Unknown Microbiology: Microbiology 03/04/21 11:22 Peripheral/Venous Blood Culture - Preliminary NO GROWTH AFTER 72 HOURS 03/04/21 11:16 Peripheral/Venous Blood Culture - Preliminary NO GROWTH AFTER 72 HOURS Alfredo/IV: Voiding Method Incontinent Active Medications - Current Medications Current Medications: Generic Name Dose Route Start Last Admin Trade Name Freq PRN Reason Stop Dose Admin Acetaminophen 650 mg 03/04/21 16:00 03/05/21 09:05 Acetaminophen 325 Mg Tab PO 650 mg Q4H PRN Administration Pain MILD(1-3)/Fever >100.5/MORALES Albuterol 2.5 mg 03/04/21 16:00 Albuterol 2.5 Mg/3 Ml Nebu IH Q4HRT PRN Shortness Of Breath Amlodipine Besylate 10 mg 03/05/21 10:00 03/07/21 10:06 Amlodipine 10 Mg Tab PO 10 mg QDAY DARCI Administration Aspirin 81 mg 03/05/21 10:00 03/07/21 10:06 Aspirin Ec 81 Mg Tab PO 81 mg DAILY DARCI Administration Atorvastatin Calcium 40 mg 03/04/21 22:00 03/06/21 21:47 Atorvastatin 40 Mg Tab PO 40 mg QHS DARCI Administration Bisacodyl 10 mg 03/05/21 10:00 03/05/21 09:27 Bisacodyl 10 Mg Rect Supp GA 10 mg QDAY PRN Administration Constipation Carvedilol 12.5 mg 03/04/21 22:00 03/07/21 10:06 Carvedilol 12.5 Mg Tab PO 12.5 mg BID DARCI Administration Docusate Sodium 100 mg 03/04/21 22:00 03/07/21 10:06 Docusate Sodium 100 Mg Cap PO 100 mg BID DARCI Administration Famotidine 20 mg 03/04/21 22:00 03/07/21 10:07 Famotidine 20 Mg Tab PO 20 mg BID DARCI Administration Sodium Chloride 1,000 mls @ 75 mls/hr 03/04/21 21:00 03/06/21 21:48 Nacl 0.9% 1000 Ml IV 75 mls/hr DIRECT DARCI Administration Levetiracetam 750 mg 03/04/21 22:00 03/07/21 10:06 Levetiracetam 500 Mg Tab PO 750 mg BID DARCI Administration Memantine 5 mg 03/04/21 22:00 03/07/21 10:07 Memantine 5 Mg Tab PO 5 mg BID DARCI Administration Ondansetron HCl 4 mg 03/04/21 16:00 Ondansetron 4 Mg/2 Ml Inj IV Q8H PRN Nausea And Vomiting Senna 8.6 mg 03/04/21 22:00 03/07/21 10:06 Sennosides 8.6 Mg Tab PO 8.6 mg Q12HR DARCI Administration Sodium Chloride 10 ml 03/04/21 22:00 03/07/21 10:08 Sodium Chloride 0.9% 10 Ml Flush Syringe IV 10 ml BID DARCI Administration Sodium Chloride 10 ml 03/04/21 16:00 Sodium Chloride 0.9% 10 Ml Flush Syringe IV PRN PRN LINE FLUSH Tamsulosin HCl 0.4 mg 03/05/21 10:00 03/07/21 10:07 Tamsulosin 0.4 Mg Cap PO 0.4 mg DAILY DARCI Administration
[2021-03-08] MEDS: TAMSULOSIN 0.4 MG CAP PO SCH (10:04)
[2021-03-08] MEDS: ASPIRIN EC 81 MG TAB PO SCH (10:04)
[2021-03-08] MEDS: DOCUSATE SODIUM 100 MG CAP PO SCH ×2 (10:04→22:13)
[2021-03-08] MEDS: carvediloL 12.5 MG TAB PO SCH ×2 (10:05→22:15)
[2021-03-08] MEDS: FAMOTIDINE 20 MG TAB PO SCH ×2 (10:05→22:14)
[2021-03-08] MEDS: amLODIPine 10 MG TAB PO SCH (10:05)
[2021-03-08] MEDS: MEMANTINE 5 MG TAB PO SCH ×2 (10:05→22:14)
[2021-03-08] MEDS: levETIRAcetam 500 MG TAB PO SCH ×2 (10:05→22:14)
[2021-03-08] MEDS: SENNOSIDES 8.6 MG TAB PO SCH ×2 (10:35→22:13)
[2021-03-08] MEDS: SODIUM CHLORIDE 0.9% 1000 ML 1,000 ML IV SCH (13:17)
--- NOTE | 2021-03-08 16:34 | Progress Note ---
Assessment and Plan Assessment and plan: 65 YO Male with Parkinsons Disease, HTN, BPH,HLD, GERD, Obesity presents to ED for evaluation. Patient reports "I am constipated, and I cannot urinate". Patient states that he has experienced chronic constipation over the past 1 month with persistently worsening symptoms over the same timeframe. Patient also reports that he has been unable to urinate for the past 2 days. EMS was notified and upon arrival the patient was found to be in distress and subsequently transported to [facility] for further care and evaluation of the aforementioned symptoms. The patient was seen and evaluated in the emergency department. All lab and imaging studies reviewed. Patient underwent CT scan of the abdomen pelvis and was found to have retained stool consistent with chronic constipation, as well as urinary retention. Patient underwent placement of Alfredo catheter. Patient also found to have volume depletion, as well as leukocytosis. Patient placed in observation status and admitted to medical floor for further care and evaluation. Patient treated with IV fluid resuscitation therapy, empiric IV antibiotic therapy for leukocytosis. Patient denies fever, chills, chest pain, palpitation, productive cough, skin rash, recent contact, or known exposure to COVID-19. Prior admission on 04/20/2019 reviewed. All medication listed at time of admission has been reconciled. Advanced care planning conducted in ED. 03/05: Continue supportive care, given soap sod enema, will add lactulose. Leukocytosis could be secondary reactive nature. Monitor. CM management. 03/07; patient was evaluated by physical therapy and recommend rehab. Pending placement. 03/08: Patient is stable. Discharge deferred on 03/06 as PT recommended rehab placement. Has good urine output. Leukocytosis spontaneously resolving without any current antibiotic therapy. BP stable with sinus bradycardia 45-55 on Coreg. Asymptomatic. (1) Acute urinary retention Current Visit: Yes Status: Acute Plan to address problem: Alfredo catheter placed in the emergency department, suspected secondary to BPH, DC planning with Alfredo leg bag, outpatient urology follow-up (2) Constipation Current Visit: Yes Status: Acute Qualifiers: Constipation type: unspecified constipation type Qualified Code(s): K59.00 - Constipation, unspecified Plan to address problem: Bowel regimen, supportive care, (3) Leukocytosis Current Visit: Yes Status: Acute Plan to address problem: CBC, CMP, chest x-ray, urinalysis, empiric IV antibiotic therapy. No source of infection identified. (4) Volume depletion Current Visit: Yes Status: Acute Plan to address problem: IV fluid resuscitation therapy, monitor urine output every shift, encourage free water intake. (5) Parkinson disease Current Visit: Yes Status: Acute Plan to address problem: Continue medical management. Outpatient neurology follow-up. (6) Obesity (BMI 30.0-34.9) Current Visit: Yes Status: Acute Plan to address problem: Balanced diet, increase physical activity discharge, supportive care. (7) DVT prophylaxis Current Visit: Yes Status: Acute Plan to address problem: SCDs bilateral lower extremities while in bed, patient is ambulatory (8) Advance care planning Current Visit: Yes Status: Acute Plan to address problem: Disease education conducted, care plan discussed, diagnoses discussed, prognosis discussed, patient is full code, patient knowledges understanding and agree with care plan. History Interval history: Patient is a poor historian. Patient says that he was not able to void urine for 3 days and was brought to ED for evaluation. He denies having history of voiding difficulty prostate problems. He sounds like he had some pain with voiding but no longer now. A Alfredo was placed for urinary retention. He has good urine output. Afebrile. Has sinus bradycardia 47-55 on Coreg but BP okay. Leukocytosis is resolving progressively but not currently on antibiotic. Patient discharge was held on 03/06 as PT recommended rehab placement. Patient denies chills, nausea, abdominal pain flank pain. Hospitalist Physical - Constitutional Vitals: Temp Pulse Resp BP Pulse Ox 97.8 F 52 L 20 135/84 93 03/08/21 02:59 03/08/21 02:59 03/08/21 09:00 03/08/21 02:59 03/08/21 02:59 General appearance: Present: no acute distress, obese - EENT Eyes: Present: PERRL, EOM intact ENT: clear oral mucosa - Neck Neck: Present: supple, other (No JVD) - Respiratory Respiratory effort: normal Respiratory: bilateral: CTA - Cardiovascular Rhythm: regular Heart Sounds: Absent: gallop - Extremities Extremities: No edema - Abdominal General gastrointestinal: soft, non-tender, other (No CVA tenderness. Alfredo in place.) - Integumentary Integumentary: Absent: rash - Neurologic Neurologic: moves all extremities Results - Labs CBC & Chem 7: 07/12/21 07:37 03/06/21 07:37 Labs: Laboratory Last Values WBC 12.6 K/mm3 (4.5-11.0) H 03/06/21 07:37 RBC 4.47 M/mm3 (3.65-5.03) 03/06/21 07:37 Hgb 14.2 gm/dl (11.8-15.2) 03/06/21 07:37 Hct 42.7 % (35.5-45.6) 03/06/21 07:37 MCV 96 fl (84-94) H 03/06/21 07:37 MCH 32 pg (28-32) 03/06/21 07:37 MCHC 33 % (32-34) 03/06/21 07:37 RDW 14.1 % (13.2-15.2) 03/06/21 07:37 Plt Count 154 K/mm3 (140-440) 03/06/21 07:37 Lymph % (Auto) 7.2 % (13.4-35.0) L 03/05/21 07:17 [place] % (Auto) 10.4 % (0.0-7.3) H 03/05/21 07:17 Eos % (Auto) 0.6 % (0.0-4.3) 03/05/21 07:17 Baso % (Auto) 0.2 % (0.0-1.8) 03/05/21 07:17 Lymph # (Auto) 1.2 K/mm3 (1.2-5.4) 03/05/21 07:17 [place] # (Auto) 1.8 K/mm3 (0.0-0.8) H 03/05/21 07:17 Eos # (Auto) 0.1 K/mm3 (0.0-0.4) 03/05/21 07:17 Baso # (Auto) 0.0 K/mm3 (0.0-0.1) 03/05/21 07:17 Add Manual Diff Complete 03/04/21 09:35 Total Counted 100 03/04/21 09:35 Seg Neutrophils % 81.6 % (40.0-70.0) H 03/05/21 07:17 Seg Neuts % (Manual) 85.0 % (40.0-70.0) H 03/04/21 09:35 Lymphocytes % (Manual) 5.0 % (13.4-35.0) L 03/04/21 09:35 Monocytes % (Manual) 10.0 % (0.0-7.3) H 03/04/21 09:35 Nucleated RBC % Not Reportable 03/04/21 09:35 Seg Neutrophils # 14.1 K/mm3 (1.8-7.7) H 03/05/21 07:17 Seg Neutrophils # Man 19.0 K/mm3 (1.8-7.7) H 03/04/21 09:35 Band Neutrophils # 0.0 K/mm3 03/04/21 09:35 Lymphocytes # (Manual) 1.1 K/mm3 (1.2-5.4) L 03/04/21 09:35 Abs React Lymphs (Man) 0.0 K/mm3 03/04/21 09:35 Monocytes # (Manual) 2.2 K/mm3 (0.0-0.8) H 03/04/21 09:35 Eosinophils # (Manual) 0.0 K/mm3 (0.0-0.4) 03/04/21 09:35 Basophils # (Manual) 0.0 K/mm3 (0.0-0.1) 03/04/21 09:35 Metamyelocytes # 0.0 K/mm3 03/04/21 09:35 Myelocytes # 0.0 K/mm3 03/04/21 09:35 Promyelocytes # 0.0 K/mm3 03/04/21 09:35 Blast Cells # 0.0 K/mm3 03/04/21 09:35 WBC Morphology Not Reportable 03/04/21 09:35 WBC Morphology TNR 03/04/21 09:35 Hypersegmented Neuts Not Reportable 03/04/21 09:35 Hyposegmented Neuts Not Reportable 03/04/21 09:35 Hypogranular Neuts Not Reportable 03/04/21 09:35 Smudge Cells Not Reportable 03/04/21 09:35 Toxic Granulation Not Reportable 03/04/21 09:35 Toxic Vacuolation Not Reportable 03/04/21 09:35 Dohle Bodies Not Reportable 03/04/21 09:35 Pelger-Huet Anomaly Not Reportable 03/04/21 09:35 Espinoza Rods Not Reportable 03/04/21 09:35 Platelet Estimate Consistent w auto 03/04/21 09:35 Clumped Platelets Not Reportable 03/04/21 09:35 Plt Clumps, EDTA Not Reportable 03/04/21 09:35 Large Platelets Not Reportable 03/04/21 09:35 Giant Platelets Not Reportable 03/04/21 09:35 Platelet Satelliting Not Reportable 03/04/21 09:35 Plt Morphology Comment Not Reportable 03/04/21 09:35 RBC Morphology Normal 03/04/21 09:35 Dimorphic RBCs Not Reportable 03/04/21 09:35 Polychromasia Not Reportable 03/04/21 09:35 Hypochromasia Not Reportable 03/04/21 09:35 Poikilocytosis Not Reportable 03/04/21 09:35 Anisocytosis Not Reportable 03/04/21 09:35 Microcytosis Not Reportable 03/04/21 09:35 Macrocytosis Not Reportable 03/04/21 09:35 Spherocytes Not Reportable 03/04/21 09:35 Pappenheimer Bodies Not Reportable 03/04/21 09:35 Sickle Cells Not Reportable 03/04/21 09:35 Target Cells Not Reportable 03/04/21 09:35 Tear Drop Cells Not Reportable 03/04/21 09:35 Ovalocytes Not Reportable 03/04/21 09:35 Helmet Cells Not Reportable 03/04/21 09:35 [place] Bodies Not Reportable 03/04/21 09:35 [place] Rings Not Reportable 03/04/21 09:35 [place] Cells Not Reportable 03/04/21 09:35 Bite Cells Not Reportable 03/04/21 09:35 Crenated Cell Not Reportable 03/04/21 09:35 Elliptocytes Not Reportable 03/04/21 09:35 Acanthocytes (Spur) Not Reportable 03/04/21 09:35 Rouleaux Not Reportable 03/04/21 09:35 Hemoglobin C Crystals Not Reportable 03/04/21 09:35 Schistocytes Not Reportable 03/04/21 09:35 Malaria parasites Not Reportable 03/04/21 09:35 [place] Bodies Not Reportable 03/04/21 09:35 Hem Pathologist Commnt No 03/04/21 09:35 Sodium 141 mmol/L (137-145) 03/06/21 07:37 Potassium 4.3 mmol/L (3.6-5.0) 03/06/21 07:37 Chloride 109.1 mmol/L (98-107) H 03/06/21 07:37 Carbon Dioxide 22 mmol/L (22-30) 03/06/21 07:37 Anion Gap 14 mmol/L 03/06/21 07:37 BUN 14 mg/dL (9-20) 03/06/21 07:37 Creatinine 0.9 mg/dL (0.8-1.3) 03/06/21 07:37 Estimated GFR > 60 ml/min 03/06/21 07:37 BUN/Creatinine Ratio 16 % 03/06/21 07:37 Glucose 104 mg/dL (75-100) H 03/06/21 07:37 Lactic Acid 1.00 mmol/L (0.7-2.0) 03/04/21 15:24 Calcium 8.3 mg/dL (8.4-10.2) L 03/06/21 07:37 Total Bilirubin 0.80 mg/dL (0.1-1.2) 03/05/21 07:17 Direct Bilirubin 0.2 mg/dL (0-0.2) 03/04/21 09:35 Indirect Bilirubin 0.9 mg/dL 03/04/21 09:35 AST 12 units/L (5-40) 03/05/21 07:17 ALT 23 units/L (7-56) 03/05/21 07:17 Alkaline Phosphatase 91 units/L (35-129) 03/05/21 07:17 Total Protein 7.0 g/dL (6.3-8.2) 03/05/21 07:17 Albumin 3.6 g/dL (3.9-5) L 03/05/21 07:17 Albumin/Globulin Ratio 1.1 % 03/05/21 07:17 Urine Color Yellow (Yellow) 03/04/21 Unknown Urine Turbidity Clear (Clear) 03/04/21 Unknown Urine pH 5.0 (5.0-7.0) 03/04/21 Unknown Ur Specific [place] 1.024 (1.003-1.030) 03/04/21 Unknown Urine Protein 30 mg/dl mg/dL (Negative) 03/04/21 Unknown Urine Glucose (UA) Neg mg/dL (Negative) 03/04/21 Unknown Urine Ketones Neg mg/dL (Negative) 03/04/21 Unknown Urine Blood Sm (Negative) 03/04/21 Unknown Urine Nitrite Neg (Negative) 03/04/21 Unknown Urine Bilirubin Neg (Negative) 03/04/21 Unknown Urine Urobilinogen < 2.0 mg/dL (<2.0) 03/04/21 Unknown Ur Leukocyte Esterase Neg (Negative) 03/04/21 Unknown Urine WBC (Auto) 1.0 /HPF (0.0-6.0) 03/04/21 Unknown Urine RBC (Auto) 1.0 /HPF (0.0-6.0) 03/04/21 Unknown Urine Mucus 1+ /HPF 03/04/21 Unknown Microbiology: Microbiology 03/04/21 11:22 Peripheral/Venous Blood Culture - Preliminary NO GROWTH AFTER 4 DAYS 03/04/21 11:16 Peripheral/Venous Blood Culture - Preliminary NO GROWTH AFTER 4 DAYS Alfredo/IV: Voiding Method Urinal Active Medications - Current Medications Current Medications: Generic Name Dose Route Start Last Admin Trade Name Freq PRN Reason Stop Dose Admin Acetaminophen 650 mg 03/04/21 16:00 03/05/21 09:05 Acetaminophen 325 Mg Tab PO 650 mg Q4H PRN Administration Pain MILD(1-3)/Fever >100.5/MORALES Albuterol 2.5 mg 03/04/21 16:00 Albuterol 2.5 Mg/3 Ml Nebu IH Q4HRT PRN Shortness Of Breath Amlodipine Besylate 10 mg 03/05/21 10:00 03/08/21 10:05 Amlodipine 10 Mg Tab PO 10 mg QDAY DARCI Administration Aspirin 81 mg 03/05/21 10:00 03/08/21 10:04 Aspirin Ec 81 Mg Tab PO 81 mg DAILY DARCI Administration Atorvastatin Calcium 40 mg 03/04/21 22:00 03/07/21 22:44 Atorvastatin 40 Mg Tab PO 40 mg QHS DARCI Administration Bisacodyl 10 mg 03/05/21 10:00 03/05/21 09:27 Bisacodyl 10 Mg Rect Supp [place] 10 mg QDAY PRN Administration Constipation Carvedilol 12.5 mg 03/04/21 22:00 03/08/21 10:05 Carvedilol 12.5 Mg Tab PO 12.5 mg BID DARCI Administration Docusate Sodium 100 mg 03/04/21 22:00 03/08/21 10:04 Docusate Sodium 100 Mg Cap PO 100 mg BID DARCI Administration Famotidine 20 mg 03/04/21 22:00 03/08/21 10:05 Famotidine 20 Mg Tab PO 20 mg BID DARCI Administration Sodium Chloride 1,000 mls @ 75 mls/hr 03/04/21 21:00 03/08/21 13:17 Nacl 0.9% 1000 Ml IV 75 mls/hr DIRECT DARCI Administration Levetiracetam 750 mg 03/04/21 22:00 03/08/21 10:05 Levetiracetam 500 Mg Tab PO 750 mg BID DARCI Administration Memantine 5 mg 03/04/21 22:00 03/08/21 10:05 Memantine 5 Mg Tab PO 5 mg BID DARCI Administration Ondansetron HCl 4 mg 03/04/21 16:00 Ondansetron 4 Mg/2 Ml Inj IV Q8H PRN Nausea And Vomiting Senna 8.6 mg 03/04/21 22:00 03/08/21 10:35 Sennosides 8.6 Mg Tab PO 8.6 mg Q12HR DARCI Administration Sodium Chloride 10 ml 03/04/21 22:00 03/08/21 10:06 Sodium Chloride 0.9% 10 Ml Flush Syringe IV 10 ml BID DARCI Administration Sodium Chloride 10 ml 03/04/21 16:00 Sodium Chloride 0.9% 10 Ml Flush Syringe IV PRN PRN LINE FLUSH Tamsulosin HCl 0.4 mg 03/05/21 10:00 03/08/21 10:04 Tamsulosin 0.4 Mg Cap PO 0.4 mg DAILY DARCI Administration
[2021-03-09] MEDS: SODIUM CHLORIDE 0.9% 1000 ML 1,000 ML IV SCH (02:50)
[2021-03-09] MEDS: levETIRAcetam 500 MG TAB PO SCH ×2 (10:01→22:21)
[2021-03-09] MEDS: TAMSULOSIN 0.4 MG CAP PO SCH (10:01)
[2021-03-09] MEDS: MEMANTINE 5 MG TAB PO SCH ×2 (10:01→22:22)
[2021-03-09] MEDS: FAMOTIDINE 20 MG TAB PO SCH ×2 (10:01→22:22)
[2021-03-09] MEDS: carvediloL 12.5 MG TAB PO SCH ×2 (10:02→22:26)
[2021-03-09] MEDS: amLODIPine 10 MG TAB PO SCH (10:02)
[2021-03-09] MEDS: SENNOSIDES 8.6 MG TAB PO SCH ×2 (10:03→22:22)
[2021-03-09] MEDS: ASPIRIN EC 81 MG TAB PO SCH (10:03)
[2021-03-09] MEDS: DOCUSATE SODIUM 100 MG CAP PO SCH ×2 (10:03→22:20)
--- NOTE | 2021-03-09 17:22 | Progress Note ---
Assessment and Plan Assessment and plan: 65 YO Male with Parkinsons Disease, HTN, BPH,HLD, GERD, Obesity presents to ED for evaluation. Patient reports "I am constipated, and I cannot urinate". Patient states that he has experienced chronic constipation over the past 1 month with persistently worsening symptoms over the same timeframe. Patient also reports that he has been unable to urinate for the past 2 days. EMS was notified and upon arrival the patient was found to be in distress and subsequently transported to [facility] for further care and evaluation of the aforementioned symptoms. The patient was seen and evaluated in the emergency department. All lab and imaging studies reviewed. Patient underwent CT scan of the abdomen pelvis and was found to have retained stool consistent with chronic constipation, as well as urinary retention. Patient underwent placement of Alfredo catheter. Patient also found to have volume depletion, as well as leukocytosis. Patient placed in observation status and admitted to medical floor for further care and evaluation. Patient treated with IV fluid resuscitation therapy, empiric IV antibiotic therapy for leukocytosis. Patient denies fever, chills, chest pain, palpitation, productive cough, skin rash, recent contact, or known exposure to COVID-19. Prior admission on 04/20/2019 reviewed. All medication listed at time of admission has been reconciled. Advanced care planning conducted in ED. 03/05: Continue supportive care, given soap sod enema, will add lactulose. Leukocytosis could be secondary reactive nature. Monitor. CM management. 03/07; patient was evaluated by physical therapy and recommend rehab. Pending placement. 03/08: Patient is stable. Discharge deferred on 03/06 as PT recommended rehab placement. Has good urine output. Leukocytosis spontaneously resolving without any current antibiotic therapy. BP stable with sinus bradycardia 45-55 on Coreg. Asymptomatic. 03/09: Patient is stable. Sinus bradycardia heart rate 55 and Coreg. Asymptomatic. BP okay. Alfredo in place with good urine output. Awaiting subacute rehab placement. (1) Acute urinary retention Current Visit: Yes Status: Acute Plan to address problem: Alfredo catheter placed in the emergency department, suspected secondary to BPH, DC planning with Alfredo leg bag, outpatient urology follow-up (2) Constipation Current Visit: Yes Status: Acute Qualifiers: Constipation type: unspecified constipation type Qualified Code(s): K59.00 - Constipation, unspecified Plan to address problem: Bowel regimen, supportive care, (3) Leukocytosis Current Visit: Yes Status: Acute Plan to address problem: CBC, CMP, chest x-ray, urinalysis, empiric IV antibiotic therapy. No source of infection identified. (4) Volume depletion Current Visit: Yes Status: Acute Plan to address problem: IV fluid resuscitation therapy, monitor urine output every shift, encourage free water intake. (5) Parkinson disease Current Visit: Yes Status: Acute Plan to address problem: Continue medical management. Outpatient neurology follow-up. (6) Obesity (BMI 30.0-34.9) Current Visit: Yes Status: Acute Plan to address problem: Balanced diet, increase physical activity discharge, supportive care. (7) DVT prophylaxis Current Visit: Yes Status: Acute Plan to address problem: SCDs bilateral lower extremities while in bed, patient is ambulatory (8) Advance care planning Current Visit: Yes Status: Acute Plan to address problem: Disease education conducted, care plan discussed, diagnoses discussed, prognosis discussed, patient is full code, patient knowledges understanding and agree with care plan. History Interval history: Patient is admitted with acute urinary retention and Alfredo catheter placed. Has good urine output. Lives at halfway. Physical therapy recommended subacute rehab. Awaiting placement. Is stable other than having a sinus bradycardia on Coreg. Blood pressure is stable. Afebrile. Hospitalist Physical - Constitutional Vitals: Temp Pulse Resp BP Pulse Ox 98.4 F 55 L 20 164/86 93 03/09/21 03:57 03/09/21 10:02 03/09/21 03:57 03/09/21 10:02 03/09/21 03:57 General appearance: Present: no acute distress, obese - EENT Eyes: Present: PERRL, EOM intact ENT: clear oral mucosa - Neck Neck: Present: supple, other (No JVD) - Respiratory Respiratory effort: normal Respiratory: bilateral: CTA - Cardiovascular Rhythm: other (Sinus bradycardia 45-55.) - Extremities Extremities: No edema - Abdominal General gastrointestinal: soft, non-tender, other (Obese abdomen. Alfredo catheter in place.) - Integumentary Integumentary: Absent: rash - Neurologic Neurologic: moves all extremities Results - Labs CBC & Chem 7: 03/06/21 07:37 03/06/21 07:37 Labs: Laboratory Last Values WBC 12.6 K/mm3 (4.5-11.0) H 03/06/21 07:37 RBC 4.47 M/mm3 (3.65-5.03) 03/06/21 07:37 Hgb 14.2 gm/dl (11.8-15.2) 03/06/21 07:37 Hct 42.7 % (35.5-45.6) 03/06/21 07:37 MCV 96 fl (84-94) H 03/06/21 07:37 MCH 32 pg (28-32) 03/06/21 07:37 MCHC 33 % (32-34) 03/06/21 07:37 RDW 14.1 % (13.2-15.2) 03/06/21 07:37 Plt Count 154 K/mm3 (140-440) 03/06/21 07:37 Lymph % (Auto) 7.2 % (13.4-35.0) L 03/05/21 07:17 [place] % (Auto) 10.4 % (0.0-7.3) H 03/05/21 07:17 Eos % (Auto) 0.6 % (0.0-4.3) 03/05/21 07:17 Baso % (Auto) 0.2 % (0.0-1.8) 03/05/21 07:17 Lymph # (Auto) 1.2 K/mm3 (1.2-5.4) 03/05/21 07:17 [place] # (Auto) 1.8 K/mm3 (0.0-0.8) H 03/05/21 07:17 Eos # (Auto) 0.1 K/mm3 (0.0-0.4) 03/05/21 07:17 Baso # (Auto) 0.0 K/mm3 (0.0-0.1) 03/05/21 07:17 Add Manual Diff Complete 03/04/21 09:35 Total Counted 100 03/04/21 09:35 Seg Neutrophils % 81.6 % (40.0-70.0) H 03/05/21 07:17 Seg Neuts % (Manual) 85.0 % (40.0-70.0) H 03/04/21 09:35 Lymphocytes % (Manual) 5.0 % (13.4-35.0) L 03/04/21 09:35 Monocytes % (Manual) 10.0 % (0.0-7.3) H 03/04/21 09:35 Nucleated RBC % Not Reportable 03/04/21 09:35 Seg Neutrophils # 14.1 K/mm3 (1.8-7.7) H 03/05/21 07:17 Seg Neutrophils # Man 19.0 K/mm3 (1.8-7.7) H 03/04/21 09:35 Band Neutrophils # 0.0 K/mm3 03/04/21 09:35 Lymphocytes # (Manual) 1.1 K/mm3 (1.2-5.4) L 03/04/21 09:35 Abs React Lymphs (Man) 0.0 K/mm3 03/04/21 09:35 Monocytes # (Manual) 2.2 K/mm3 (0.0-0.8) H 03/04/21 09:35 Eosinophils # (Manual) 0.0 K/mm3 (0.0-0.4) 03/04/21 09:35 Basophils # (Manual) 0.0 K/mm3 (0.0-0.1) 03/04/21 09:35 Metamyelocytes # 0.0 K/mm3 03/04/21 09:35 Myelocytes # 0.0 K/mm3 03/04/21 09:35 Promyelocytes # 0.0 K/mm3 03/04/21 09:35 Blast Cells # 0.0 K/mm3 03/04/21 09:35 WBC Morphology Not Reportable 03/04/21 09:35 WBC Morphology TNR 03/04/21 09:35 Hypersegmented Neuts Not Reportable 03/04/21 09:35 Hyposegmented Neuts Not Reportable 03/04/21 09:35 Hypogranular Neuts Not Reportable 03/04/21 09:35 Smudge Cells Not Reportable 03/04/21 09:35 Toxic Granulation Not Reportable 03/04/21 09:35 Toxic Vacuolation Not Reportable 03/04/21 09:35 Dohle Bodies Not Reportable 03/04/21 09:35 Pelger-Huet Anomaly Not Reportable 03/04/21 09:35 Espinoza Rods Not Reportable 03/04/21 09:35 Platelet Estimate Consistent w auto 03/04/21 09:35 Clumped Platelets Not Reportable 03/04/21 09:35 Plt Clumps, EDTA Not Reportable 03/04/21 09:35 Large Platelets Not Reportable 03/04/21 09:35 Giant Platelets Not Reportable 03/04/21 09:35 Platelet Satelliting Not Reportable 03/04/21 09:35 Plt Morphology Comment Not Reportable 03/04/21 09:35 RBC Morphology Normal 03/04/21 09:35 Dimorphic RBCs Not Reportable 03/04/21 09:35 Polychromasia Not Reportable 03/04/21 09:35 Hypochromasia Not Reportable 03/04/21 09:35 Poikilocytosis Not Reportable 03/04/21 09:35 Anisocytosis Not Reportable 03/04/21 09:35 Microcytosis Not Reportable 03/04/21 09:35 Macrocytosis Not Reportable 03/04/21 09:35 Spherocytes Not Reportable 03/04/21 09:35 Pappenheimer Bodies Not Reportable 03/04/21 09:35 Sickle Cells Not Reportable 03/04/21 09:35 Target Cells Not Reportable 03/04/21 09:35 Tear Drop Cells Not Reportable 03/04/21 09:35 Ovalocytes Not Reportable 03/04/21 09:35 Helmet Cells Not Reportable 03/04/21 09:35 [place] Bodies Not Reportable 03/04/21 09:35 [place] Rings Not Reportable 03/04/21 09:35 Jocy Cells Not Reportable 03/04/21 09:35 Bite Cells Not Reportable 03/04/21 09:35 Crenated Cell Not Reportable 03/04/21 09:35 Elliptocytes Not Reportable 03/04/21 09:35 Acanthocytes (Spur) Not Reportable 03/04/21 09:35 Rouleaux Not Reportable 03/04/21 09:35 Hemoglobin C Crystals Not Reportable 03/04/21 09:35 Schistocytes Not Reportable 03/04/21 09:35 Malaria parasites Not Reportable 03/04/21 09:35 Errol Bodies Not Reportable 03/04/21 09:35 Hem Pathologist Commnt No 03/04/21 09:35 Sodium 141 mmol/L (137-145) 03/06/21 07:37 Potassium 4.3 mmol/L (3.6-5.0) 03/06/21 07:37 Chloride 109.1 mmol/L (98-107) H 03/06/21 07:37 Carbon Dioxide 22 mmol/L (22-30) 03/06/21 07:37 Anion Gap 14 mmol/L 03/06/21 07:37 BUN 14 mg/dL (9-20) 03/06/21 07:37 Creatinine 0.9 mg/dL (0.8-1.3) 03/06/21 07:37 Estimated GFR > 60 ml/min 03/06/21 07:37 BUN/Creatinine Ratio 16 % 03/06/21 07:37 Glucose 104 mg/dL (75-100) H 03/06/21 07:37 Lactic Acid 1.00 mmol/L (0.7-2.0) 03/04/21 15:24 Calcium 8.3 mg/dL (8.4-10.2) L 03/06/21 07:37 Total Bilirubin 0.80 mg/dL (0.1-1.2) 03/05/21 07:17 Direct Bilirubin 0.2 mg/dL (0-0.2) 03/04/21 09:35 Indirect Bilirubin 0.9 mg/dL 03/04/21 09:35 AST 12 units/L (5-40) 03/05/21 07:17 ALT 23 units/L (7-56) 03/05/21 07:17 Alkaline Phosphatase 91 units/L (35-129) 03/05/21 07:17 Total Protein 7.0 g/dL (6.3-8.2) 03/05/21 07:17 Albumin 3.6 g/dL (3.9-5) L 03/05/21 07:17 Albumin/Globulin Ratio 1.1 % 03/05/21 07:17 Urine Color Yellow (Yellow) 03/04/21 Unknown Urine Turbidity Clear (Clear) 03/04/21 Unknown Urine pH 5.0 (5.0-7.0) 03/04/21 Unknown Ur Specific [place] 1.024 (1.003-1.030) 03/04/21 Unknown Urine Protein 30 mg/dl mg/dL (Negative) 03/04/21 Unknown Urine Glucose (UA) Neg mg/dL (Negative) 03/04/21 Unknown Urine Ketones Neg mg/dL (Negative) 03/04/21 Unknown Urine Blood Sm (Negative) 03/04/21 Unknown Urine Nitrite Neg (Negative) 03/04/21 Unknown Urine Bilirubin Neg (Negative) 03/04/21 Unknown Urine Urobilinogen < 2.0 mg/dL (<2.0) 03/04/21 Unknown Ur Leukocyte Esterase Neg (Negative) 03/04/21 Unknown Urine WBC (Auto) 1.0 /HPF (0.0-6.0) 03/04/21 Unknown Urine RBC (Auto) 1.0 /HPF (0.0-6.0) 03/04/21 Unknown Urine Mucus 1+ /HPF 03/04/21 Unknown Microbiology: Microbiology 03/04/21 11:22 Peripheral/Venous Blood Culture - Final NO GROWTH AFTER 5 DAYS 03/04/21 11:16 Peripheral/Venous Blood Culture - Final NO GROWTH AFTER 5 DAYS Alfredo/IV: Voiding Method Indwelling Catheter Active Medications - Current Medications Current Medications: Generic Name Dose Route Start Last Admin Trade Name Freq PRN Reason Stop Dose Admin Acetaminophen 650 mg 03/04/21 16:00 03/05/21 09:05 Acetaminophen 325 Mg Tab PO 650 mg Q4H PRN Administration Pain MILD(1-3)/Fever >100.5/MORALES Albuterol 2.5 mg 03/04/21 16:00 Albuterol 2.5 Mg/3 Ml Nebu IH Q4HRT PRN Shortness Of Breath Amlodipine Besylate 10 mg 03/05/21 10:00 03/09/21 10:02 Amlodipine 10 Mg Tab PO 10 mg QDAY DARCI Administration Aspirin 81 mg 03/05/21 10:00 03/09/21 10:03 Aspirin Ec 81 Mg Tab PO 81 mg DAILY DARCI Administration Atorvastatin Calcium 40 mg 03/04/21 22:00 03/08/21 22:14 Atorvastatin 40 Mg Tab PO 40 mg QHS DARCI Administration Bisacodyl 10 mg 03/05/21 10:00 03/05/21 09:27 Bisacodyl 10 Mg Rect Supp [place] 10 mg QDAY PRN Administration Constipation Carvedilol 12.5 mg 03/04/21 22:00 03/09/21 10:02 Carvedilol 12.5 Mg Tab PO 12.5 mg BID DRACI Administration Docusate Sodium 100 mg 03/04/21 22:00 03/09/21 10:03 Docusate Sodium 100 Mg Cap PO 100 mg BID DARCI Administration Famotidine 20 mg 03/04/21 22:00 03/09/21 10:01 Famotidine 20 Mg Tab PO 20 mg BID DARCI Administration Sodium Chloride 1,000 mls @ 75 mls/hr 03/04/21 21:00 03/09/21 02:50 Nacl 0.9% 1000 Ml IV 75 mls/hr DIRECT DARCI Administration Levetiracetam 750 mg 03/04/21 22:00 03/09/21 10:01 Levetiracetam 500 Mg Tab PO 750 mg BID DARCI Administration Memantine 5 mg 03/04/21 22:00 03/09/21 10:01 Memantine 5 Mg Tab PO 5 mg BID DARCI Administration Ondansetron HCl 4 mg 03/04/21 16:00 Ondansetron 4 Mg/2 Ml Inj IV Q8H PRN Nausea And Vomiting Senna 8.6 mg 03/04/21 22:00 03/09/21 10:03 Sennosides 8.6 Mg Tab PO 8.6 mg Q12HR DARCI Administration Sodium Chloride 10 ml 03/04/21 22:00 03/09/21 10:03 Sodium Chloride 0.9% 10 Ml Flush Syringe IV 10 ml BID DARCI Administration Sodium Chloride 10 ml 03/04/21 16:00 Sodium Chloride 0.9% 10 Ml Flush Syringe IV PRN PRN LINE FLUSH Tamsulosin HCl 0.4 mg 03/05/21 10:00 03/09/21 10:01 Tamsulosin 0.4 Mg Cap PO 0.4 mg DAILY DARCI Administration
[2021-03-10] MEDS: SODIUM CHLORIDE 0.9% 1000 ML 1,000 ML IV SCH (03:11)
[2021-03-10 08:45] LABS: Basophils # (Auto) 0.1 K/mm3 (0.0-0.1); Basophils % (Auto) 0.5 % (0.0-1.8); Eosinophils # (Auto) 0.3 K/mm3 (0.0-0.4); Eosinophils % (Auto) 2.8 % (0.0-4.3); Hematocrit 45.5 % (35.5-45.6); Hemoglobin 15.4 gm/dl (11.8-15.2); Lymphocytes # (Auto) 1.9 K/mm3 (1.2-5.4); Lymphocytes % (Auto) 15.3 % (13.4-35.0); Mean Corpuscular HGB Conc 34 % (32-34); Mean Corpuscular Volume 94 fl (84-94); Monocytes # (Auto) 1.1 K/mm3 (0.0-0.8); Monocytes % (Auto) 9.2 % (0.0-7.3); Platelet Count 188 K/mm3 (140-440); Red Blood Count 4.82 M/mm3 (3.65-5.03); Red Cell Distribution Width 13.7 % (13.2-15.2)
[2021-03-10 09:08] LABS: Alanine Aminotransferase 71 units/L (7-56); Albumin 3.7 g/dL (3.9-5); BUN/Creatinine Ratio 16; Blood Urea Nitrogen 13 mg/dL (9-20); Calcium 9.7 mg/dL (8.4-10.2); Hemolysis Index 12
[2021-03-10] MEDS: MEMANTINE 5 MG TAB PO SCH (10:10)
[2021-03-10] MEDS: ASPIRIN EC 81 MG TAB PO SCH (10:10)
[2021-03-10] MEDS: levETIRAcetam 500 MG TAB PO SCH (10:10)
[2021-03-10] MEDS: amLODIPine 10 MG TAB PO SCH (10:11)
[2021-03-10] MEDS: TAMSULOSIN 0.4 MG CAP PO SCH (10:11)
[2021-03-10] MEDS: carvediloL 12.5 MG TAB PO SCH (10:11)
[2021-03-10] MEDS: FAMOTIDINE 20 MG TAB PO SCH (10:11)
[2021-03-10] MEDS: SENNOSIDES 8.6 MG TAB PO SCH (10:11)
[2021-03-10] MEDS: DOCUSATE SODIUM 100 MG CAP PO SCH (10:11)
--- NOTE | 2021-03-10 17:21 | Progress Note ---
Hospitalist Physical - Constitutional Vitals: Temp Pulse Resp BP Pulse Ox 97.8 F 54 L 24 143/88 94 03/10/21 11:25 03/10/21 11:25 03/10/21 11:25 03/10/21 11:25 03/10/21 11:25 General appearance: Present: no acute distress, obese Results - Labs CBC & Chem 7: 03/10/21 07:58 03/10/21 07:58 Labs: Laboratory Last Values WBC 12.3 K/mm3 (4.5-11.0) H 03/10/21 07:58 RBC 4.82 M/mm3 (3.65-5.03) 03/10/21 07:58 Hgb 15.4 gm/dl (11.8-15.2) H 03/10/21 07:58 Hct 45.5 % (35.5-45.6) 03/10/21 07:58 MCV 94 fl (84-94) 03/10/21 07:58 MCH 32 pg (28-32) 03/10/21 07:58 MCHC 34 % (32-34) 03/10/21 07:58 RDW 13.7 % (13.2-15.2) 03/10/21 07:58 Plt Count 188 K/mm3 (140-440) 03/10/21 07:58 Lymph % (Auto) 15.3 % (13.4-35.0) 03/10/21 07:58 [place] % (Auto) 9.2 % (0.0-7.3) H 03/10/21 07:58 Eos % (Auto) 2.8 % (0.0-4.3) 03/10/21 07:58 Baso % (Auto) 0.5 % (0.0-1.8) 03/10/21 07:58 Lymph # (Auto) 1.9 K/mm3 (1.2-5.4) 03/10/21 07:58 [place] # (Auto) 1.1 K/mm3 (0.0-0.8) H 03/10/21 07:58 Eos # (Auto) 0.3 K/mm3 (0.0-0.4) 03/10/21 07:58 Baso # (Auto) 0.1 K/mm3 (0.0-0.1) 03/10/21 07:58 Add Manual Diff Complete 03/04/21 09:35 Total Counted 100 03/04/21 09:35 Seg Neutrophils % 72.2 % (40.0-70.0) H 03/10/21 07:58 Seg Neuts % (Manual) 85.0 % (40.0-70.0) H 03/04/21 09:35 Lymphocytes % (Manual) 5.0 % (13.4-35.0) L 03/04/21 09:35 Monocytes % (Manual) 10.0 % (0.0-7.3) H 03/04/21 09:35 Nucleated RBC % Not Reportable 03/04/21 09:35 Seg Neutrophils # 8.9 K/mm3 (1.8-7.7) H 03/10/21 07:58 Seg Neutrophils # Man 19.0 K/mm3 (1.8-7.7) H 03/04/21 09:35 Band Neutrophils # 0.0 K/mm3 03/04/21 09:35 Lymphocytes # (Manual) 1.1 K/mm3 (1.2-5.4) L 03/04/21 09:35 Abs React Lymphs (Man) 0.0 K/mm3 03/04/21 09:35 Monocytes # (Manual) 2.2 K/mm3 (0.0-0.8) H 03/04/21 09:35 Eosinophils # (Manual) 0.0 K/mm3 (0.0-0.4) 03/04/21 09:35 Basophils # (Manual) 0.0 K/mm3 (0.0-0.1) 03/04/21 09:35 Metamyelocytes # 0.0 K/mm3 03/04/21 09:35 Myelocytes # 0.0 K/mm3 03/04/21 09:35 Promyelocytes # 0.0 K/mm3 03/04/21 09:35 Blast Cells # 0.0 K/mm3 03/04/21 09:35 WBC Morphology Not Reportable 03/04/21 09:35 WBC Morphology TNR 03/04/21 09:35 Hypersegmented Neuts Not Reportable 03/04/21 09:35 Hyposegmented Neuts Not Reportable 03/04/21 09:35 Hypogranular Neuts Not Reportable 03/04/21 09:35 Smudge Cells Not Reportable 03/04/21 09:35 Toxic Granulation Not Reportable 03/04/21 09:35 Toxic Vacuolation Not Reportable 03/04/21 09:35 Dohle Bodies Not Reportable 03/04/21 09:35 Pelger-Huet Anomaly Not Reportable 03/04/21 09:35 Espinoza Rods Not Reportable 03/04/21 09:35 Platelet Estimate Consistent w auto 03/04/21 09:35 Clumped Platelets Not Reportable 03/04/21 09:35 Plt Clumps, EDTA Not Reportable 03/04/21 09:35 Large Platelets Not Reportable 03/04/21 09:35 Giant Platelets Not Reportable 03/04/21 09:35 Platelet Satelliting Not Reportable 03/04/21 09:35 Plt Morphology Comment Not Reportable 03/04/21 09:35 RBC Morphology Normal 03/04/21 09:35 Dimorphic RBCs Not Reportable 03/04/21 09:35 Polychromasia Not Reportable 03/04/21 09:35 Hypochromasia Not Reportable 03/04/21 09:35 Poikilocytosis Not Reportable 03/04/21 09:35 Anisocytosis Not Reportable 03/04/21 09:35 Microcytosis Not Reportable 03/04/21 09:35 Macrocytosis Not Reportable 03/04/21 09:35 Spherocytes Not Reportable 03/04/21 09:35 Pappenheimer Bodies Not Reportable 03/04/21 09:35 Sickle Cells Not Reportable 03/04/21 09:35 Target Cells Not Reportable 03/04/21 09:35 Tear Drop Cells Not Reportable 03/04/21 09:35 Ovalocytes Not Reportable 03/04/21 09:35 Helmet Cells Not Reportable 03/04/21 09:35 [place] Bodies Not Reportable 03/04/21 09:35 [place] Rings Not Reportable 03/04/21 09:35 Jocy Cells Not Reportable 03/04/21 09:35 Bite Cells Not Reportable 03/04/21 09:35 Crenated Cell Not Reportable 03/04/21 09:35 Elliptocytes Not Reportable 03/04/21 09:35 Acanthocytes (Spur) Not Reportable 03/04/21 09:35 Rouleaux Not Reportable 03/04/21 09:35 Hemoglobin C Crystals Not Reportable 03/04/21 09:35 Schistocytes Not Reportable 03/04/21 09:35 Malaria parasites Not Reportable 03/04/21 09:35 [place] Bodies Not Reportable 03/04/21 09:35 Hem Pathologist Commnt No 03/04/21 09:35 Sodium 140 mmol/L (137-145) 03/10/21 07:58 Potassium 4.1 mmol/L (3.6-5.0) 03/10/21 07:58 Chloride 102.4 mmol/L (98-107) 03/10/21 07:58 Carbon Dioxide 27 mmol/L (22-30) 03/10/21 07:58 Anion Gap 15 mmol/L 03/10/21 07:58 BUN 13 mg/dL (9-20) 03/10/21 07:58 Creatinine 0.8 mg/dL (0.8-1.3) 03/10/21 07:58 Estimated GFR > 60 ml/min 03/10/21 07:58 BUN/Creatinine Ratio 16 % 03/10/21 07:58 Glucose 100 mg/dL (75-100) 03/10/21 07:58 Lactic Acid 1.00 mmol/L (0.7-2.0) 03/04/21 15:24 Calcium 9.7 mg/dL (8.4-10.2) D 03/10/21 07:58 Total Bilirubin 0.60 mg/dL (0.1-1.2) 03/10/21 07:58 Direct Bilirubin 0.2 mg/dL (0-0.2) 03/04/21 09:35 Indirect Bilirubin 0.9 mg/dL 03/04/21 09:35 AST 28 units/L (5-40) 03/10/21 07:58 ALT 71 units/L (7-56) H 03/10/21 07:58 Alkaline Phosphatase 94 units/L (35-129) 03/10/21 07:58 Total Protein 7.1 g/dL (6.3-8.2) 03/10/21 07:58 Albumin 3.7 g/dL (3.9-5) L 03/10/21 07:58 Albumin/Globulin Ratio 1.1 % 03/10/21 07:58 Urine Color Yellow (Yellow) 03/04/21 Unknown Urine Turbidity Clear (Clear) 03/04/21 Unknown Urine pH 5.0 (5.0-7.0) 03/04/21 Unknown Ur Specific [place] 1.024 (1.003-1.030) 03/04/21 Unknown Urine Protein 30 mg/dl mg/dL (Negative) 03/04/21 Unknown Urine Glucose (UA) Neg mg/dL (Negative) 03/04/21 Unknown Urine Ketones Neg mg/dL (Negative) 03/04/21 Unknown Urine Blood Sm (Negative) 03/04/21 Unknown Urine Nitrite Neg (Negative) 03/04/21 Unknown Urine Bilirubin Neg (Negative) 03/04/21 Unknown Urine Urobilinogen < 2.0 mg/dL (<2.0) 03/04/21 Unknown Ur Leukocyte Esterase Neg (Negative) 03/04/21 Unknown Urine WBC (Auto) 1.0 /HPF (0.0-6.0) 03/04/21 Unknown Urine RBC (Auto) 1.0 /HPF (0.0-6.0) 03/04/21 Unknown Urine Mucus 1+ /HPF 03/04/21 Unknown Coronavirus (PCR) Negative (Negative) 03/09/21 Unknown Alfredo/IV: Voiding Method Indwelling Catheter Active Medications - Current Medications Current Medications: Generic Name Dose Route Start Last Admin Trade Name Freq PRN Reason Stop Dose Admin Acetaminophen 650 mg 03/04/21 16:00 03/05/21 09:05 Acetaminophen 325 Mg Tab PO 650 mg Q4H PRN Administration Pain MILD(1-3)/Fever >100.5/MORALES Albuterol 2.5 mg 03/04/21 16:00 Albuterol 2.5 Mg/3 Ml Nebu IH Q4HRT PRN Shortness Of Breath Amlodipine Besylate 10 mg 03/05/21 10:00 03/10/21 10:11 Amlodipine 10 Mg Tab PO 10 mg QDAY DARCI Administration Aspirin 81 mg 03/05/21 10:00 03/10/21 10:10 Aspirin Ec 81 Mg Tab PO 81 mg DAILY DARCI Administration Atorvastatin Calcium 40 mg 03/04/21 22:00 03/09/21 22:21 Atorvastatin 40 Mg Tab PO 40 mg QHS DARCI Administration Bisacodyl 10 mg 03/05/21 10:00 03/05/21 09:27 Bisacodyl 10 Mg Rect Supp [place] 10 mg QDAY PRN Administration Constipation Carvedilol 12.5 mg 03/04/21 22:00 03/10/21 10:11 Carvedilol 12.5 Mg Tab PO 12.5 mg BID DARCI Administration Docusate Sodium 100 mg 03/04/21 22:00 03/10/21 10:11 Docusate Sodium 100 Mg Cap PO 100 mg BID DARCI Administration Famotidine 20 mg 03/04/21 22:00 03/10/21 10:11 Famotidine 20 Mg Tab PO 20 mg BID DARCI Administration Hydrochlorothiazide 12.5 mg 03/11/21 10:00 Hydrochlorothiazide 12.5 Mg Cap PO QDAY DARCI Sodium Chloride 1,000 mls @ 75 mls/hr 03/04/21 21:00 03/10/21 03:11 Nacl 0.9% 1000 Ml IV 75 mls/hr DIRECT DARCI Administration Levetiracetam 750 mg 03/04/21 22:00 03/10/21 10:10 Levetiracetam 500 Mg Tab PO 750 mg BID DARCI Administration Lisinopril 20 mg 03/11/21 10:00 Lisinopril 20 Mg Tab PO QDAY DARCI Memantine 5 mg 03/04/21 22:00 03/10/21 10:10 Memantine 5 Mg Tab PO 5 mg BID DARCI Administration Ondansetron HCl 4 mg 03/04/21 16:00 Ondansetron 4 Mg/2 Ml Inj IV Q8H PRN Nausea And Vomiting Senna 8.6 mg 03/04/21 22:00 03/10/21 10:11 Sennosides 8.6 Mg Tab PO 8.6 mg Q12HR DARCI Administration Sodium Chloride 10 ml 03/04/21 22:00 03/10/21 10:11 Sodium Chloride 0.9% 10 Ml Flush Syringe IV 10 ml BID DARCI Administration Sodium Chloride 10 ml 03/04/21 16:00 Sodium Chloride 0.9% 10 Ml Flush Syringe IV PRN PRN LINE FLUSH Tamsulosin HCl 0.4 mg 03/05/21 10:00 03/10/21 10:11 Tamsulosin 0.4 Mg Cap PO 0.4 mg DAILY DARCI Administration
[2021-03-10 18:04] VITALS: BP 137/78
[2021-03-11] MEDS ORDERED: hydroCHLOROthiazide 12.5 MG CAP PO SCH (10:00)
[2021-03-11] MEDS ORDERED: NON-FORMULARY EACH (Lisinopril/Hydrochlorothiazide [Zestoretic 20-12.5 Mg] 1 EACH Tablet) PO SCH (10:00)
[2021-03-11] MEDS ORDERED: LISINOPRIL 20 MG TAB PO SCH (10:00)
== END 2021-03-10 21:50 | DRG 392 ==
LOC: ED 08:57 → 3A 15:21 → OBSVTOIN 03-06 11:32 → 3A 03-09 15:21
PROVIDERS: ADMIT Internal Medicine; ATTEND Internal Medicine
DX: K59.00 Constipation, unspecified (principal); R65.10 Systemic inflammatory response syndrome (SIRS) of non-infectious origin without acute organ dysfunction; R33.9 Retention of urine, unspecified; N40.1 Benign prostatic hyperplasia with lower urinary tract symptoms; E66.9 Obesity, unspecified; Z68.37 Body mass index [BMI] 37.0-37.9, adult; E86.9 Volume depletion, unspecified; I10 Essential (primary) hypertension; G20 Parkinson's disease; K21.9 Gastro-esophageal reflux disease without esophagitis; K52.9 Noninfective gastroenteritis and colitis, unspecified; E78.5 Hyperlipidemia, unspecified; D72.829 Elevated white blood cell count, unspecified; Z87.01 Personal history of pneumonia (recurrent); Z79.899 Other long term (current) drug therapy; Z79.891 Long term (current) use of opiate analgesic; Z79.01 Long term (current) use of anticoagulants; Z93.0 Tracheostomy status; Z82.49 Family history of ischemic heart disease and other diseases of the circulatory system
CPT/HCPCS: 36415; 71045; 74177; 80048; 80053; 80076; 81001; 82140; 85007; 85025; 85027; 87040; 94640; 96374; G0378; A9270-GY; J0696; J7030; Q9967; U0003

== ENCOUNTER 2021-05-09 18:48 | Emergency (ER) | payer MEDICARE ==
--- NOTE | 2021-05-09 19:09 | Emergency Department Report ---
ED CPR HPI - General Chief Complaint: Cardiac Arrest/CPR Stated Complaint: CARDIAC ARREST Time Seen by Provider: 05/09/21 19:04 Source: EMS Mode of arrival: Stretcher Limitations: Other - History of Present Illness Initial Comments: Patient is 65 years old male, group home patient with history of parkinsonism, stroke, benign prostatic hypertrophy, HDL and seizure. Patient brought to the emergency room via EMS from a local group home in a full cardiac arrest, CPR in progress. EMS reported that patient found unresponsive by group home staff. EMS stated that initial rhythm was asystole. ACLS protocol initiated by EMS. Patient had a Mehran airway. IO inserted. Patient received epinephrine and bicarb. EMS stated that patient blood glucose was 133. Upon arrival to the ER patient found to be in asystole. ACLS protocol continued. Patient received epinephrine. Unfortunately patient remained in asystole. Patient pronounced at 6:51 PM. For further information please refer to code sheets. No family available at this moment. Complaint: found unresponsive Time: 18:00 Place: NH/SNF Bystander CPR Performed: Yes ROSC in the Field: No Treatments Prior to Arrival: other airway device, chest compressions, epinephrine mgs # - Related Data Home Medications Medication Instructions Recorded Confirmed Last Taken Aspirin [Adult Aspirin] 81 mg PO DAILY 12/20/18 04/20/19 04/20/19 Carbidopa/Levodopa 25-250 [Sinemet 25 - 250 mg PO 4XD 12/20/18 04/20/19 04/20/19 25/250] Lisinopril/Hydrochlorothiazide 12.5 - 20 mg PO DAILY 12/20/18 04/20/19 04/20/19 [Zestoretic 20-12.5 mg] Memantine 5 mg PO BID 12/20/18 04/20/19 04/20/19 Tamsulosin HCl [Flomax] 0.4 mg PO DAILY 12/20/18 04/20/19 04/20/19 Previous Rx's Medication Instructions Recorded Last Taken Type levETIRAcetam [Keppra TAB] 750 mg PO BID #60 tablet 12/24/18 04/20/19 Rx Acetaminophen [Acetaminophen TAB] 2 tab PO Q4H PRN #15 tablet 04/23/19 Unknown Rx AtorvaSTATin [Lipitor] 40 mg PO QHS #30 tablet 04/23/19 Unknown Rx Famotidine [Pepcid] 20 mg PO BID #30 tablet 04/23/19 Unknown Rx amLODIPine 10 mg PO QDAY #30 tablet 04/23/19 Unknown Rx carvediloL [Coreg] 12.5 mg PO BID #60 tablet 04/23/19 Unknown Rx Docusate Sodium [Colace CAP] 100 mg PO BID #60 capsule 03/06/21 Unknown Rx Lactulose [Kristalose] 20 gm PO BID #60 packet 03/06/21 Unknown Rx Sennosides Tab [Senokot] 8.6 mg PO Q12HR PRN #30 tablet 03/06/21 Unknown Rx Tamsulosin [Flomax] 0.4 mg PO QDAY #30 cap 03/06/21 Unknown Rx bisacodyL [Dulcolax suppos] 10 mg ME QDAY PRN #30 supp.rect 03/06/21 Unknown Rx Allergies Allergy/AdvReac Type Severity Reaction Status Date / Time No Known Allergies Allergy Verified 04/20/19 19:35 ED Review of Systems ROS: Stated complaint: CARDIAC ARREST Other details as noted in HPI Comment: Unobtainable due to pts medical conditions ED Past Medical Hx - Past Medical History Previous Medical History?: Yes Hx Hypertension: Yes Hx Congestive Heart Failure: No Hx Diabetes: No Hx GERD: Yes Hx Seizures: Yes Hx Asthma: No Hx COPD: No Hx HIV: No Additional medical history: parkinson. pneumonia - Surgical History Past Surgical History?: Yes Additional Surgical History: Tracheostomy secondary to pneumonia/respiratory failure - Social History Smoking Status: Never Smoker - Medications Home Medications: Home Medications Medication Instructions Recorded Confirmed Last Taken Type Aspirin [Adult Aspirin] 81 mg PO DAILY 12/20/18 04/20/19 04/20/19 History Carbidopa/Levodopa 25-250 [Sinemet 25 - 250 mg PO 4XD 12/20/18 04/20/19 04/20/19 History 25/250] Lisinopril/Hydrochlorothiazide 12.5 - 20 mg PO DAILY 12/20/18 04/20/19 04/20/19 History [Zestoretic 20-12.5 mg] Memantine 5 mg PO BID 12/20/18 04/20/19 04/20/19 History Tamsulosin HCl [Flomax] 0.4 mg PO DAILY 12/20/18 04/20/19 04/20/19 History levETIRAcetam [Keppra TAB] 750 mg PO BID #60 tablet 12/24/18 04/20/19 04/20/19 Rx Acetaminophen [Acetaminophen TAB] 2 tab PO Q4H PRN #15 tablet 04/23/19 Unknown Rx AtorvaSTATin [Lipitor] 40 mg PO QHS #30 tablet 04/23/19 Unknown Rx Famotidine [Pepcid] 20 mg PO BID #30 tablet 04/23/19 Unknown Rx amLODIPine 10 mg PO QDAY #30 tablet 04/23/19 Unknown Rx carvediloL [Coreg] 12.5 mg PO BID #60 tablet 04/23/19 Unknown Rx Docusate Sodium [Colace CAP] 100 mg PO BID #60 capsule 03/06/21 Unknown Rx Lactulose [Kristalose] 20 gm PO BID #60 packet 03/06/21 Unknown Rx Sennosides Tab [Senokot] 8.6 mg PO Q12HR PRN #30 tablet 03/06/21 Unknown Rx Tamsulosin [Flomax] 0.4 mg PO QDAY #30 cap 03/06/21 Unknown Rx bisacodyL [Dulcolax suppos] 10 mg ME QDAY PRN #30 supp.rect 03/06/21 Unknown Rx ED Physical Exam - General Limitations: Other General appearance: other (CPR in progress.) - Head Head exam: Present: atraumatic - Eye Pupils: Present: other (Pupils 5 mm fixed and dilated.) - Respiratory Respiratory exam: Present: other (No spontaneous breathing.) - Cardiovascular Cardiovascular Exam: Present: other (No spontaneous heart tone.) - GI/Abdominal GI/Abdominal exam: Present: soft. Absent: distended - Neurological Exam Neurological exam: Present: other (CPR in progress.) - Skin Skin exam: Present: warm, normal color Critical Care Time: Yes Critical care time in (mins) excluding proc time.: 30 Critical care attestation.: If time is entered above; I have spent that time in minutes in the direct care of this critically ill patient, excluding procedure time. ED Disposition Clinical Impression: Cardiopulmonary arrest Disposition: 20 Is pt being admited?: No Condition: Stable
== END 2021-05-09 22:00 ==
LOC: ED 18:48
DX: I46.9 Cardiac arrest, cause unspecified (principal); I10 Essential (primary) hypertension; K21.9 Gastro-esophageal reflux disease without esophagitis; G40.909 Epilepsy, unspecified, not intractable, without status epilepticus; G20 Parkinson's disease; J18.9 Pneumonia, unspecified organism; Z98.890 Other specified postprocedural states
CPT/HCPCS: 92950; 99285